=== PATIENT | female | born 1975 | race Caucasian/White ===

== ENCOUNTER 2016-05-01 10:26 | Outpatient (CLI) | payer OTHER | END 2016-05-01 10:27 | disposition home or self-care (01) | DX: Z00.00 Encounter for general adult medical examination without abnormal findings (principal) ==

== ENCOUNTER 2016-10-26 15:23 | Outpatient (CLI) | payer OTHER ==
[2016-10-26 19:05] LABS: BASOPHILS # (AUTO) 0.1 10^3/uL (0.0-0.1); BASOPHILS % (AUTO) 1.1 %; EOSINOPHILS # (AUTO) 0.2 10^3/uL (0.0-0.7); EOSINOPHILS % (AUTO) 2.9 %; HCT - HEMATOCRIT 41.7 % (37.0-47.0); HGB - HEMOGLOBIN 13.7 g/dL (12.0-16.0); LYMPHOCYTES # (AUTO) 2.7 10^3/uL (1.5-3.5); LYMPHOCYTES % (AUTO) 39.7 %; MEAN CORPUSCULAR HEMOGLOBIN 33.3 pg (27.0-31.0); MEAN CORPUSCULAR HGB CONC 32.9 g/dL (32.0-36.0); MEAN CORPUSCULAR VOLUME 101.2 fL (81.0-99.0); MEAN PLATELET VOLUME 7.6 fL (7.9-10.8); MONOCYTES # (AUTO) 0.5 10^3/uL (0.0-1.0); MONOCYTES % (AUTO) 7.1 %; NEUTROPHILS # (AUTO) 3.3 10^3/uL (1.5-6.6); NEUTROPHILS % (AUTO) 49.2 %; NUCLEATED RED BLOOD CELLS AUTO 0.1 /100WBC; RED BLOOD COUNT 4.12 10^6/uL (4.20-5.40); UNCORRECTED WHITE BLOOD COUNT 6.8 x10^3/uL; WHITE BLOOD COUNT 6.8 x10^3/uL (4.8-10.8)
[2016-10-26 19:13] LABS: ALBUMIN/GLOBULIN RATIO 1.1 (1.0-2.2); BILIRUBIN,TOTAL 0.6 mg/dL (0.2-1.0); BUN - BLOOD UREA NITROGEN 18 mg/dL (6-20); CALCIUM 9.5 mg/dL (8.5-10.3); CARBON DIOXIDE - CO2 26 mmol/L (21-32); CHLORIDE 97 mmol/L (101-111); CHOL/HDL RATIO 2.6 (<4.4); CHOLESTEROL 290 mg/dL; GFR - MDRD 61 (>89); GLUCOSE 122 mg/dL (70-100); HDL CHOLESTEROL 111 mg/dL; LDL/HDL RATIO 1.3 (<4.4); POTASSIUM 4.5 mmol/L (3.5-5.0); SODIUM 134 mmol/L (135-145); TOTAL PROTEIN 7.6 g/dL (6.7-8.2); TRIGLYCERIDES 158 mg/dL; VLDL CHOLESTEROL 32 mg/dL
[2016-10-26 19:27] LABS: HEMOGLOBIN A1C 1.23 g/dL
[2016-10-26 19:32] LABS: H. PYLORI IGG ANTIBODY Negative (Negative); HPYLORI NEG QC Negative (Negative); HPYLORI POS QC POSITIVE (Positive)
== END 2016-10-26 15:24 ==
LOC: LAB.WCP 15:23
PROVIDERS: ATTEND Family Medicine
DX: E10.65 Type 1 diabetes mellitus with hyperglycemia (principal)
CPT/HCPCS: 36415; 80053; 80061; 83036; 85025; 87339

== ENCOUNTER 2017-08-20 17:40 | Inpatient (IN) | payer OTHER ==
[2017-08-20] MEDS ORDERED: SODIUM CHLORIDE 0.9% 1,000 ML IV ONE (18:01)
[2017-08-20] MEDS ORDERED: HYDROmorphone 2 MG/ML VIAL IVP STA ×2 (18:01→20:02)
[2017-08-20] MEDS ORDERED: METOCLOPRAMIDE 10 MG/2 ML VIAL IVP STA (18:01)
[2017-08-20] MEDS ORDERED: PANTOPRAZOLE 40 MG VIAL IVP STA (18:02)
--- NOTE | 2017-08-20 18:04 | ED Physician Documentation ---
PD HPI ABD PAIN - Stated complaint Stated Complaint: VOMITING - Chief complaint Chief Complaint: Abd Pain - History obtained from History obtained from: Patient, Family - History of Present Illness Timing - onset: Last night (42-year-old woman with long-standing type 1 diabetes diagnosed at age 10, history of diabetic gastroparesis and ulcers has been vomiting with blood streaks since yesterday. She does not think she is in DKA. She has upper abdominal pain that is burning in nature and nonradiating.) Review of Systems Ten Systems: 10 systems reviewed and negative Constitutional: reports: Fatigue. denies: Fever, Chills Cardiac: denies: Chest pain / pressure, Palpitations Respiratory: denies: Dyspnea, Cough GI: reports: Abdominal Pain, Nausea, Vomiting. denies: Constipation, Diarrhea PD PAST MEDICAL HISTORY - Past Medical History Cardiovascular: Hypertension Respiratory: Pneumonia Endocrine/Autoimmune: Type 1 diabetes GI: GERD : None HEENT: None Psych: Depression, Anxiety Musculoskeletal: Osteoarthritis, Osteoporosis, Chronic back pain Derm: None - Past Surgical History Past Surgical History: No - Present Medications Home Medications: Ambulatory Orders Medication Instructions Recorded Confirmed Insulin Glargine,Hum.rec.anlog 12 unit SQ DAILY 08/24/12 08/20/17 [Lantus] Albuterol [Ventolin Hfa] 2 puffs INH Q4H PRN 03/12/14 08/20/17 Metoprolol Tartrate [Lopressor] 100 mg PO DAILY 11/18/14 08/20/17 Insulin Glulisine [Apidra] 2 units SQ DAILY PRN 10/13/15 08/20/17 Levothyroxine [Synthroid] 75 mcg ORAL DAILY 10/13/15 08/20/17 Oxycodone HCl/Acetaminophen 1 - 2 each PO Q6H PRN #14 tablet 10/13/15 08/20/17 [Percocet 5-325 mg Tablet] Citalopram [CeleXA] 20 mg PO DAILY 08/20/17 08/20/17 Lisinopril 10 mg PO DAILY 08/20/17 08/20/17 - Allergies Allergies/Adverse Reactions: Allergies Allergy/AdvReac Type Severity Reaction Status Date / Time morphine Allergy Hallucinati Verified 01/26/14 10:47 ons - Social History Does the pt smoke?: Yes Smoking Status: Current every day smoker Does the pt drink ETOH?: Yes Does the pt have substance abuse?: No PD ED PE NORMAL - Vitals Vital signs reviewed: Yes - General General: Alert and oriented X 3, No acute distress - HEENT HEENT: PERRL, EOMI - Neck Neck: Supple, no meningeal sign, No bony TTP - Cardiac Cardiac: RRR, No murmur - Respiratory Respiratory: No respiratory distress, Clear bilaterally - Abdomen Abdomen: Normal bowel sounds, Soft, Non tender - Neuro Neuro: Alert and oriented X 3, Normal speech - Psych Psych: Normal mood, Normal affect Results - Vitals Vitals: Vital Signs - 24 hr 08/20/17 08/20/17 17:50 19:24 Temperature 36.4 C L Heart Rate 91 87 Respiratory 18 16 Rate Blood Pressure 138/102 H 139/79 H O2 Saturation 100 100 Oxygen O2 Source Room air - Labs Labs: Laboratory Tests 08/20/17 08/20/17 08/20/17 17:56 18:45 18:45 WBC 9.6 RBC 4.06 L Hgb 12.6 Hct 39.1 MCV 96.4 MCH 31.2 H MCHC 32.3 RDW 15.5 H Plt Count 347 MPV 7.8 L Neut # (Auto) 8.3 H Lymph # (Auto) 1.0 L [place] # (Auto) 0.3 Eos # (Auto) 0.0 Baso # (Auto) 0.0 Absolute Nucleated RBC 0.00 Nucleated RBC % 0.0 VBG pH VBG pCO2 VBG pO2 VBG HCO3 VBG Total CO2 VBG O2 Saturation VBG Base Excess Sodium 131 L Potassium 4.3 Chloride 92 L Carbon Dioxide 13 L Anion Gap 26.0 H BUN 26 H Creatinine 1.4 H Estimated GFR (MDRD) 41 L Glucose 405 H POC Whole Bld Glucose 351 H Calcium 9.7 Total Bilirubin 1.6 H AST 27 ALT 24 Alkaline Phosphatase 102 Total Protein 7.4 Albumin 4.0 Globulin 3.4 Albumin/Globulin Ratio 1.2 Lipase 17 L Serum Ketones MODERATE H 08/20/17 18:45 WBC RBC Hgb Hct MCV MCH MCHC RDW Plt Count MPV Neut # (Auto) Lymph # (Auto) [place] # (Auto) Eos # (Auto) Baso # (Auto) Absolute Nucleated RBC Nucleated RBC % VBG pH 7.279 L VBG pCO2 28.8 L VBG pO2 75.4 H VBG HCO3 13.2 L VBG Total CO2 14.1 L VBG O2 Saturation 94.6 H VBG Base Excess -12.1 L Sodium Potassium Chloride Carbon Dioxide Anion Gap BUN Creatinine Estimated GFR (MDRD) Glucose POC Whole Bld Glucose Calcium Total Bilirubin AST ALT Alkaline Phosphatase Total Protein Albumin Globulin Albumin/Globulin Ratio Lipase Serum Ketones Procedures - General procedure General procedure: She was difficult for IV access, the nurse tried and failed. I personally placed a long 22-gauge IV in the right ankle antecubital fossa after ChloraPrep which flushed and saeid well after a couple of other attempts. PD MEDICAL DECISION MAKING - ED course ED course: 42-year-old woman with long-standing diabetes presents with vomiting and hematemesis. She had no hematemesis in the department and she is hemodynamically stable with reassuring hemoglobin. She was administered IV fluids, Protonix, and divided doses of pain medication and antiemetics. She was found to be in DKA and I spoke with Dr. Keller for admission at 7:15 PM. She was placed on an insulin drip. - Critical Care Time(min): 35 Time Includes: Direct patient care, Review records, Reassess patient, Document care, Coordinate care, Medical consult, Family consult for tx dec Data interpretation: Labs Procedures included in critical care time: Peripheral IV Departure - Departure Disposition: 66 [facility] DC/Xfer Clinical Impression: Upper GI bleed Ketosis due to diabetes Qualifiers: Diabetes mellitus type: type 1 Diabetes mellitus complication detail: without coma Qualified Code(s): E10.10 - Type 1 diabetes mellitus with ketoacidosis without coma Condition: Serious Discharge Date/Time: 08/20/17 20:24
[2017-08-20 18:58] LABS: BASOPHILS % (AUTO) 0.3 %; EOSINOPHILS % (AUTO) 0.1 %; HGB - HEMOGLOBIN 12.6 g/dL (12.0-16.0); LYMPHOCYTES % (AUTO) 10.4 %; MEAN CORPUSCULAR HEMOGLOBIN 31.2 pg (27.0-31.0); MEAN CORPUSCULAR HGB CONC 32.3 g/dL (32.0-36.0); MEAN CORPUSCULAR VOLUME 96.4 fL (81.0-99.0); MEAN PLATELET VOLUME 7.8 fL (7.9-10.8); MONOCYTES # (AUTO) 0.3 10^3/uL (0.0-1.0); MONOCYTES % (AUTO) 3.1 %; NEUTROPHILS # (AUTO) 8.3 10^3/uL (1.5-6.6); NEUTROPHILS % (AUTO) 86.1 %; PLT - PLATELET COUNT 347 10^3/uL (130-450); RED BLOOD COUNT 4.06 10^6/uL (4.20-5.40); RED CELL DISTRIBUTION WIDTH 15.5 % (12.0-15.0); WHITE BLOOD COUNT 9.6 x10^3/uL (4.8-10.8)
[2017-08-20 19:07] LABS: VBG BASE EXCESS -12.1 mmol/L (-2 - +2); VBG PCO2 28.8 mmHg (41-51); VBG PH 7.279 (7.31-7.41); VBG PO2 75.4 mmHg (25-47); VBG TOTAL CO2 14.1 mmol/L (24-29)
[2017-08-20 19:09] LABS: KETONES, SERUM (ACETEST) MODERATE (NEGATIVE)
[2017-08-20 19:15] LABS: ALBUMIN/GLOBULIN RATIO 1.2 (1.0-2.2); ALKALINE PHOSPHATASE 102 IU/L (42-121); ALT ALANINE AMINOTRANSFERASE 24 IU/L (10-60); AST ASPARTATE AMINOTRANSFERASE 27 IU/L (10-42); BILIRUBIN,TOTAL 1.6 mg/dL (0.2-1.0); BUN - BLOOD UREA NITROGEN 26 mg/dL (6-20); CALCIUM 9.7 mg/dL (8.5-10.3); CARBON DIOXIDE - CO2 13 mmol/L (21-32); CHLORIDE 92 mmol/L (101-111); CREATININE 1.4 mg/dL (0.4-1.0); GFR - MDRD 41 (>89); GLUCOSE 405 mg/dL (70-100); LIPASE 17 U/L (22-51); SODIUM 131 mmol/L (135-145); TOTAL PROTEIN 7.4 g/dL (6.7-8.2)
[2017-08-20] MEDS ORDERED: INSULIN REGULAR HUMAN 100 UNIT in SODIUM CHLORIDE 0.9% 100ML 99 ML IV STA (19:28)
[2017-08-20] MEDS ORDERED: INSULIN REGULAR HUMAN 100 UNIT in SODIUM CHLORIDE 0.9% 100ML 99 ML IV SCH ×2 (19:29→22:22)
[2017-08-20] MEDS ORDERED: oxyCODONE/ACET 5/325 Prepack 4 PO PRN (19:40)
[2017-08-20] MEDS: ONDANSETRON 4 MG/2 ML VIAL IVP STA ×2 (19:49→21:03)
[2017-08-20 19:56] LABS: BASOPHILS % (AUTO) 0.3 %; EOSINOPHILS % (AUTO) 0.1 %; HGB - HEMOGLOBIN 11.7 g/dL (12.0-16.0); LYMPHOCYTES # (AUTO) 0.8 10^3/uL (1.5-3.5); LYMPHOCYTES % (AUTO) 9.1 %; MEAN CORPUSCULAR HEMOGLOBIN 31.6 pg (27.0-31.0); MEAN CORPUSCULAR VOLUME 98.7 fL (81.0-99.0); MEAN PLATELET VOLUME 7.5 fL (7.9-10.8); MONOCYTES # (AUTO) 0.3 10^3/uL (0.0-1.0); MONOCYTES % (AUTO) 3.1 %; NEUTROPHILS % (AUTO) 87.4 %; PLT - PLATELET COUNT 310 10^3/uL (130-450); RED BLOOD COUNT 3.71 10^6/uL (4.20-5.40); RED CELL DISTRIBUTION WIDTH 15.7 % (12.0-15.0); WHITE BLOOD COUNT 9.2 x10^3/uL (4.8-10.8)
[2017-08-20 19:58] LABS: VBG PH 7.292 (7.31-7.41)
[2017-08-20 19:59] LABS: VBG BASE EXCESS -13.9 mmol/L (-2 - +2); VBG PCO2 22.6 mmHg (41-51); VBG PO2 146.1 mmHg (25-47); VBG TOTAL CO2 11.4 mmol/L (24-29)
[2017-08-20] MEDS ORDERED: NS W/20 MEQ KCL 1,000 ML IV SCH (20:00)
[2017-08-20 20:21] LABS: HEMOGLOBIN A1C 0.89 g/dL
[2017-08-20 20:28] LABS: CALCIUM 8.8 mg/dL (8.5-10.3); CREATININE 1.4 mg/dL (0.4-1.0)
[2017-08-20 20:38] LABS: HB2 TOTAL 12.6 g/dL; HEMOGLOBIN A1C % 8.6 % (4.6-6.2)
[2017-08-20] MEDS: SODIUM CHLORIDE FLUSH 0.9% 10 ML SYRINGE IVP PRN (21:02)
[2017-08-20] MEDS: PANTOPRAZOLE 40 MG VIAL IVP SCH (21:02)
[2017-08-20] MEDS ORDERED: PROCHLORPERAZINE 10 MG/2 ML VIAL IVP PRN (21:05)
[2017-08-20] MEDS ORDERED: PROMETHAZINE 25 MG/1 ML VIAL IM PRN (21:05)
[2017-08-20] MEDS ORDERED: ONDANSETRON 4 MG/2 ML VIAL IVP PRN (21:05)
[2017-08-20 21:06] LABS: BILIRUBIN,URINE NEGATIVE (NEGATIVE); GLUCOSE, URINE (UA) 500 mg/dL (NEGATIVE); KETONES,URINE (UA) >=80 mg/dL (NEGATIVE); LEUKOCYTE ESTERASE, URINE NEGATIVE (NEGATIVE); NITRITE,URINE NEGATIVE (NEGATIVE); OCCULT BLOOD,URINE LARGE (NEGATIVE); PH,URINE 5.5 PH (5.0-7.5); PROTEIN,URINE NEGATIVE (NEGATIVE); UROBILINOGEN,URINE 0.2 (NORMAL) E.U./dL (NORMAL)
[2017-08-20 21:08] LABS: CLARITY,URINE CLEAR (CLEAR)
[2017-08-20] MEDS ORDERED: ONDANSETRON 4 MG/2 ML VIAL ONE (21:13)
[2017-08-20 21:20] LABS: BACTERIA,URINE Moderate /HPF (None Seen); SQUAMOUS EPITHELIAL CELL,UR MOD Squamous (<= Few); WBC CLUMPS,URINE PRESENT
[2017-08-20 22:11] LABS: CALCIUM 8.7 mg/dL (8.5-10.3); CREATININE 1.5 mg/dL (0.4-1.0)
[2017-08-20] MEDS ORDERED: ACETAMINOPHEN 325 MG TABLET PO PRN (22:29)
--- NOTE | 2017-08-20 22:30 | HISTORY & PHYSICAL EXAMINATION ---
Chief Complaint - Chief Complaint Chief Complaint: Hematemesis History of Present Illness - Admitted From Admitted From:: Emergency Department - History Obtained From Records Reviewed: Yes History obtained from: Patient Exam Limitations: None - History of Present Illness HPI Comment/Other: Patient is a 42-year-old female with a past medical history significant for type 1 diabetes since the age of 9 on insulin, hypertension, hypothyroidism, peripheral neuropathy, Charcot joints left foot, asthma, diabetic retinopathy, diabetic gastroparesis and carpal tunnel syndrome who presented to the emergency department with a chief complaint of hematemesis. The patient states that over the last few weeks she has been under a great deal of stress. She states that she has been moving from an apartment to a house and this is created stress. Also she recently had her mother moved in with her who is elderly and drinks a lot of alcohol. She has been having to take care of her mother and deal with moving into a new home all during this time. She states that she was hospitalized at [facility] earlier this year in March/ April and at that time had had dark stools and hematemesis and was found to have a gastric ulcer and was placed on omeprazole and sucralfate which she has not been taking as was prescribed. The patient states that over the last 3-4 days she has had decreased appetite and really has not eaten much since 3 days ago. She states that yesterday she was at [facility] when she became nauseated and had to vomit during the service. She states that she came home and then had another episode of emesis. She states that shortly after this she began to develop abdominal pain she states it was relocated in the epigastric region and radiated up her chest and into her throat. She states that it was a gnawing sensation and was burning up into her chest and into her throat. She states that this abdominal pain continued to get worse through the night and so did her vomiting. After several episodes of vomiting she began to notice that her emesis became dark and then this morning was dark with blood streaks. She states that she tried to drink water but could not even keep that down. She states that once she noticed blood streaks in her vomit she decided to come to the emergency department as she was concerned she was having another ulcer and bleed. The patient also admits to polydipsia but denies any polyuria. She states that she was checking her blood sugars at home and they were not significantly more elevated than her baseline. The patient denies any fevers or chills. She also denies any diarrhea, black or bloody stools. Of note the patient also admits to a 40 pound weight loss over the last 6 months. Patient denies any headaches, blurred vision, runny nose, sore throat, nasal congestion, difficulty swallowing, chest pain, palpitations, orthopnea, PND, increased lower extremity swelling, shortness of air, cough, dysuria, hematuria , joint pain, muscle aches, back pain, neck stiffness, skin rashes, skin changes , hair loss, night sweats or any focal neurologic deficits. On presentation to the emergency department the patient was afebrile and vital signs were fairly normal with heart rate of 91 and a slightly elevated blood pressure. Patient was not in any respiratory distress. The patient underwent routine lab work which revealed a anion gap metabolic acidosis with a glucose of 405 and positive serum ketones with an anion gap of 26. Given these findings patient was in diabetic ketoacidosis and placed on an insulin drip in the emergency department. The patient's blood gas revealed a pH of 7.27 with a bicarb of 13. The patient's hemoglobin was stable at 12.6 and there was no stool guaiac performed in the emergency department. The patient was admitted to the intensive care unit for diabetic ketoacidosis. History - Past Medical History Cardiovascular: reports: Hypertension Respiratory: reports: Asthma, Pneumonia Neuro: reports: Peripheral neuropathy Endocrine/Autoimmune: reports: Type 1 diabetes, HyPOthyroidism GI: reports: GERD, Other (Diabetic gastroparesis) : reports: None HEENT: reports: Other (Diabetic retinopathy) Psych: reports: Depression, Anxiety Musculoskeletal: reports: Osteoarthritis, Osteoporosis, Chronic back pain Derm: reports: None MRSA Hx?: No - Family & Social History Family History: Mother: Hypertension Family History Comment/Other: Patient denies any family history of diabetes, heart disease or cancer. Living arrangement: At home Living Situation: With spouse/s.o., With family Social History Notes: Patient lives in [place], [place]. She just recently moved from an apartment in [place] down to a house in [place]. She is living on [address] property. She recently had her mother moved in with her and has been under a lot of stress having to take care of her mother as well as the move. She states that her works at [employer] 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 She states that she has smoked most of her life but quit recently and now is back to smoking about 5 cigarettes a day. Prior to that she states that she smoked anywhere from half a pack to a pack a day for more than 20 years. She states that she does also drink coffee daily. She was previously a drinker and would drink daily but states she cut back in about a week ago she stopped drinking completely. She states that she does smoke marijuana on a regular basis but denies any other illicit drug use. The patient has never had any children. - POLST Patient has POLST: No POLST Status: Full Code Meds/Allgy - Home Medications Home Medications: Ambulatory Orders Medication Instructions Recorded Confirmed Insulin Glargine,Hum.rec.anlog 12 unit SQ DAILY 08/24/12 08/20/17 [Lantus] Albuterol [Ventolin Hfa] 2 puffs INH Q4H PRN 03/12/14 08/20/17 Metoprolol Tartrate [Lopressor] 100 mg PO DAILY 11/18/14 08/20/17 Insulin Glulisine [Apidra] 2 units SQ DAILY PRN 10/13/15 08/20/17 Levothyroxine [Synthroid] 75 mcg ORAL DAILY 10/13/15 08/20/17 Oxycodone HCl/Acetaminophen 1 - 2 each PO Q6H PRN #14 tablet 10/13/15 08/20/17 [Percocet 5-325 mg Tablet] Citalopram [CeleXA] 20 mg PO DAILY 08/20/17 08/20/17 Lisinopril 10 mg PO DAILY 08/20/17 08/20/17 - Allergies Allergies/Adverse Reactions: Allergies Allergy/AdvReac Type Severity Reaction Status Date / Time morphine Allergy Hallucinati Verified 01/26/14 10:47 ons Review of Systems - Other Findings Other Findings: A comprehensive review of systems was performed the pertinent positives and negatives are stated above in the HPI and the remainder of the review of systems is negative. Exam - Vital Signs Reviewed Vital Signs: Yes Vital Signs: Vital Signs x48h Temp Pulse Pulse Resp BP BP Pulse Ox 08/20/17 21:00 97 14 162/94 H 100 08/20/17 20:33 37 C 83 14 125/84 H 100 08/20/17 20:15 83 16 134/66 H 99 - Physical Exam General Appearance: positive: No acute distress, Alert Eyes Bilateral: positive: Normal inspection, PERRL, EOMI, No lid inflammation, Conjunctivae nml, No scleral icterus ENT: positive: ENT inspection nml, Pharynx nml, Dry mucous membranes. negative : Purulent nasal drainage, Pharyngeal erythema, Oral lesions Neck: positive: Nml inspection, Thyroid nml, No JVD, Trachea midline. negative : Thyromegaly, Lymphadenopathy (R), Lymphadenopathy (L), Carotid bruit, Tracheal deviation Respiratory: positive: Chest non-tender, No respiratory distress. negative: Wheezes, Rales, Rhonchi Cardiovascular: positive: Regular rate & rhythm, No murmur, No gallop Peripheral Pulses: positive: 2+ Abdomen: positive: Non-tender, No organomegaly, Nml bowel sounds, No distention. negative: Guarding, Rebound, Hepatomegaly Back: positive: Nml inspection. negative: CVA tenderness (R), CVA tenderness (L ) Skin: positive: Color nml, No rash, Warm. negative: Cyanosis, Diaphoresis, Pallor, Skin rash Extremities: positive: Non-tender, Full ROM, Nml appearance, No pedal edema Neurologic/Psychiatric: positive: Oriented x3, CN's nml (2-12), Motor nml, Sensation nml, Mood/affect nml Conclusion/Plan - Problem List (1) Diabetic ketoacidosis Conclusion/Plan: Patient presented to the emergency department with chief complaint of hematemesis but had been having nausea and vomiting for the last 2 days with abdominal pain, decreased appetite and polydipsia. On presentation the patient was found to be in DKA with a pH of 7.27, anion gap of 26, positive serum ketones and bicarb of 13. Patient's blood glucose was elevated at 405 and she was started on an insulin drip in the emergency department and admitted to the intensive care unit. The patient has a history of type 1 diabetes. Plan: Admit to the intensive care unit Insulin drip 0.1 U/kg/h IV fluids Check blood glucose every hour until DKA resolves Check serum ketones and anion gap every 2 hours until DKA resolves Once DKA has resolved and anion gap is closed patient will be started on home dose of Lantus, sliding scale insulin and diabetic diet Check hemoglobin A1c Qualifiers: Diabetes mellitus type: type 1 Diabetes mellitus complication detail: without coma Qualified Code(s): E10.10 - Type 1 diabetes mellitus with ketoacidosis without coma (2) MARTITA (acute kidney injury) Conclusion/Plan: Patient does have what appears to be acute kidney injury with a creatinine of 1.4 it appears her baseline creatinine is around 0.7-1. This appears to be prerenal azotemia likely secondary to DKA and dehydration. Plan: Patient will be given IV fluids We will monitor the patient's creatinine We will avoid any nephrotoxic agents (3) Hematemesis Conclusion/Plan: The patient presented with hematemesis after hours of nausea and vomiting. The patient does have a history of upper GI bleed with a gastric ulcer in March/ April 2017 where she required blood transfusion and had an EGD performed. Currently the patient's hemoglobin appears to be stable and she is not having any further hematemesis. From what patient describes it appears to be mild hematemesis and likely secondary to esophageal tear rather than gastric ulcer or upper GI bleed. Given her history however we will monitor her closely for possible GI bleed. It is concerning that the patient has had significant weight loss over the last 6 months and even if EGD is not necessary during this hospitalization would recommend outpatient EGD to follow-up on her previous gastric ulcer. Plan: Protonix IV 40 mg twice daily Monitor H&H every 6 hours for 24 hours Monitor for any further hematemesis or black or tarry stools IV fluids Transfuse if hemoglobin less than 7 Consider surgical consultation for EGD if patient's hemoglobin begins to drop or she has further signs of bleeding. Qualifiers: Nausea presence: with nausea Qualified Code(s): K92.0 - Hematemesis (4) Chronic pain Conclusion/Plan: Patient has chronic pain in her left foot secondary to Charcot joint. She states that she takes Percocet as needed at home. Currently patient is having pain in the joint as well as abdominal pain. We will place her on IV fentanyl as needed and once she is able to tolerate oral medication she will be placed on oxycodone. Qualifiers: Chronic pain type: other chronic pain Qualified Code(s): G89.29 - Other chronic pain (5) Hypertension Conclusion/Plan: Patient has history of hypertension and blood pressure was elevated on presentation. Patient be continued on her home medications and we will monitor her blood pressure while she is hospitalized. If patient's blood pressure continues to be elevated we will consider titrating her home blood pressure medications. Qualifiers: Hypertension type: essential hypertension Qualified Code(s): I10 - Essential (primary) hypertension (6) Hypothyroidism Conclusion/Plan: Patient has a history of hypothyroidism and is on Synthroid at home. While she is hospitalized she will can be continued on her home dose of Synthroid. Currently she is not having any significant symptoms of hypothyroidism. We will check her TSH in the morning. Qualifiers: Hypothyroidism type: unspecified Qualified Code(s): E03.9 - Hypothyroidism , unspecified (7) Asthma Conclusion/Plan: Patient has history of asthma but currently is not having an asthma exacerbation. She appears to be stable from the standpoint of her asthma will be placed on albuterol nebulizer as needed while she is hospitalized. Qualifiers: Asthma severity: mild Asthma persistence: intermittent Asthma complication type: uncomplicated Qualified Code(s): J45.20 - Mild intermittent asthma, uncomplicated (8) Depression Conclusion/Plan: Patient has history of depression and uses Celexa at home. We will continue her home dose of Celexa while she is hospitalized. Qualifiers: Depression Type: unspecified Qualified Code(s): F32.9 - Major depressive disorder, single episode, unspecified (9) Tobacco abuse Conclusion/Plan: Patient recently restarted tobacco in the form of 5 cigarettes daily. The patient was advised to quit smoking especially given her history of diabetes as she puts herself at risk for multiple complications. The patient understood this and is motivated to quit. She will be offered nicotine patch while she is hospitalized. - Lab Results Lab results reviewed: Yes Fish Bones: 08/21/17 00:48 08/20/17 23:30 Other Lab Results: Laboratory Tests 08/20/17 08/20/17 08/20/17 17:56 18:45 18:45 WBC 9.6 RBC 4.06 L Hgb 12.6 Hct 39.1 MCV 96.4 MCH 31.2 H MCHC 32.3 RDW 15.5 H Plt Count 347 MPV 7.8 L Neut # (Auto) 8.3 H Lymph # (Auto) 1.0 L [place] # (Auto) 0.3 Eos # (Auto) 0.0 Baso # (Auto) 0.0 Absolute Nucleated RBC 0.00 Nucleated RBC % 0.0 VBG pH VBG pCO2 VBG pO2 VBG HCO3 VBG Total CO2 VBG O2 Saturation VBG Base Excess Sodium 131 L Potassium 4.3 Chloride 92 L Carbon Dioxide 13 L Anion Gap 26.0 H BUN 26 H Creatinine 1.4 H Estimated GFR (MDRD) 41 L Glucose 405 H POC Whole Bld Glucose 351 H Glycated Hemoglobin Estim Average Glucose Calcium 9.7 Total Bilirubin 1.6 H AST 27 ALT 24 Alkaline Phosphatase 102 Total Protein 7.4 Albumin 4.0 Globulin 3.4 Albumin/Globulin Ratio 1.2 Lipase 17 L Urine Color Urine Clarity Urine pH Ur Specific Jeff Urine Protein Urine Glucose (UA) Urine Ketones Urine Occult Blood Urine Nitrite Urine Bilirubin Urine Urobilinogen Ur Leukocyte Esterase Urine RBC Urine WBC Urine WBC Clumps Ur Squamous Epith Cells Urine Bacteria Ur Microscopic Review Urine Culture Comments Serum Ketones MODERATE H 08/20/17 08/20/17 08/20/17 18:45 19:44 19:50 WBC RBC Hgb Hct MCV MCH MCHC RDW Plt Count MPV Neut # (Auto) Lymph # (Auto) [place] # (Auto) Eos # (Auto) Baso # (Auto) Absolute Nucleated RBC Nucleated RBC % VBG pH 7.279 L VBG pCO2 28.8 L VBG pO2 75.4 H VBG HCO3 13.2 L VBG Total CO2 14.1 L VBG O2 Saturation 94.6 H VBG Base Excess -12.1 L Sodium 131 L Potassium 4.2 Chloride 97 L Carbon Dioxide 13 L Anion Gap 22.0 H BUN 25 H Creatinine 1.4 H Estimated GFR (MDRD) 41 L Glucose 382 H POC Whole Bld Glucose 336 H Glycated Hemoglobin Estim Average Glucose Calcium 8.8 Total Bilirubin AST ALT Alkaline Phosphatase Total Protein Albumin Globulin Albumin/Globulin Ratio Lipase Urine Color Urine Clarity Urine pH Ur Specific Jeff Urine Protein Urine Glucose (UA) Urine Ketones Urine Occult Blood Urine Nitrite Urine Bilirubin Urine Urobilinogen Ur Leukocyte Esterase Urine RBC Urine WBC Urine WBC Clumps Ur Squamous Epith Cells Urine Bacteria Ur Microscopic Review Urine Culture Comments Serum Ketones 08/20/17 08/20/17 08/20/17 19:50 19:50 19:50 WBC 9.2 RBC 3.71 L Hgb 11.7 L Hct 36.6 L MCV 98.7 MCH 31.6 H MCHC 32.0 RDW 15.7 H Plt Count 310 MPV 7.5 L Neut # (Auto) 8.0 H Lymph # (Auto) 0.8 L [place] # (Auto) 0.3 Eos # (Auto) 0.0 Baso # (Auto) 0.0 Absolute Nucleated RBC 0.00 Nucleated RBC % 0.0 VBG pH 7.292 L VBG pCO2 22.6 L VBG pO2 146.1 H VBG HCO3 10.7 L VBG Total CO2 11.4 L VBG O2 Saturation 98.8 H VBG Base Excess -13.9 L Sodium Potassium Chloride Carbon Dioxide Anion Gap BUN Creatinine Estimated GFR (MDRD) Glucose POC Whole Bld Glucose Glycated Hemoglobin 8.6 H Estim Average Glucose 200 H Calcium Total Bilirubin AST ALT Alkaline Phosphatase Total Protein Albumin Globulin Albumin/Globulin Ratio Lipase Urine Color Urine Clarity Urine pH Ur Specific Jeff Urine Protein Urine Glucose (UA) Urine Ketones Urine Occult Blood Urine Nitrite Urine Bilirubin Urine Urobilinogen Ur Leukocyte Esterase Urine RBC Urine WBC Urine WBC Clumps Ur Squamous Epith Cells Urine Bacteria Ur Microscopic Review Urine Culture Comments Serum Ketones 08/20/17 08/20/17 08/20/17 20:30 20:52 21:40 WBC RBC Hgb Hct MCV MCH MCHC RDW Plt Count MPV Neut # (Auto) Lymph # (Auto) [place] # (Auto) Eos # (Auto) Baso # (Auto) Absolute Nucleated RBC Nucleated RBC % VBG pH VBG pCO2 VBG pO2 VBG HCO3 VBG Total CO2 VBG O2 Saturation VBG Base Excess Sodium 134 L Potassium 4.0 Chloride 101 Carbon Dioxide 20 L Anion Gap 13.0 BUN 26 H Creatinine 1.5 H Estimated GFR (MDRD) 38 L Glucose 297 H POC Whole Bld Glucose 363 H Glycated Hemoglobin Estim Average Glucose Calcium 8.7 Total Bilirubin AST ALT Alkaline Phosphatase Total Protein Albumin Globulin Albumin/Globulin Ratio Lipase Urine Color YELLOW Urine Clarity CLEAR Urine pH 5.5 Ur Specific Jeff 1.025 Urine Protein NEGATIVE Urine Glucose (UA) 500 H Urine Ketones >=80 H Urine Occult Blood LARGE H Urine Nitrite NEGATIVE Urine Bilirubin NEGATIVE Urine Urobilinogen 0.2 (NORMAL) Ur Leukocyte Esterase NEGATIVE Urine RBC 6-10 H Urine WBC 11-25 H Urine WBC Clumps PRESENT Ur Squamous Epith Cells MOD Squamous H Urine Bacteria Moderate H Ur Microscopic Review INDICATED Urine Culture Comments NOT INDICATED Serum Ketones 08/20/17 08/20/17 08/20/17 21:46 22:54 23:30 WBC RBC Hgb Hct MCV MCH MCHC RDW Plt Count MPV Neut # (Auto) Lymph # (Auto) [place] # (Auto) Eos # (Auto) Baso # (Auto) Absolute Nucleated RBC Nucleated RBC % VBG pH VBG pCO2 VBG pO2 VBG HCO3 VBG Total CO2 VBG O2 Saturation VBG Base Excess Sodium 137 Potassium 4.1 Chloride 105 Carbon Dioxide 19 L Anion Gap 13.0 BUN 24 H Creatinine 1.2 H Estimated GFR (MDRD) 49 L Glucose 232 H POC Whole Bld Glucose 317 H 245 H Glycated Hemoglobin Estim Average Glucose Calcium 8.8 Total Bilirubin AST ALT Alkaline Phosphatase Total Protein Albumin Globulin Albumin/Globulin Ratio Lipase Urine Color Urine Clarity Urine pH Ur Specific Jeff Urine Protein Urine Glucose (UA) Urine Ketones Urine Occult Blood Urine Nitrite Urine Bilirubin Urine Urobilinogen Ur Leukocyte Esterase Urine RBC Urine WBC Urine WBC Clumps Ur Squamous Epith Cells Urine Bacteria Ur Microscopic Review Urine Culture Comments Serum Ketones MODERATE H 08/21/17 08/21/17 08/21/17 00:10 00:48 00:54 WBC RBC Hgb 11.8 L Hct 37.5 MCV MCH MCHC RDW Plt Count MPV Neut # (Auto) Lymph # (Auto) [place] # (Auto) Eos # (Auto) Baso # (Auto) Absolute Nucleated RBC Nucleated RBC % VBG pH VBG pCO2 VBG pO2 VBG HCO3 VBG Total CO2 VBG O2 Saturation VBG Base Excess Sodium Potassium Chloride Carbon Dioxide Anion Gap BUN Creatinine Estimated GFR (MDRD) Glucose POC Whole Bld Glucose 211 H 182 H Glycated Hemoglobin Estim Average Glucose Calcium Total Bilirubin AST ALT Alkaline Phosphatase Total Protein Albumin Globulin Albumin/Globulin Ratio Lipase Urine Color Urine Clarity Urine pH Ur Specific Jeff Urine Protein Urine Glucose (UA) Urine Ketones Urine Occult Blood Urine Nitrite Urine Bilirubin Urine Urobilinogen Ur Leukocyte Esterase Urine RBC Urine WBC Urine WBC Clumps Ur Squamous Epith Cells Urine Bacteria Ur Microscopic Review Urine Culture Comments Serum Ketones Core Measures - Anticipated LOS I expect patient to be DC'd or transferred within 96 hours.: Yes - DVT/VTE - Prophylaxis VTE/DVT Prophylaxis med ordered at admit?: Yes
[2017-08-20] MEDS: fentaNYL 100 MCG/2 ML VIAL IVP PRN (23:23)
[2017-08-21 00:03] LABS: BUN - BLOOD UREA NITROGEN 24 mg/dL (6-20); CALCIUM 8.8 mg/dL (8.5-10.3); CARBON DIOXIDE - CO2 19 mmol/L (21-32); CHLORIDE 105 mmol/L (101-111); CREATININE 1.2 mg/dL (0.4-1.0); GFR - MDRD 49 (>89); GLUCOSE 232 mg/dL (70-100); SODIUM 137 mmol/L (135-145)
[2017-08-21 00:08] LABS: KETONES, SERUM (ACETEST) MODERATE (NEGATIVE)
[2017-08-21] MEDS: SODIUM CHLORIDE 0.9% 1,000 ML IV SCH ×4 (00:12→06:35)
[2017-08-21 01:00] LABS: HGB - HEMOGLOBIN 11.8 g/dL (12.0-16.0)
[2017-08-21] MEDS: INSULIN GLARGINE 300 UNIT/3 ML PEN SUBQ SCH ×2 (01:18→21:07)
[2017-08-21 01:41] LABS: HB2 TOTAL 12.7 g/dL; HEMOGLOBIN A1C 0.91 g/dL; HEMOGLOBIN A1C % 8.7 % (4.6-6.2)
[2017-08-21] MEDS ORDERED: ALBUTEROL NEB 2.5 MG/3 ML INH PRN (01:51)
[2017-08-21] MEDS ORDERED: DEXTROSE 5%-0.45% NACL 1,000 ML IV SCH (02:00)
[2017-08-21] MEDS: oxyCODONE 5 MG TABLET PO PRN ×5 (02:20→17:13)
[2017-08-21] MEDS: SODIUM CHLORIDE FLUSH 0.9% 10 ML SYRINGE IVP SCH ×3 (04:22→16:28)
[2017-08-21 05:39] LABS: MAGNESIUM 1.6 mg/dL (1.7-2.8); PHOSPHORUS 2.9 mg/dL (2.5-4.6)
[2017-08-21 05:45] LABS: ALBUMIN/GLOBULIN RATIO 1.1 (1.0-2.2); ALKALINE PHOSPHATASE 79 IU/L (42-121); ALT ALANINE AMINOTRANSFERASE 18 IU/L (10-60); AST ASPARTATE AMINOTRANSFERASE 22 IU/L (10-42); BILIRUBIN,TOTAL 1.1 mg/dL (0.2-1.0); BUN - BLOOD UREA NITROGEN 22 mg/dL (6-20); CALCIUM 8.2 mg/dL (8.5-10.3); CARBON DIOXIDE - CO2 17 mmol/L (21-32); CHLORIDE 107 mmol/L (101-111); GFR - MDRD 61 (>89); GLUCOSE 142 mg/dL (70-100); SODIUM 135 mmol/L (135-145); TOTAL PROTEIN 5.8 g/dL (6.7-8.2)
[2017-08-21] MEDS: fentaNYL 100 MCG/2 ML VIAL IVP PRN ×2 (07:05→21:19)
[2017-08-21 07:14] LABS: HGB - HEMOGLOBIN 11.4 g/dL (12.0-16.0)
[2017-08-21] MEDS: INSULIN ASPART 300 UNIT/3 ML PEN SUBQ SCH ×4 (08:50→21:06)
[2017-08-21] MEDS ORDERED: INSULIN REGULAR HUMAN 100 UNIT/1 ML 10 ML MDV ONE (08:52)
[2017-08-21] MEDS ORDERED: MAGNESIUM SULFATE 2 GRAM 2 GM/50 ML BAG IV ONE (09:08)
[2017-08-21] MEDS: METOPROLOL TARTRATE 50 MG TABLET PO SCH (09:47)
[2017-08-21] MEDS: LISINOPRIL 5 MG TABLET PO SCH (09:47)
[2017-08-21] MEDS: PANTOPRAZOLE 40 MG VIAL IVP SCH ×2 (09:47→21:07)
[2017-08-21] MEDS ORDERED: MAGNESIUM OXIDE 400 MG TABLET PO SCH (10:00)
[2017-08-21] MEDS: SODIUM CHLORIDE FLUSH 0.9% 10 ML SYRINGE IVP PRN ×2 (10:01→12:28)
[2017-08-21 12:20] LABS: HGB - HEMOGLOBIN 11.4 g/dL (12.0-16.0)
[2017-08-21] MEDS: NICOTINE 21 MG PATCH TOP SCH (14:43)
[2017-08-21] MEDS: SUCRALFATE 1 GM/10 ML UDC PO SCH ×4 (14:43→22:28)
[2017-08-21] MEDS: D5.45NS W/20 MEQ KCL 1,000 ML IV SCH (16:28)
--- NOTE | 2017-08-21 16:51 | PROVIDER PROGRESS NOTE ---
Subjective - Prog Note Date Prog Note Date: 08/21/17 Prog Note Time: 13:00 - Subjective Pt reports feeling: Improved (Pt says her stomach feels better) Current Medications - Current Medications Current Medications: Acetaminophen, albuterol, fentanyl, hydroxyzine, insulin, lisinopril, metoprolol ,NicoDerm, Zofran, oxycodone, pantoprazole, potassium chloride, Compazine, Phenergan, sodium chloride,Carafate Objective - Vital Signs/Intake & Output Reviewed Vital Signs: Yes Vital Signs: Vital Signs x48h Temp Pulse Pulse Resp BP Pulse Ox 08/21/17 16:00 73 160/98 H 08/21/17 15:00 70 15 111/93 H 98 08/21/17 14:00 69 15 117/79 98 08/21/17 13:00 66 13 152/102 H 96 08/21/17 12:00 66 17 138/66 H 98 08/21/17 11:00 63 16 127/84 H 97 08/21/17 10:00 36.7 C 83 31 H 184/99 H 99 08/21/17 09:20 70 16 08/21/17 09:00 83 18 143/84 H 100 Intake & Output: Intake & Output 08/18/17 08/19/17 08/20/17 08/21/17 23:59 23:59 23:59 23:59 Intake Total 5168.245 3223.718 Output Total 450 Balance 3381.298 6362.718 - Objective General Appearance: positive: No acute distress, Alert Eyes Bilateral: positive: Normal inspection, PERRL, EOMI, No lid inflammation, Conjunctivae nml, No scleral icterus ENT: positive: ENT inspection nml, Pharynx nml, No signs of dehydration Neck: positive: Nml inspection, Thyroid nml, No JVD, Trachea midline. negative : Thyromegaly Respiratory: positive: Chest non-tender, No respiratory distress, Breath sounds nml. negative: Wheezes, Rales, Rhonchi Cardiovascular: positive: Regular rate & rhythm, No murmur, No gallop Abdomen: positive: Non-tender, No organomegaly, Nml bowel sounds, No distention. negative: Guarding, Rebound Back: positive: Nml inspection. negative: CVA tenderness (R), CVA tenderness (L ) Skin: positive: Color nml, No rash, Warm, Dry, Cyanosis Extremities: positive: Non-tender, Full ROM, Nml appearance, No pedal edema Neurologic/Psychiatric: positive: Oriented x3, CN's nml (2-12), Motor nml, Sensation nml, Mood/affect nml - Lab Results Fish Bones: 08/21/17 12:10 08/21/17 05:10 Other Labs: Lab Results x24hrs 08/21/17 08/21/17 08/21/17 Range/Units 16:38 12:10 11:30 WBC (4.8-10.8) x10^3/uL RBC (4.20-5.40) 10^6/uL Hgb 11.4 L (12.0-16.0) g/dL Hct 34.0 L (37.0-47.0) % MCV (81.0-99.0) fL MCH (27.0-31.0) pg MCHC (32.0-36.0) g/dL RDW (12.0-15.0) % Plt Count (130-450) 10^3/uL MPV (7.9-10.8) fL Neut # (Auto) (1.5-6.6) 10^3/uL Lymph # (Auto) (1.5-3.5) 10^3/uL [place] # (Auto) (0.0-1.0) 10^3/uL Eos # (Auto) (0.0-0.7) 10^3/uL Baso # (Auto) (0.0-0.1) 10^3/uL Absolute Nucleated RBC x10^3/uL Nucleated RBC % /100WBC VBG pH (7.31-7.41) VBG pCO2 (41-51) mmHg VBG pO2 (25-47) mmHg VBG HCO3 (23-28) mmol/L VBG Total CO2 (24-29) mmol/L VBG O2 Saturation (60-80) % VBG Base Excess (-2 - +2) mmol/L Sodium (135-145) mmol/L Potassium (3.5-5.0) mmol/L Chloride (101-111) mmol/L Carbon Dioxide (21-32) mmol/L Anion Gap (6-13) BUN (6-20) mg/dL Creatinine (0.4-1.0) mg/dL Estimated GFR (MDRD) (>89) Glucose (70-100) mg/dL POC Whole Bld Glucose 233 H 174 H (70 - 100) mg/dL Glycated Hemoglobin (4.6-6.2) % Estim Average Glucose (70-100) Calcium (8.5-10.3) mg/dL Ionized Calcium Phosphorus (2.5-4.6) mg/dL Magnesium (1.7-2.8) mg/dL Total Bilirubin (0.2-1.0) mg/dL AST (10-42) IU/L ALT (10-60) IU/L Alkaline Phosphatase (42-121) IU/L Total Protein (6.7-8.2) g/dL Albumin (3.2-5.5) g/dL Globulin (2.1-4.2) g/dL Albumin/Globulin Ratio (1.0-2.2) TSH (0.34-5.60) uIU/mL Urine Color Urine Clarity (CLEAR) Urine pH (5.0-7.5) PH Ur Specific [place] (1.002-1.030) Urine Protein (NEGATIVE) mg/dL Urine Glucose (UA) (NEGATIVE) mg/dL Urine Ketones (NEGATIVE) mg/dL Urine Occult Blood (NEGATIVE) Urine Nitrite (NEGATIVE) Urine Bilirubin (NEGATIVE) Urine Urobilinogen (NORMAL) E.U./dL Ur Leukocyte Esterase (NEGATIVE) Urine RBC (0-5) /HPF Urine WBC (0-5) /HPF Urine WBC Clumps Ur Squamous Epith Cells (<= Few) Urine Bacteria (None Seen) /HPF Ur Microscopic Review Urine Culture Comments Serum Ketones (NEGATIVE) 08/21/17 08/21/17 08/21/17 Range/Units 09:35 07:35 07:00 WBC (4.8-10.8) x10^3/uL RBC (4.20-5.40) 10^6/uL Hgb 11.4 L (12.0-16.0) g/dL Hct 33.7 L (37.0-47.0) % MCV (81.0-99.0) fL MCH (27.0-31.0) pg MCHC (32.0-36.0) g/dL RDW (12.0-15.0) % Plt Count (130-450) 10^3/uL MPV (7.9-10.8) fL Neut # (Auto) (1.5-6.6) 10^3/uL Lymph # (Auto) (1.5-3.5) 10^3/uL [place] # (Auto) (0.0-1.0) 10^3/uL Eos # (Auto) (0.0-0.7) 10^3/uL Baso # (Auto) (0.0-0.1) 10^3/uL Absolute Nucleated RBC x10^3/uL Nucleated RBC % /100WBC VBG pH (7.31-7.41) VBG pCO2 (41-51) mmHg VBG pO2 (25-47) mmHg VBG HCO3 (23-28) mmol/L VBG Total CO2 (24-29) mmol/L VBG O2 Saturation (60-80) % VBG Base Excess (-2 - +2) mmol/L Sodium (135-145) mmol/L Potassium (3.5-5.0) mmol/L Chloride (101-111) mmol/L Carbon Dioxide (21-32) mmol/L Anion Gap (6-13) BUN (6-20) mg/dL Creatinine (0.4-1.0) mg/dL Estimated GFR (MDRD) (>89) Glucose (70-100) mg/dL POC Whole Bld Glucose 161 H (70 - 100) mg/dL Glycated Hemoglobin (4.6-6.2) % Estim Average Glucose (70-100) Calcium (8.5-10.3) mg/dL Ionized Calcium Phosphorus (2.5-4.6) mg/dL Magnesium (1.7-2.8) mg/dL Total Bilirubin (0.2-1.0) mg/dL AST (10-42) IU/L ALT (10-60) IU/L Alkaline Phosphatase (42-121) IU/L Total Protein (6.7-8.2) g/dL Albumin (3.2-5.5) g/dL Globulin (2.1-4.2) g/dL Albumin/Globulin Ratio (1.0-2.2) TSH (0.34-5.60) uIU/mL Urine Color Urine Clarity (CLEAR) Urine pH (5.0-7.5) PH Ur Specific [place] (1.002-1.030) Urine Protein (NEGATIVE) mg/dL Urine Glucose (UA) (NEGATIVE) mg/dL Urine Ketones (NEGATIVE) mg/dL Urine Occult Blood (NEGATIVE) Urine Nitrite (NEGATIVE) Urine Bilirubin (NEGATIVE) Urine Urobilinogen (NORMAL) E.U./dL Ur Leukocyte Esterase (NEGATIVE) Urine RBC (0-5) /HPF Urine WBC (0-5) /HPF Urine WBC Clumps Ur Squamous Epith Cells (<= Few) Urine Bacteria (None Seen) /HPF Ur Microscopic Review Urine Culture Comments Serum Ketones SMALL H (NEGATIVE) 08/21/17 08/21/17 08/21/17 Range/Units 05:10 05:10 03:18 WBC (4.8-10.8) x10^3/uL RBC (4.20-5.40) 10^6/uL Hgb (12.0-16.0) g/dL Hct (37.0-47.0) % MCV (81.0-99.0) fL MCH (27.0-31.0) pg MCHC (32.0-36.0) g/dL RDW (12.0-15.0) % Plt Count (130-450) 10^3/uL MPV (7.9-10.8) fL Neut # (Auto) (1.5-6.6) 10^3/uL Lymph # (Auto) (1.5-3.5) 10^3/uL [place] # (Auto) (0.0-1.0) 10^3/uL Eos # (Auto) (0.0-0.7) 10^3/uL Baso # (Auto) (0.0-0.1) 10^3/uL Absolute Nucleated RBC x10^3/uL Nucleated RBC % /100WBC VBG pH (7.31-7.41) VBG pCO2 (41-51) mmHg VBG pO2 (25-47) mmHg VBG HCO3 (23-28) mmol/L VBG Total CO2 (24-29) mmol/L VBG O2 Saturation (60-80) % VBG Base Excess (-2 - +2) mmol/L Sodium 135 (135-145) mmol/L Potassium 4.3 (3.5-5.0) mmol/L Chloride 107 (101-111) mmol/L Carbon Dioxide 17 L (21-32) mmol/L Anion Gap 11.0 (6-13) BUN 22 H (6-20) mg/dL Creatinine 1.0 (0.4-1.0) mg/dL Estimated GFR (MDRD) 61 L (>89) Glucose 142 H (70-100) mg/dL POC Whole Bld Glucose 145 H (70 - 100) mg/dL Glycated Hemoglobin (4.6-6.2) % Estim Average Glucose (70-100) Calcium 8.2 L (8.5-10.3) mg/dL Ionized Calcium YES Phosphorus 2.9 (2.5-4.6) mg/dL Magnesium 1.6 L (1.7-2.8) mg/dL Total Bilirubin 1.1 H (0.2-1.0) mg/dL AST 22 (10-42) IU/L ALT 18 (10-60) IU/L Alkaline Phosphatase 79 (42-121) IU/L Total Protein 5.8 L (6.7-8.2) g/dL Albumin 3.0 L (3.2-5.5) g/dL Globulin 2.8 (2.1-4.2) g/dL Albumin/Globulin Ratio 1.1 (1.0-2.2) TSH (0.34-5.60) uIU/mL Urine Color Urine Clarity (CLEAR) Urine pH (5.0-7.5) PH Ur Specific [place] (1.002-1.030) Urine Protein (NEGATIVE) mg/dL Urine Glucose (UA) (NEGATIVE) mg/dL Urine Ketones (NEGATIVE) mg/dL Urine Occult Blood (NEGATIVE) Urine Nitrite (NEGATIVE) Urine Bilirubin (NEGATIVE) Urine Urobilinogen (NORMAL) E.U./dL Ur Leukocyte Esterase (NEGATIVE) Urine RBC (0-5) /HPF Urine WBC (0-5) /HPF Urine WBC Clumps Ur Squamous Epith Cells (<= Few) Urine Bacteria (None Seen) /HPF Ur Microscopic Review Urine Culture Comments Serum Ketones (NEGATIVE) 08/21/17 08/21/17 08/21/17 Range/Units 02:11 00:54 00:48 WBC (4.8-10.8) x10^3/uL RBC (4.20-5.40) 10^6/uL Hgb (12.0-16.0) g/dL Hct (37.0-47.0) % MCV (81.0-99.0) fL MCH (27.0-31.0) pg MCHC (32.0-36.0) g/dL RDW (12.0-15.0) % Plt Count (130-450) 10^3/uL MPV (7.9-10.8) fL Neut # (Auto) (1.5-6.6) 10^3/uL Lymph # (Auto) (1.5-3.5) 10^3/uL [place] # (Auto) (0.0-1.0) 10^3/uL Eos # (Auto) (0.0-0.7) 10^3/uL Baso # (Auto) (0.0-0.1) 10^3/uL Absolute Nucleated RBC x10^3/uL Nucleated RBC % /100WBC VBG pH (7.31-7.41) VBG pCO2 (41-51) mmHg VBG pO2 (25-47) mmHg VBG HCO3 (23-28) mmol/L VBG Total CO2 (24-29) mmol/L VBG O2 Saturation (60-80) % VBG Base Excess (-2 - +2) mmol/L Sodium (135-145) mmol/L Potassium (3.5-5.0) mmol/L Chloride (101-111) mmol/L Carbon Dioxide (21-32) mmol/L Anion Gap (6-13) BUN (6-20) mg/dL Creatinine (0.4-1.0) mg/dL Estimated GFR (MDRD) (>89) Glucose (70-100) mg/dL POC Whole Bld Glucose 131 H 182 H (70 - 100) mg/dL Glycated Hemoglobin 8.7 H (4.6-6.2) % Estim Average Glucose 203 H (70-100) Calcium (8.5-10.3) mg/dL Ionized Calcium Phosphorus (2.5-4.6) mg/dL Magnesium (1.7-2.8) mg/dL Total Bilirubin (0.2-1.0) mg/dL AST (10-42) IU/L ALT (10-60) IU/L Alkaline Phosphatase (42-121) IU/L Total Protein (6.7-8.2) g/dL Albumin (3.2-5.5) g/dL Globulin (2.1-4.2) g/dL Albumin/Globulin Ratio (1.0-2.2) TSH (0.34-5.60) uIU/mL Urine Color Urine Clarity (CLEAR) Urine pH (5.0-7.5) PH Ur Specific [place] (1.002-1.030) Urine Protein (NEGATIVE) mg/dL Urine Glucose (UA) (NEGATIVE) mg/dL Urine Ketones (NEGATIVE) mg/dL Urine Occult Blood (NEGATIVE) Urine Nitrite (NEGATIVE) Urine Bilirubin (NEGATIVE) Urine Urobilinogen (NORMAL) E.U./dL Ur Leukocyte Esterase (NEGATIVE) Urine RBC (0-5) /HPF Urine WBC (0-5) /HPF Urine WBC Clumps Ur Squamous Epith Cells (<= Few) Urine Bacteria (None Seen) /HPF Ur Microscopic Review Urine Culture Comments Serum Ketones (NEGATIVE) 08/21/17 08/21/17 08/20/17 Range/Units 00:48 00:10 23:30 WBC (4.8-10.8) x10^3/uL RBC (4.20-5.40) 10^6/uL Hgb 11.8 L (12.0-16.0) g/dL Hct 37.5 (37.0-47.0) % MCV (81.0-99.0) fL MCH (27.0-31.0) pg MCHC (32.0-36.0) g/dL RDW (12.0-15.0) % Plt Count (130-450) 10^3/uL MPV (7.9-10.8) fL Neut # (Auto) (1.5-6.6) 10^3/uL Lymph # (Auto) (1.5-3.5) 10^3/uL [place] # (Auto) (0.0-1.0) 10^3/uL Eos # (Auto) (0.0-0.7) 10^3/uL Baso # (Auto) (0.0-0.1) 10^3/uL Absolute Nucleated RBC x10^3/uL Nucleated RBC % /100WBC VBG pH (7.31-7.41) VBG pCO2 (41-51) mmHg VBG pO2 (25-47) mmHg VBG HCO3 (23-28) mmol/L VBG Total CO2 (24-29) mmol/L VBG O2 Saturation (60-80) % VBG Base Excess (-2 - +2) mmol/L Sodium (135-145) mmol/L Potassium (3.5-5.0) mmol/L Chloride (101-111) mmol/L Carbon Dioxide (21-32) mmol/L Anion Gap (6-13) BUN (6-20) mg/dL Creatinine (0.4-1.0) mg/dL Estimated GFR (MDRD) (>89) Glucose (70-100) mg/dL POC Whole Bld Glucose 211 H (70 - 100) mg/dL Glycated Hemoglobin (4.6-6.2) % Estim Average Glucose (70-100) Calcium (8.5-10.3) mg/dL Ionized Calcium Phosphorus (2.5-4.6) mg/dL Magnesium (1.7-2.8) mg/dL Total Bilirubin (0.2-1.0) mg/dL AST (10-42) IU/L ALT (10-60) IU/L Alkaline Phosphatase (42-121) IU/L Total Protein (6.7-8.2) g/dL Albumin (3.2-5.5) g/dL Globulin (2.1-4.2) g/dL Albumin/Globulin Ratio (1.0-2.2) TSH 4.53 (0.34-5.60) uIU/mL Urine Color Urine Clarity (CLEAR) Urine pH (5.0-7.5) PH Ur Specific [place] (1.002-1.030) Urine Protein (NEGATIVE) mg/dL Urine Glucose (UA) (NEGATIVE) mg/dL Urine Ketones (NEGATIVE) mg/dL Urine Occult Blood (NEGATIVE) Urine Nitrite (NEGATIVE) Urine Bilirubin (NEGATIVE) Urine Urobilinogen (NORMAL) E.U./dL Ur Leukocyte Esterase (NEGATIVE) Urine RBC (0-5) /HPF Urine WBC (0-5) /HPF Urine WBC Clumps Ur Squamous Epith Cells (<= Few) Urine Bacteria (None Seen) /HPF Ur Microscopic Review Urine Culture Comments Serum Ketones (NEGATIVE) 08/20/17 08/20/17 08/20/17 Range/Units 23:30 22:54 21:46 WBC (4.8-10.8) x10^3/uL RBC (4.20-5.40) 10^6/uL Hgb (12.0-16.0) g/dL Hct (37.0-47.0) % MCV (81.0-99.0) fL MCH (27.0-31.0) pg MCHC (32.0-36.0) g/dL RDW (12.0-15.0) % Plt Count (130-450) 10^3/uL MPV (7.9-10.8) fL Neut # (Auto) (1.5-6.6) 10^3/uL Lymph # (Auto) (1.5-3.5) 10^3/uL [place] # (Auto) (0.0-1.0) 10^3/uL Eos # (Auto) (0.0-0.7) 10^3/uL Baso # (Auto) (0.0-0.1) 10^3/uL Absolute Nucleated RBC x10^3/uL Nucleated RBC % /100WBC VBG pH (7.31-7.41) VBG pCO2 (41-51) mmHg VBG pO2 (25-47) mmHg VBG HCO3 (23-28) mmol/L VBG Total CO2 (24-29) mmol/L VBG O2 Saturation (60-80) % VBG Base Excess (-2 - +2) mmol/L Sodium 137 (135-145) mmol/L Potassium 4.1 (3.5-5.0) mmol/L Chloride 105 (101-111) mmol/L Carbon Dioxide 19 L (21-32) mmol/L Anion Gap 13.0 (6-13) BUN 24 H (6-20) mg/dL Creatinine 1.2 H (0.4-1.0) mg/dL Estimated GFR (MDRD) 49 L (>89) Glucose 232 H (70-100) mg/dL POC Whole Bld Glucose 245 H 317 H (70 - 100) mg/dL Glycated Hemoglobin (4.6-6.2) % Estim Average Glucose (70-100) Calcium 8.8 (8.5-10.3) mg/dL Ionized Calcium Phosphorus (2.5-4.6) mg/dL Magnesium (1.7-2.8) mg/dL Total Bilirubin (0.2-1.0) mg/dL AST (10-42) IU/L ALT (10-60) IU/L Alkaline Phosphatase (42-121) IU/L Total Protein (6.7-8.2) g/dL Albumin (3.2-5.5) g/dL Globulin (2.1-4.2) g/dL Albumin/Globulin Ratio (1.0-2.2) TSH (0.34-5.60) uIU/mL Urine Color Urine Clarity (CLEAR) Urine pH (5.0-7.5) PH Ur Specific [place] (1.002-1.030) Urine Protein (NEGATIVE) mg/dL Urine Glucose (UA) (NEGATIVE) mg/dL Urine Ketones (NEGATIVE) mg/dL Urine Occult Blood (NEGATIVE) Urine Nitrite (NEGATIVE) Urine Bilirubin (NEGATIVE) Urine Urobilinogen (NORMAL) E.U./dL Ur Leukocyte Esterase (NEGATIVE) Urine RBC (0-5) /HPF Urine WBC (0-5) /HPF Urine WBC Clumps Ur Squamous Epith Cells (<= Few) Urine Bacteria (None Seen) /HPF Ur Microscopic Review Urine Culture Comments Serum Ketones MODERATE H (NEGATIVE) 08/20/17 08/20/17 08/20/17 Range/Units 21:40 20:52 20:30 WBC (4.8-10.8) x10^3/uL RBC (4.20-5.40) 10^6/uL Hgb (12.0-16.0) g/dL Hct (37.0-47.0) % MCV (81.0-99.0) fL MCH (27.0-31.0) pg MCHC (32.0-36.0) g/dL RDW (12.0-15.0) % Plt Count (130-450) 10^3/uL MPV (7.9-10.8) fL Neut # (Auto) (1.5-6.6) 10^3/uL Lymph # (Auto) (1.5-3.5) 10^3/uL [place] # (Auto) (0.0-1.0) 10^3/uL Eos # (Auto) (0.0-0.7) 10^3/uL Baso # (Auto) (0.0-0.1) 10^3/uL Absolute Nucleated RBC x10^3/uL Nucleated RBC % /100WBC VBG pH (7.31-7.41) VBG pCO2 (41-51) mmHg VBG pO2 (25-47) mmHg VBG HCO3 (23-28) mmol/L VBG Total CO2 (24-29) mmol/L VBG O2 Saturation (60-80) % VBG Base Excess (-2 - +2) mmol/L Sodium 134 L (135-145) mmol/L Potassium 4.0 (3.5-5.0) mmol/L Chloride 101 (101-111) mmol/L Carbon Dioxide 20 L (21-32) mmol/L Anion Gap 13.0 (6-13) BUN 26 H (6-20) mg/dL Creatinine 1.5 H (0.4-1.0) mg/dL Estimated GFR (MDRD) 38 L (>89) Glucose 297 H (70-100) mg/dL POC Whole Bld Glucose 363 H (70 - 100) mg/dL Glycated Hemoglobin (4.6-6.2) % Estim Average Glucose (70-100) Calcium 8.7 (8.5-10.3) mg/dL Ionized Calcium Phosphorus (2.5-4.6) mg/dL Magnesium (1.7-2.8) mg/dL Total Bilirubin (0.2-1.0) mg/dL AST (10-42) IU/L ALT (10-60) IU/L Alkaline Phosphatase (42-121) IU/L Total Protein (6.7-8.2) g/dL Albumin (3.2-5.5) g/dL Globulin (2.1-4.2) g/dL Albumin/Globulin Ratio (1.0-2.2) TSH (0.34-5.60) uIU/mL Urine Color YELLOW Urine Clarity CLEAR (CLEAR) Urine pH 5.5 (5.0-7.5) PH Ur Specific [place] 1.025 (1.002-1.030) Urine Protein NEGATIVE (NEGATIVE) mg/dL Urine Glucose (UA) 500 H (NEGATIVE) mg/dL Urine Ketones >=80 H (NEGATIVE) mg/dL Urine Occult Blood LARGE H (NEGATIVE) Urine Nitrite NEGATIVE (NEGATIVE) Urine Bilirubin NEGATIVE (NEGATIVE) Urine Urobilinogen 0.2 (NORMAL) (NORMAL) E.U./dL Ur Leukocyte Esterase NEGATIVE (NEGATIVE) Urine RBC 6-10 H (0-5) /HPF Urine WBC 11-25 H (0-5) /HPF Urine WBC Clumps PRESENT Ur Squamous Epith Cells MOD Squamous H (<= Few) Urine Bacteria Moderate H (None Seen) /HPF Ur Microscopic Review INDICATED Urine Culture Comments NOT INDICATED Serum Ketones (NEGATIVE) 08/20/17 08/20/17 08/20/17 Range/Units 19:50 19:50 19:50 WBC 9.2 (4.8-10.8) x10^3/uL RBC 3.71 L (4.20-5.40) 10^6/uL Hgb 11.7 L (12.0-16.0) g/dL Hct 36.6 L (37.0-47.0) % MCV 98.7 (81.0-99.0) fL MCH 31.6 H (27.0-31.0) pg MCHC 32.0 (32.0-36.0) g/dL RDW 15.7 H (12.0-15.0) % Plt Count 310 (130-450) 10^3/uL MPV 7.5 L (7.9-10.8) fL Neut # (Auto) 8.0 H (1.5-6.6) 10^3/uL Lymph # (Auto) 0.8 L (1.5-3.5) 10^3/uL [place] # (Auto) 0.3 (0.0-1.0) 10^3/uL Eos # (Auto) 0.0 (0.0-0.7) 10^3/uL Baso # (Auto) 0.0 (0.0-0.1) 10^3/uL Absolute Nucleated RBC 0.00 x10^3/uL Nucleated RBC % 0.0 /100WBC VBG pH 7.292 L (7.31-7.41) VBG pCO2 22.6 L (41-51) mmHg VBG pO2 146.1 H (25-47) mmHg VBG HCO3 10.7 L (23-28) mmol/L VBG Total CO2 11.4 L (24-29) mmol/L VBG O2 Saturation 98.8 H (60-80) % VBG Base Excess -13.9 L (-2 - +2) mmol/L Sodium (135-145) mmol/L Potassium (3.5-5.0) mmol/L Chloride (101-111) mmol/L Carbon Dioxide (21-32) mmol/L Anion Gap (6-13) BUN (6-20) mg/dL Creatinine (0.4-1.0) mg/dL Estimated GFR (MDRD) (>89) Glucose (70-100) mg/dL POC Whole Bld Glucose (70 - 100) mg/dL Glycated Hemoglobin 8.6 H (4.6-6.2) % Estim Average Glucose 200 H (70-100) Calcium (8.5-10.3) mg/dL Ionized Calcium Phosphorus (2.5-4.6) mg/dL Magnesium (1.7-2.8) mg/dL Total Bilirubin (0.2-1.0) mg/dL AST (10-42) IU/L ALT (10-60) IU/L Alkaline Phosphatase (42-121) IU/L Total Protein (6.7-8.2) g/dL Albumin (3.2-5.5) g/dL Globulin (2.1-4.2) g/dL Albumin/Globulin Ratio (1.0-2.2) TSH (0.34-5.60) uIU/mL Urine Color Urine Clarity (CLEAR) Urine pH (5.0-7.5) PH Ur Specific [place] (1.002-1.030) Urine Protein (NEGATIVE) mg/dL Urine Glucose (UA) (NEGATIVE) mg/dL Urine Ketones (NEGATIVE) mg/dL Urine Occult Blood (NEGATIVE) Urine Nitrite (NEGATIVE) Urine Bilirubin (NEGATIVE) Urine Urobilinogen (NORMAL) E.U./dL Ur Leukocyte Esterase (NEGATIVE) Urine RBC (0-5) /HPF Urine WBC (0-5) /HPF Urine WBC Clumps Ur Squamous Epith Cells (<= Few) Urine Bacteria (None Seen) /HPF Ur Microscopic Review Urine Culture Comments Serum Ketones (NEGATIVE) 08/20/17 08/20/17 Range/Units 19:50 19:44 WBC (4.8-10.8) x10^3/uL RBC (4.20-5.40) 10^6/uL Hgb (12.0-16.0) g/dL Hct (37.0-47.0) % MCV (81.0-99.0) fL MCH (27.0-31.0) pg MCHC (32.0-36.0) g/dL RDW (12.0-15.0) % Plt Count (130-450) 10^3/uL MPV (7.9-10.8) fL Neut # (Auto) (1.5-6.6) 10^3/uL Lymph # (Auto) (1.5-3.5) 10^3/uL [place] # (Auto) (0.0-1.0) 10^3/uL Eos # (Auto) (0.0-0.7) 10^3/uL Baso # (Auto) (0.0-0.1) 10^3/uL Absolute Nucleated RBC x10^3/uL Nucleated RBC % /100WBC VBG pH (7.31-7.41) VBG pCO2 (41-51) mmHg VBG pO2 (25-47) mmHg VBG HCO3 (23-28) mmol/L VBG Total CO2 (24-29) mmol/L VBG O2 Saturation (60-80) % VBG Base Excess (-2 - +2) mmol/L Sodium 131 L (135-145) mmol/L Potassium 4.2 (3.5-5.0) mmol/L Chloride 97 L (101-111) mmol/L Carbon Dioxide 13 L (21-32) mmol/L Anion Gap 22.0 H (6-13) BUN 25 H (6-20) mg/dL Creatinine 1.4 H (0.4-1.0) mg/dL Estimated GFR (MDRD) 41 L (>89) Glucose 382 H (70-100) mg/dL POC Whole Bld Glucose 336 H (70 - 100) mg/dL Glycated Hemoglobin (4.6-6.2) % Estim Average Glucose (70-100) Calcium 8.8 (8.5-10.3) mg/dL Ionized Calcium Phosphorus (2.5-4.6) mg/dL Magnesium (1.7-2.8) mg/dL Total Bilirubin (0.2-1.0) mg/dL AST (10-42) IU/L ALT (10-60) IU/L Alkaline Phosphatase (42-121) IU/L Total Protein (6.7-8.2) g/dL Albumin (3.2-5.5) g/dL Globulin (2.1-4.2) g/dL Albumin/Globulin Ratio (1.0-2.2) TSH (0.34-5.60) uIU/mL Urine Color Urine Clarity (CLEAR) Urine pH (5.0-7.5) PH Ur Specific [place] (1.002-1.030) Urine Protein (NEGATIVE) mg/dL Urine Glucose (UA) (NEGATIVE) mg/dL Urine Ketones (NEGATIVE) mg/dL Urine Occult Blood (NEGATIVE) Urine Nitrite (NEGATIVE) Urine Bilirubin (NEGATIVE) Urine Urobilinogen (NORMAL) E.U./dL Ur Leukocyte Esterase (NEGATIVE) Urine RBC (0-5) /HPF Urine WBC (0-5) /HPF Urine WBC Clumps Ur Squamous Epith Cells (<= Few) Urine Bacteria (None Seen) /HPF Ur Microscopic Review Urine Culture Comments Serum Ketones (NEGATIVE) ABX Reporting Has patient been on IV antibiotics over the past 48 hours?: No Assessment/Plan - Problem List (1) Diabetic ketoacidosis Impression: Resolving, resolved. The patient has been off of the insulin drip all day. She had small ketones in her blood this morning, will repeat tomorrow and expect there are not to be any ketones there at that time. Her anion gap has gone from 26-8 and her blood glucose is down in the 200s. Qualifiers: Diabetes mellitus type: type 1 Diabetes mellitus complication detail: without coma Qualified Code(s): E10.10 - Type 1 diabetes mellitus with ketoacidosis without coma (2) MARTITA (acute kidney injury) Impression: Resolving, creatinine was 1.4 on admission, down to 1.0 today. (3) Hematemesis Impression: Resolved, apparently. The patient denies any hematemesis for the last 14-16 hours. Qualifiers: Nausea presence: with nausea Qualified Code(s): K92.0 - Hematemesis (4) Chronic pain Impression: The patient has chronic left foot pain secondary to Charcot joint. She also has abdominal pain. This is been well managed with the use of IV fentanyl. Qualifiers: Chronic pain type: other chronic pain Qualified Code(s): G89.29 - Other chronic pain (5) Hypertension Impression: The patient is on lisinopril, will add hydrochlorothiazide as she is still hypertensive. Qualifiers: Hypertension type: essential hypertension Qualified Code(s): I10 - Essential (primary) hypertension (6) Hypothyroidism Impression: TSH is 4.53, continue current Synthroid dosing. Qualifiers: Hypothyroidism type: unspecified Qualified Code(s): E03.9 - Hypothyroidism , unspecified (7) Depression Impression: No new complaints of depression or anxiety. Continue Celexa. Qualifiers: Depression Type: unspecified Qualified Code(s): F32.9 - Major depressive disorder, single episode, unspecified (8) Tobacco abuse Impression: I started the patient on a nicotine patch today. She has been encouraged to quit smoking. (9) Asthma Impression: No evidence of acute exacerbation at this time, will continue to monitor we will treat if necessary. Qualifiers: Asthma severity: mild Asthma persistence: intermittent Asthma complication type: uncomplicated Qualified Code(s): J45.20 - Mild intermittent asthma, uncomplicated
[2017-08-21 18:03] LABS: HGB - HEMOGLOBIN 11.5 g/dL (12.0-16.0)
[2017-08-21] MEDS ORDERED: hydroCHLOROthiazide 12.5 MG CAPSULE PO ONE (18:21)
[2017-08-21] MEDS: hydroCHLOROthiazide 25 MG TABLET PO SCH (18:21)
[2017-08-21] MEDS: hydrOXYzine PAMOATE 25 MG CAPSULE PO PRN (18:42)
[2017-08-21] MEDS: METOCLOPRAMIDE 10 MG TABLET PO SCH (21:07)
[2017-08-22] MEDS: D5.45NS W/20 MEQ KCL 1,000 ML IV SCH (01:04)
[2017-08-22] MEDS ORDERED: NS W/20 MEQ KCL 1,000 ML IV SCH (02:00)
[2017-08-22] MEDS: oxyCODONE 5 MG TABLET PO PRN ×2 (02:01→06:48)
[2017-08-22] MEDS: hydrOXYzine PAMOATE 25 MG CAPSULE PO PRN (02:01)
[2017-08-22 04:51] LABS: BASOPHILS % (AUTO) 0.5 %; EOSINOPHILS # (AUTO) 0.3 10^3/uL (0.0-0.7); EOSINOPHILS % (AUTO) 3.3 %; HGB - HEMOGLOBIN 10.7 g/dL (12.0-16.0); LYMPHOCYTES # (AUTO) 3.1 10^3/uL (1.5-3.5); LYMPHOCYTES % (AUTO) 37.8 %; MEAN CORPUSCULAR HEMOGLOBIN 31.5 pg (27.0-31.0); MEAN CORPUSCULAR HGB CONC 32.9 g/dL (32.0-36.0); MEAN CORPUSCULAR VOLUME 95.8 fL (81.0-99.0); MEAN PLATELET VOLUME 7.3 fL (7.9-10.8); MONOCYTES # (AUTO) 0.6 10^3/uL (0.0-1.0); MONOCYTES % (AUTO) 7.1 %; NEUTROPHILS # (AUTO) 4.2 10^3/uL (1.5-6.6); NEUTROPHILS % (AUTO) 51.3 %; PLT - PLATELET COUNT 264 10^3/uL (130-450); RED BLOOD COUNT 3.39 10^6/uL (4.20-5.40); RED CELL DISTRIBUTION WIDTH 15.4 % (12.0-15.0); WHITE BLOOD COUNT 8.2 x10^3/uL (4.8-10.8)
[2017-08-22 04:55] LABS: KETONES, SERUM (ACETEST) SMALL (NEGATIVE)
[2017-08-22 05:02] LABS: ALBUMIN 2.7 g/dL (3.2-5.5); ALKALINE PHOSPHATASE 72 IU/L (42-121); ALT ALANINE AMINOTRANSFERASE 18 IU/L (10-60); AST ASPARTATE AMINOTRANSFERASE 26 IU/L (10-42); BILIRUBIN,TOTAL 0.7 mg/dL (0.2-1.0); BUN - BLOOD UREA NITROGEN 16 mg/dL (6-20); CALCIUM 8.5 mg/dL (8.5-10.3); CARBON DIOXIDE - CO2 23 mmol/L (21-32); CHLORIDE 106 mmol/L (101-111); CREATININE 0.9 mg/dL (0.4-1.0); GFR - MDRD 68 (>89); GLUCOSE 218 mg/dL (70-100); MAGNESIUM 1.6 mg/dL (1.7-2.8); PHOSPHORUS 2.3 mg/dL (2.5-4.6); SODIUM 135 mmol/L (135-145); TOTAL PROTEIN 5.3 g/dL (6.7-8.2)
[2017-08-22] MEDS ORDERED: POTASSIUM CHLORIDE 20 MEQ TABLET PO ONE ×2 (05:40→06:42)
[2017-08-22] MEDS ORDERED: MAGNESIUM OXIDE 400 MG TABLET PO ONE (06:42)
[2017-08-22] MEDS: MAGNESIUM OXIDE 400 MG TABLET PO SCH ×2 (07:22→14:28)
[2017-08-22] MEDS: NEUTRA-PHOS 250 MG TABLET PO SCH ×2 (08:24→11:02)
[2017-08-22] MEDS: SODIUM CHLORIDE FLUSH 0.9% 10 ML SYRINGE IVP SCH ×2 (08:24→08:28)
[2017-08-22] MEDS: INSULIN ASPART 300 UNIT/3 ML PEN SUBQ SCH ×2 (08:25→12:00)
[2017-08-22] MEDS: METOCLOPRAMIDE 10 MG TABLET PO SCH ×2 (08:25→11:01)
[2017-08-22] MEDS: hydroCHLOROthiazide 25 MG TABLET PO SCH (08:26)
[2017-08-22] MEDS: SUCRALFATE 1 GM/10 ML UDC PO SCH ×2 (08:26→11:04)
[2017-08-22] MEDS: LISINOPRIL 5 MG TABLET PO SCH (08:26)
[2017-08-22] MEDS: METOPROLOL TARTRATE 50 MG TABLET PO SCH (08:27)
[2017-08-22] MEDS: NICOTINE 21 MG PATCH TOP SCH (08:27)
[2017-08-22] MEDS: PANTOPRAZOLE 40 MG VIAL IVP SCH (08:27)
[2017-08-22] MEDS: fentaNYL 100 MCG/2 ML VIAL IVP PRN (10:22)
[2017-08-22 11:37] VITALS: BP 171/87
--- NOTE | 2017-08-22 11:44 | Discharge Plan ---
Discharge Plan Disposition: 01 Home, Self Care Condition: Serious Prescriptions: oxyCODONE [Roxicodone] 5 mg PO Q4HR PRN #30 tablet PRN Reason: Pain hydroCHLOROthiazide [Hydrodiuril] 25 mg PO DAILY #20 tablet Metoclopramide [Reglan] 10 mg PO ACHS #28 tablet Pantoprazole [Protonix inj] 40 mg IVP BID #20 vial Diet: Diabetic Activity Restrictions: Activity as Tolerated No Smoking: If you smoke, Please STOP! Call for help. Follow-up with: Nilo Street DO [Primary Care Provider] -
--- NOTE | 2017-08-22 12:17 | DISCHARGE SUMMARY ---
Discharge Summary Admit Date: 08/20/17 Discharge Date: 08/22/17 Discharging Provider: Lary Leal Primary Care Provider: Nilo Street Code Status: Attempt Resuscitation Condition at Discharge: Serious Discharge Disposition: Home, Self Care - DIAGNOSES Admission Diagnoses: 1. Diabetic ketoacidosis 2. Acute kidney injury 3. Hematemesis 4. Chronic pain 5. Hypertension 6. Hypothyroidism 7. Asthma 8. Depression 9. Tobacco abuse Discharge Diagnoses with Status of Each Condition: 1. Diabetic ketoacidosis -resolved almost immediately on admission. 2. Acute kidney injury- resolved, creatinine today is 0.9 3. Hematemesis- no episodes since admission. Most likely related to diabetic gastroparesis, the patient will be discharged on Reglan. 4. Chronic pain -Well-managed, patient given prescription for oxycodone on discharge. She will follow-up with her pain management doctor on Sunday. 5. Hypertension- Improved, continue lisinopril and HCTZ 6. Hypothyroidism -Continue home dosing, TSH level was 4.53 7. Asthma - Well-managed, no evidence of acute exacerbations during this hospitalization. Continue home care. 8. Depression - Well-managed, no new complaints during this hospitalization. Resume Celexa. 9. Tobacco abuse- The patient has been given a nicotine patch which has been helpful. I have encouraged her to continue smoking cessation efforts. - HPI History of Present Illness: From Dr Infante's H&P: Patient is a 42-year-old female with a past medical history significant for type 1 diabetes since the age of 9 on insulin, hypertension, hypothyroidism, peripheral neuropathy, Charcot joints left foot, asthma, diabetic retinopathy, diabetic gastroparesis and carpal tunnel syndrome who presented to the emergency department with a chief complaint of hematemesis. The patient states that over the last few weeks she has been under a great deal of stress. She states that she has been moving from an apartment to a house and this is created stress. Also she recently had her mother moved in with her who is elderly and drinks a lot of alcohol. She has been having to take care of her mother and deal with moving into a new home all during this time. She states that she was hospitalized at [facility] earlier this year in March/ April and at that time had had dark stools and hematemesis and was found to have a gastric ulcer and was placed on omeprazole and sucralfate which she has not been taking as was prescribed. The patient states that over the last 3-4 days she has had decreased appetite and really has not eaten much since 3 days ago. She states that yesterday she was at [employer] when she became nauseated and had to vomit during the service. She states that she came home and then had another episode of emesis. She states that shortly after this she began to develop abdominal pain she states it was relocated in the epigastric region and radiated up her chest and into her throat. She states that it was a gnawing sensation and was burning up into her chest and into her throat. She states that this abdominal pain continued to get worse through the night and so did her vomiting. After several episodes of vomiting she began to notice that her emesis became dark and then this morning was dark with blood streaks. She states that she tried to drink water but could not even keep that down. She states that once she noticed blood streaks in her vomit she decided to come to the emergency department as she was concerned she was having another ulcer and bleed. The patient also admits to polydipsia but denies any polyuria. She states that she was checking her blood sugars at home and they were not significantly more elevated than her baseline. The patient denies any fevers or chills. She also denies any diarrhea, black or bloody stools. Of note the patient also admits to a 40 pound weight loss over the last 6 months. Patient denies any headaches, blurred vision, runny nose, sore throat, nasal congestion, difficulty swallowing, chest pain, palpitations, orthopnea, PND, increased lower extremity swelling, shortness of air, cough, dysuria, hematuria , joint pain, muscle aches, back pain, neck stiffness, skin rashes, skin changes , hair loss, night sweats or any focal neurologic deficits. On presentation to the emergency department the patient was afebrile and vital signs were fairly normal with heart rate of 91 and a slightly elevated blood pressure. Patient was not in any respiratory distress. The patient underwent routine lab work which revealed a anion gap metabolic acidosis with a glucose of 405 and positive serum ketones with an anion gap of 26. Given these findings patient was in diabetic ketoacidosis and placed on an insulin drip in the emergency department. The patient's blood gas revealed a pH of 7.27 with a bicarb of 13. The patient's hemoglobin was stable at 12.6 and there was no stool guaiac performed in the emergency department. The patient was admitted to the intensive care unit for diabetic ketoacidosis. - HOSPITAL COURSE Hospital Course: The patient was admitted to the intensive care unit because of her diabetic ketoacidosis but was able to come off of the insulin drip within about an hour. She has remained comfortable and has not had any episodes of emesis since she was admitted. She has done well on Reglan and will continue this at home. - ALLERGIES Allergies/Adverse Reactions: Allergies Allergy/AdvReac Type Severity Reaction Status Date / Time morphine Allergy Hallucinati Verified 01/26/14 10:47 ons - MEDICATIONS Home Medications: Ambulatory Orders Medication Instructions Recorded Confirmed Insulin Glargine,Hum.rec.anlog 18 unit SQ DAILY 08/24/12 08/21/17 [Lantus] Albuterol [Ventolin Hfa] 2 puffs INH Q4H PRN 03/12/14 08/21/17 Metoprolol Tartrate [Lopressor] 100 mg PO DAILY 11/18/14 08/21/17 Insulin Glulisine [Apidra] 10 units SQ TIDWM 10/13/15 08/21/17 Levothyroxine [Synthroid] 75 mcg ORAL DAILY 10/13/15 08/21/17 Citalopram [CeleXA] 20 mg PO DAILY 08/20/17 08/21/17 Lisinopril 10 mg PO DAILY 08/20/17 08/21/17 Cyclobenzaprine HCl 10 mg PO TID PRN 08/21/17 08/21/17 Gabapentin 300 mg PO TID 08/21/17 08/21/17 Ipratropium/Albuterol Sulfate 3 ml IH QID 08/21/17 08/21/17 [Iprat-Albut 0.5-3(2.5) mg/3 ml] Metoclopramide [Reglan] 10 mg PO TID 08/21/17 08/21/17 Omeprazole 40 mg PO BID 08/21/17 08/21/17 Ondansetron [Ondansetron Odt] 4 mg PO Q6H PRN 08/21/17 08/21/17 Sucralfate 1 gm PO .QIDAC AND BEDTIME 08/21/17 08/21/17 Tramadol HCl 50 mg PO QID PRN 08/21/17 08/21/17 hydrOXYzine HCl [Hydroxyzine HCl] 50 mg PO Q6H PRN 08/21/17 08/21/17 Metoclopramide [Reglan] 10 mg PO ACHS #28 tablet 08/22/17 Nicotine 21 mg Patch [Nicoderm] 1 patch TOP DAILY patch 08/22/17 Pantoprazole [Protonix inj] 40 mg IVP BID #20 vial 08/22/17 hydroCHLOROthiazide [Hydrodiuril] 25 mg PO DAILY #20 tablet 08/22/17 oxyCODONE [Roxicodone] 5 mg PO Q4HR PRN #30 tablet 08/22/17 - PHYSICAL EXAM AT DISCHARGE General Appearance: positive: No acute distress, Alert Eyes Bilateral: positive: Normal inspection, PERRL, EOMI, No lid inflammation, Conjunctivae nml, No scleral icterus ENT: positive: ENT inspection nml, Pharynx nml, No signs of dehydration Neck: positive: Nml inspection, Thyroid nml, No JVD, Trachea midline. negative : Thyromegaly Respiratory: positive: Chest non-tender, No respiratory distress, Breath sounds nml. negative: Wheezes, Rales, Rhonchi Cardiovascular: positive: Regular rate & rhythm, No murmur, No gallop Peripheral Pulses: positive: 1+ Abdomen: positive: Non-tender, No organomegaly, Nml bowel sounds, No distention. negative: Guarding, Rebound Back: positive: Nml inspection. negative: CVA tenderness (R), CVA tenderness (L ) Skin: positive: Color nml, No rash, Warm, Dry. negative: Cyanosis Extremities: positive: Non-tender, Full ROM, Nml appearance, No pedal edema Neurologic/Psychiatric: positive: Oriented x3, CN's nml (2-12), Motor nml, Sensation nml, Mood/affect nml - LABS Result Diagrams: 08/22/17 04:20 08/22/17 04:20 - FOLLOW UP Follow Up: With Dr. Street and your pain management provider within a week. - TIME SPENT Time Spent in Discharge (Minutes): 40
== END 2017-08-22 13:40 | disposition home or self-care (01) | DRG 638 ==
LOC: ED 17:40 → ICU 19:36
PROVIDERS: ADMIT Internal Medicine; ATTEND Hospitalist
DX: E10.10 Type 1 diabetes mellitus with ketoacidosis without coma (principal); N17.9 Acute kidney failure, unspecified; K92.0 Hematemesis; E86.0 Dehydration; G89.29 Other chronic pain; I10 Essential (primary) hypertension; E03.9 Hypothyroidism, unspecified; F32.9 Major depressive disorder, single episode, unspecified; F41.9 Anxiety disorder, unspecified; E10.43 Type 1 diabetes mellitus with diabetic autonomic (poly)neuropathy; K31.84 Gastroparesis; E10.42 Type 1 diabetes mellitus with diabetic polyneuropathy; E10.610 Type 1 diabetes mellitus with diabetic neuropathic arthropathy; E10.319 Type 1 diabetes mellitus with unspecified diabetic retinopathy without macular edema; J45.20 Mild intermittent asthma, uncomplicated; K21.9 Gastro-esophageal reflux disease without esophagitis; F17.210 Nicotine dependence, cigarettes, uncomplicated; Z63.79 Other stressful life events affecting family and household; Z63.6 Dependent relative needing care at home; Z63.72 Alcoholism and drug addiction in family; Z79.891 Long term (current) use of opiate analgesic; Z79.899 Other long term (current) drug therapy; Z79.4 Long term (current) use of insulin; Z87.11 Personal history of peptic ulcer disease; Z91.14 Patient's other noncompliance with medication regimen
CPT/HCPCS: 36415; 80048; 80053; 81001; 81003; 82009; 82040; 82330; 82803; 83036; 83690; 83735; 84100; 84443; 85014; 85018; 85025; 85027; 87086; 87150; 96361; 96374; 96375; 99284; 99291; 99406

== ENCOUNTER 2017-10-07 06:32 | Inpatient (IN) | payer OTHER ==
[2017-10-07] MEDS ORDERED: ONDANSETRON 4 MG/2 ML VIAL IVP STA (06:41)
[2017-10-07] MEDS ORDERED: SODIUM CHLORIDE 0.9% 1,000 ML IV ONE ×2 (06:41→10:19)
[2017-10-07] MEDS ORDERED: ONDANSETRON ODT 4 MG TABLET TL STA (07:17)
--- NOTE | 2017-10-07 07:19 | ED Physician Documentation ---
PD HPI NVD - Stated complaint Stated Complaint: VOMITTING BLOOD/ABD PX - Chief complaint Chief Complaint: Abd Pain - History obtained from History obtained from: Patient - History of Present Illness Timing - onset: How many days ago (2) Timing - duration: Days (2) Timing - details: Gradual onset, Still present Associated symptoms: Abdominal pain, Hematemesis, Dizzy, Near syncope / syncope , Loss of appetite Contributing factors: Diabetes Improved by: Vomiting Similar symptoms before: Diagnosis (ketoacidosis) Recently seen: Clinic - Additonal information Additional information: 42 year old female with a history of type 1 diabetes since age 9 has had a urinary tract infection earlier in the week and was on some antibiotics per about 2 days ago she developed nausea and vomiting with abdominal and esophageal pain and bleeding. She feels that she is in DKA and her sugars are running high. She is under a lot of stress right now her mother is recently been hospitalized with COPD and her brother is in a bit of trouble as well. She had a cough and congestion last week and this has improved. She noticed her sugars running high yesterday. Review of Systems Constitutional: denies: Fever Eyes: denies: Decreased vision Ears: denies: Ear pain Nose: denies: Rhinorrhea / runny nose, Congestion Throat: reports: Sore throat Cardiac: reports: Chest pain / pressure. denies: Palpitations, Pedal edema, Calf pain Respiratory: denies: Dyspnea, Cough GI: reports: Abdominal Pain, Nausea, Vomiting, Hematemesis : reports: Frequency. denies: Dysuria Skin: denies: Rash Musculoskeletal: denies: Neck pain, Back pain, Extremity pain Neurologic: reports: Generalized weakness. denies: Focal weakness, Numbness PD PAST MEDICAL HISTORY - Past Medical History Past Medical History: Yes Cardiovascular: Hypertension Respiratory: Asthma, Pneumonia Neuro: Peripheral neuropathy Endocrine/Autoimmune: Type 1 diabetes, HyPOthyroidism GI: GERD, Other : None HEENT: Other Psych: Depression, Anxiety Musculoskeletal: Osteoarthritis, Osteoporosis, Chronic back pain Derm: None Other Past Medical History: Alcoholism - Past Surgical History Past Surgical History: No - Present Medications Home Medications: Ambulatory Orders Medication Instructions Recorded Confirmed Insulin Glargine,Hum.rec.anlog 15 unit SUBQ DAILY 08/24/12 10/07/17 [Lantus] Albuterol [Ventolin Hfa] 2 puffs INH Q4H PRN 03/12/14 10/07/17 Metoprolol Tartrate [Lopressor] 100 mg PO DAILY 11/18/14 10/07/17 Insulin Glulisine [Apidra] 0 - 10 units SQ TIDWM PRN 10/13/15 10/07/17 Levothyroxine [Synthroid] 75 mcg PO QDAC 10/13/15 10/07/17 Citalopram [CeleXA] 20 mg PO DAILY 08/20/17 10/07/17 Gabapentin 300 mg PO TID 08/21/17 10/07/17 Omeprazole 40 mg PO BID 08/21/17 10/07/17 Ondansetron [Ondansetron Odt] 4 mg PO Q6H PRN 08/21/17 10/07/17 Sucralfate 1 gm PO ACHS 08/21/17 10/07/17 hydrOXYzine HCl [Hydroxyzine HCl] 25 mg PO QID PRN 08/21/17 10/07/17 Metoclopramide [Reglan] 10 mg PO TID 10/07/17 10/07/17 Oxycodone HCl/Acetaminophen 1 tab PO TID PRN MDD MAX OF 3 10/07/17 10/07/17 [Oxycodone-Acetaminophen 5-325] TABS/DAY Pravastatin Sodium 20 mg PO QPM 10/07/17 10/07/17 - Allergies Allergies/Adverse Reactions: Allergies Allergy/AdvReac Type Severity Reaction Status Date / Time morphine Allergy Hallucinati Verified 01/26/14 10:47 ons - Social History Does the pt smoke?: Yes Smoking Status: Current every day smoker Does the pt drink ETOH?: Yes Does the pt have substance abuse?: No - Immunizations Immunizations are current?: Yes - POLST Patient has POLST: No POLST Status: Full Code PD ED PE NORMAL - Vitals Vital signs reviewed: Yes (tachy and diastolic hypotension) - General General: Alert and oriented X 3, Well developed/nourished, Other (dry heaves actively without blood. ) - HEENT HEENT: Atraumatic, PERRL, EOMI - Neck Neck: Supple, no meningeal sign - Cardiac Cardiac: No murmur, Other (tachy) - Respiratory Respiratory: No respiratory distress, Clear bilaterally - Abdomen Abdomen: Soft, Non tender - Back Back: No CVA TTP, No spinal TTP - Derm Derm: Normal color, Warm and dry, No rash - Neuro Neuro: Alert and oriented X 3, No motor deficit, No sensory deficit, Normal speech Eye Opening: Spontaneous Motor: Obeys Commands Verbal: Oriented GCS Score: 15 - Psych Psych: Normal mood, Normal affect Results - Vitals Vitals: Vital Signs - 24 hr 10/07/17 10/07/17 06:36 08:17 Temperature 36.0 C L Heart Rate 106 H 100 Respiratory 18 16 Rate Blood Pressure 109/59 L 111/61 O2 Saturation 94 100 Oxygen O2 Source Room air - Labs Labs: Laboratory Tests 10/07/17 10/07/17 10/07/17 07:30 07:30 07:30 WBC 14.9 H RBC 3.38 L Hgb 10.9 L Hct 33.2 L MCV 98.3 MCH 32.3 H MCHC 32.8 RDW 13.6 Plt Count 380 MPV 7.2 L Neut # (Auto) 12.7 H Lymph # (Auto) 1.2 L Hopkins # (Auto) 0.9 Eos # (Auto) 0.0 Baso # (Auto) 0.1 Absolute Nucleated RBC 0.00 Nucleated RBC % 0.0 PT 9.7 L INR 0.9 APTT 23.8 L VBG pH VBG pCO2 VBG pO2 VBG HCO3 VBG Total CO2 VBG O2 Saturation VBG Base Excess Sodium 121 L Potassium 4.4 Chloride 78 L* Carbon Dioxide 9 L* Anion Gap 34.0 H BUN 51 H Creatinine 2.0 H Estimated GFR (MDRD) 27 L Glucose 716 H* Calcium 8.4 L Total Bilirubin 2.8 H AST 18 ALT 18 Alkaline Phosphatase 105 Total Protein 7.3 Albumin 3.7 Globulin 3.6 Albumin/Globulin Ratio 1.0 Lipase 15 L Serum Ketones Blood Type Antibody Screen 10/07/17 10/07/17 10/07/17 07:30 07:30 08:12 WBC RBC Hgb Hct MCV MCH MCHC RDW Plt Count MPV Neut # (Auto) Lymph # (Auto) Hopkins # (Auto) Eos # (Auto) Baso # (Auto) Absolute Nucleated RBC Nucleated RBC % PT INR APTT VBG pH 7.233 L VBG pCO2 18.4 L VBG pO2 142.0 H VBG HCO3 7.6 L VBG Total CO2 8.1 L VBG O2 Saturation 98.2 H VBG Base Excess -17.7 L Sodium Potassium Chloride Carbon Dioxide Anion Gap BUN Creatinine Estimated GFR (MDRD) Glucose Calcium Total Bilirubin AST ALT Alkaline Phosphatase Total Protein Albumin Globulin Albumin/Globulin Ratio Lipase Serum Ketones MODERATE H Blood Type A POSITIVE Antibody Screen NEGATIVE Procedures - IVC sono (time) 0780 Bedside IVC sono: IVC measures (cm) (1.01), IVC collapsed c insp (cm) (complete) , Dehydration (est 1-1.5 liter deficit) PD MEDICAL DECISION MAKING - ED course Complexity details: reviewed old records, reviewed results, re-evaluated patient , considered differential, d/w patient ED course: 42 y/o female type one diabetic with a history of gastroparesis appears to have vomiting and ketoacidosis again. She is a difficult IV access and a line is started in her right ankle. She is started on an insulin drip at 6 units per hour and given a one liter bolus of saline. She is given protonix, carafate and mylanta as well as diluadid. Blood sugar is over 700. She is admitted to the CCU. - Sepsis Event Vital Signs: Vital Signs - 24 hr 10/07/17 10/07/17 06:36 08:17 Temperature 36.0 C L Heart Rate 106 H 100 Respiratory 18 16 Rate Blood Pressure 109/59 L 111/61 O2 Saturation 94 100 Oxygen O2 Source Room air Departure - Departure Disposition: [facility] DC/Xfer Clinical Impression: MARTITA (acute kidney injury) Diabetic ketoacidosis Qualifiers: Diabetes mellitus type: type 1 Diabetes mellitus complication detail: without coma Qualified Code(s): E10.10 - Type 1 diabetes mellitus with ketoacidosis without coma Discharge Date/Time: 10/07/17 08:55
[2017-10-07] MEDS ORDERED: INSULIN REGULAR HUMAN 100 UNIT in SODIUM CHLORIDE 0.9% 100ML 99 ML IV STA (07:41)
[2017-10-07 07:51] LABS: BASOPHILS # (AUTO) 0.1 10^3/uL (0.0-0.1); BASOPHILS % (AUTO) 0.4 %; EOSINOPHILS % (AUTO) 0.1 %; HGB - HEMOGLOBIN 10.9 g/dL (12.0-16.0); LYMPHOCYTES # (AUTO) 1.2 10^3/uL (1.5-3.5); LYMPHOCYTES % (AUTO) 8.3 %; MEAN CORPUSCULAR HEMOGLOBIN 32.3 pg (27.0-31.0); MEAN CORPUSCULAR HGB CONC 32.8 g/dL (32.0-36.0); MEAN CORPUSCULAR VOLUME 98.3 fL (81.0-99.0); MEAN PLATELET VOLUME 7.2 fL (7.9-10.8); MONOCYTES # (AUTO) 0.9 10^3/uL (0.0-1.0); MONOCYTES % (AUTO) 6.1 %; NEUTROPHILS # (AUTO) 12.7 10^3/uL (1.5-6.6); NEUTROPHILS % (AUTO) 85.1 %; PLT - PLATELET COUNT 380 10^3/uL (130-450); RED BLOOD COUNT 3.38 10^6/uL (4.20-5.40); RED CELL DISTRIBUTION WIDTH 13.6 % (12.0-15.0); WHITE BLOOD COUNT 14.9 x10^3/uL (4.8-10.8)
[2017-10-07] MEDS ORDERED: SUCRALFATE 1 GM/10 ML UDC PO STA (07:52)
[2017-10-07] MEDS ORDERED: HYDROmorphone 1 MG/ML CARPUJECT IVP STA (07:52)
[2017-10-07] MEDS ORDERED: MAG HYDROX/AL HYDROX/SIMETH 30 ML UDC PO STA (07:53)
[2017-10-07] MEDS ORDERED: PANTOPRAZOLE 40 MG VIAL IVP STA (07:54)
[2017-10-07 08:07] LABS: ALBUMIN 3.7 g/dL (3.2-5.5); BILIRUBIN,TOTAL 2.8 mg/dL (0.2-1.0); CALCIUM 8.4 mg/dL (8.5-10.3); TOTAL PROTEIN 7.3 g/dL (6.7-8.2)
[2017-10-07 08:11] LABS: INR 0.9 (0.8-1.2); PT - PROTHROMBIN TIME 9.7 secs (9.9-12.6)
[2017-10-07] MEDS ORDERED: SODIUM CHLORIDE 0.9% 100ML 100 ML IV ONE (08:11)
[2017-10-07 08:19] LABS: VBG PCO2 18.4 mmHg (41-51); VBG PH 7.233 (7.31-7.41); VBG TOTAL CO2 8.1 mmol/L (24-29)
[2017-10-07 08:20] LABS: VBG BASE EXCESS -17.7 mmol/L ([, -2 - +2])
[2017-10-07] MEDS ORDERED: ONDANSETRON 4 MG/2 ML VIAL ONE (10:10)
[2017-10-07] MEDS ORDERED: SODIUM CHLORIDE FLUSH 0.9% 10 ML SYRINGE ONE (10:11)
[2017-10-07] MEDS ORDERED: HYDROmorphone 1 MG/ML CARPUJECT ONE (10:32)
[2017-10-07] MEDS ORDERED: ACETAMINOPHEN 325 MG TABLET PO PRN (10:50)
[2017-10-07] MEDS ORDERED: PROCHLORPERAZINE 10 MG/2 ML VIAL IVP PRN (10:50)
[2017-10-07] MEDS ORDERED: HYDROmorphone 0.5 MG/0.5 ML SYRINGE IVP SCH (11:01)
[2017-10-07] MEDS ORDERED: MAG HYDROX/AL HYDROX/SIMETH 30 ML UDC PO PRN (11:14)
[2017-10-07] MEDS ORDERED: traMADol 50 MG TABLET PO PRN (11:17)
[2017-10-07] MEDS ORDERED: oxyCODONE 5 MG TABLET PO PRN (11:17)
[2017-10-07] MEDS ORDERED: CYCLOBENZAPRINE 10 MG TABLET PO PRN (11:17)
[2017-10-07] MEDS: NS W/20 MEQ KCL 1,000 ML IV SCH ×2 (11:35→21:36)
[2017-10-07 11:40] LABS: BASOPHILS # (AUTO) 0.1 10^3/uL (0.0-0.1); BASOPHILS % (AUTO) 0.5 %; HGB - HEMOGLOBIN 9.6 g/dL (12.0-16.0); LYMPHOCYTES # (AUTO) 2.3 10^3/uL (1.5-3.5); LYMPHOCYTES % (AUTO) 15.7 %; MEAN CORPUSCULAR HEMOGLOBIN 31.9 pg (27.0-31.0); MEAN CORPUSCULAR VOLUME 96.5 fL (81.0-99.0); MEAN PLATELET VOLUME 6.7 fL (7.9-10.8); MONOCYTES # (AUTO) 1.1 10^3/uL (0.0-1.0); MONOCYTES % (AUTO) 7.6 %; NEUTROPHILS # (AUTO) 11.3 10^3/uL (1.5-6.6); NEUTROPHILS % (AUTO) 76.2 %; PLT - PLATELET COUNT 345 10^3/uL (130-450); RED BLOOD COUNT 3.01 10^6/uL (4.20-5.40); RED CELL DISTRIBUTION WIDTH 13.6 % (12.0-15.0); WHITE BLOOD COUNT 14.9 x10^3/uL (4.8-10.8)
[2017-10-07 11:42] LABS: VBG PCO2 31.4 mmHg (41-51); VBG PH 7.349 (7.31-7.41)
--- NOTE | 2017-10-07 11:42 | XRAY Report ---
Procedure Date: 10/07/2017 Accession Number: [id number] / [id number] Procedure: XR - Chest for Line Placement CPT Code: FULL RESULT: EXAM: CHEST RADIOGRAPHY EXAM DATE: 10/07/2017 10:45 AM. CLINICAL HISTORY: Right IJ. COMPARISON: 05/10/2015. TECHNIQUE: 1 view. FINDINGS: Lungs/Pleura: Lower lung volumes and hypoventilatory changes. Stable atelectasis or scarring at the right lung base in the setting of lower lung volumes. No pneumothorax. No effusion. Mediastinum: Within exam limitations, the cardiomediastinal contour is normal. Other: Right IJ catheter with tip in the SVC. IMPRESSION: 1. Right IJ catheter with tip in the SVC. 2. Low lung volumes and hypoventilatory changes RADIA
[2017-10-07 11:43] LABS: VBG BASE EXCESS -7.7 mmol/L ([, -2 - +2]); VBG PO2 109.1 mmHg (25-47); VBG TOTAL CO2 17.9 mmol/L (24-29)
[2017-10-07] MEDS: CITALOPRAM 10 MG TABLET PO SCH (11:47)
[2017-10-07] MEDS: SUCRALFATE 1 GM/10 ML UDC PO SCH ×3 (11:48→21:35)
[2017-10-07] MEDS: NICOTINE 21 MG PATCH TOP SCH (11:48)
[2017-10-07] MEDS: METOCLOPRAMIDE 10 MG/2 ML VIAL IVP SCH ×3 (11:48→21:35)
[2017-10-07 11:49] LABS: CALCIUM 7.5 mg/dL (8.5-10.3); CREATININE 1.6 mg/dL (0.4-1.0); MAGNESIUM 1.6 mg/dL (1.7-2.8)
[2017-10-07] MEDS: HYDROmorphone 1 MG/ML CARPUJECT IVP PRN ×3 (11:56→21:42)
[2017-10-07] MEDS: SODIUM CHLORIDE FLUSH 0.9% 10 ML SYRINGE IVP PRN ×3 (13:38→23:22)
[2017-10-07 13:47] LABS: KETONES, SERUM (ACETEST) MODERATE (NEGATIVE)
[2017-10-07 13:51] LABS: MUDS CUTOFF CONCENTRATIONS CUTOFF CONC BELOW:
[2017-10-07 13:53] LABS: BUN - BLOOD UREA NITROGEN 44 mg/dL (6-20); CALCIUM 7.6 mg/dL (8.5-10.3); CARBON DIOXIDE - CO2 21 mmol/L (21-32); CHLORIDE 95 mmol/L (101-111); CREATININE 1.6 mg/dL (0.4-1.0); GFR - MDRD 35 (>89); GLUCOSE 275 mg/dL (70-100); MAGNESIUM 1.7 mg/dL (1.7-2.8); SODIUM 129 mmol/L (135-145)
[2017-10-07 13:54] LABS: GLUCOSE, URINE (UA) >=1000 mg/dL (NEGATIVE); KETONES,URINE (UA) >=80 mg/dL (NEGATIVE); LEUKOCYTE ESTERASE, URINE NEGATIVE (NEGATIVE); NITRITE,URINE NEGATIVE (NEGATIVE); OCCULT BLOOD,URINE NEGATIVE (NEGATIVE); PROTEIN,URINE NEGATIVE (NEGATIVE); UROBILINOGEN,URINE 0.2 (NORMAL) E.U./dL (NORMAL)
[2017-10-07 14:02] LABS: BILIRUBIN,URINE NEGATIVE (NEGATIVE); CLARITY,URINE CLEAR (CLEAR); ICTOTEST,URINE NEGATIVE
[2017-10-07 14:03] LABS: HCG UR QUAL NEGATIVE
[2017-10-07 14:09] LABS: AMPHETAMINE SCREEN,URINE NEGATIVE (NEGATIVE); BENZODIAZEPINES SCREEN, URINE NEGATIVE (NEGATIVE); COCAINE SCREEN URINE NEGATIVE (NEGATIVE); METHADONE SCREEN, URINE NEGATIVE (NEGATIVE); METHAMPHETAMINES SCREEN, URINE NEGATIVE (NEGATIVE); OPIATE SCREEN, URINE NEGATIVE (NEGATIVE); OXYCODONE SCREEN, URINE NEGATIVE (NEGATIVE); PROPOXYPHENE SCREEN, URINE NEGATIVE (NEGATIVE); TRICYCLIC ANTIDEPRESSANT,URINE NEGATIVE (NEGATIVE)
[2017-10-07] MEDS: GABAPENTIN 300 MG CAPSULE PO SCH ×2 (14:22→21:35)
[2017-10-07 15:34] LABS: KETONES, SERUM (ACETEST) SMALL (NEGATIVE)
[2017-10-07 15:35] LABS: BUN - BLOOD UREA NITROGEN 46 mg/dL (6-20); CALCIUM 7.7 mg/dL (8.5-10.3); CARBON DIOXIDE - CO2 17 mmol/L (21-32); CHLORIDE 96 mmol/L (101-111); CREATININE 1.7 mg/dL (0.4-1.0); GFR - MDRD 33 (>89); GLUCOSE 324 mg/dL (70-100); MAGNESIUM 1.8 mg/dL (1.7-2.8); SODIUM 130 mmol/L (135-145)
[2017-10-07] MEDS: cefTRIAXone 1 GM in SODIUM CHLORIDE 0.9% MINIBAG 100 ML IV SCH (16:25)
[2017-10-07] MEDS: SODIUM CHLORIDE FLUSH 0.9% 10 ML SYRINGE IVP SCH (17:16)
[2017-10-07 17:31] LABS: KETONES, SERUM (ACETEST) SMALL (NEGATIVE)
[2017-10-07 17:36] LABS: GLUCOSE 260 mg/dL (70-100)
[2017-10-07 19:23] LABS: KETONES, SERUM (ACETEST) SMALL (NEGATIVE)
[2017-10-07 19:25] LABS: GLUCOSE 223 mg/dL (70-100)
[2017-10-07] MEDS ORDERED: FAMOTIDINE 20 MG TABLET PO SCH (21:00)
[2017-10-07 21:27] LABS: KETONES, SERUM (ACETEST) SMALL (NEGATIVE)
[2017-10-07 21:29] LABS: GLUCOSE 146 mg/dL (70-100)
[2017-10-07] MEDS: PANTOPRAZOLE 40 MG VIAL IVP SCH (21:42)
[2017-10-07] MEDS: INSULIN GLARGINE 300 UNIT/3 ML PEN SUBQ SCH (22:20)
[2017-10-07] MEDS ORDERED: HYDROXYZINE HCL 25 MG PO PRN (22:37)
[2017-10-07] MEDS ORDERED: hydrOXYzine PAMOATE 25 MG CAPSULE PO PRN (22:43)
[2017-10-07] MEDS ORDERED: hydrOXYzine PAMOATE 25 MG CAPSULE PO SCH (22:44)
[2017-10-07] MEDS: hydrOXYzine PAMOATE 25 MG CAPSULE PO PRN (22:50)
[2017-10-07] MEDS: TEMAZEPAM 15 MG CAPSULE PO PRN (22:50)
--- NOTE | 2017-10-08 00:02 | HISTORY & PHYSICAL EXAMINATION ---
DATE OF SERVICE: 10/07/2017 Physician: Cassandra Gaitan MD HISTORY OF PRESENT ILLNESS: This is a 42-year-old white female with history of type 1 diabetes that she has had since the age of 9. She states that as an adult, she has been very "sloppy" in following her glucoses and having good glucose control. Over the past 6 years, however, she has become more serious, does fingersticks, follows a diet and has medical followup. The patient has had prior episodes of DKA. The patient also has a history of diabetic gastroparesis, probable upper gastrointestinal bleed about 7 months ago, asthma , chronic back pain. The patient presents with a urinary tract infection that she was on antibiotics for 1 week previously, she went to see her doctor with persistent symptoms and was ordered to have another 1 week course of the same antibiotic. She started to develop asthmatic symptoms including a productive cough yesterday. She also developed nausea and vomiting and was unable to keep any liquids or foods down. She reports that she had "coffee ground emesis." She presented to the emergency room early this morning and was found to be in DKA with hyponatremia, a pH of 7.2, complaining of heartburn and she is being placed in the ICU for DKA protocol. PAST MEDICAL HISTORY: Type 1 diabetes, prior DKA, diabetic gastroparesis for which she takes Reglan, Charcot foot of the left since November 2016, chronic back pain, asthma on inhalers p.r.n. ALLERGIES: MORPHINE MEDICATIONS 1. Insulin, both long-acting and short-acting 2. Reglan t.i.d. 3. Tylenol with codeine p.r.n. pain. 4. Hydroxyzine p.r.n. 5. Ondansetron p.r.n. nausea. 6. Celexa 20 mg daily. 7. Synthroid 75 mcg daily. 8. Omeprazole 40 mg b.i.d. 9. Gabapentin 300 mg t.i.d. 10. Pravastatin 20 mg every night. 11. Sucralfate 1 gram before meals and at bedtime. 12. Albuterol inhaler p.r.n. 13. Metoprolol tartrate 100 mg p.o. daily. REVIEW OF SYSTEMS: A comprehensive review of systems was performed and the pertinent positives are above, the rest are negative. FAMILY HISTORY: There is no history of diabetes on either side of the family. SOCIAL HISTORY: She is . She has no children. She works in the medical area. SOCIAL HISTORY: She is a smoker of less than half pack a day and is currently trying to quit, she drinks rare alcohol and uses marijuana for pain control. PHYSICAL EXAMINATION GENERAL: White female who is in no distress. She was initially obtunded in the emergency room, but is awakening with hydration. VITAL SIGNS: Blood pressure 107/55, pulse of 97 and in sinus rhythm, respiratory rate 25, now decreased down to 17. Room air saturation 98%, afebrile. HEENT: Unremarkable, except dry oral mucosa. NECK: Without JVD. No carotid bruits. LUNGS: Clear. HEART: Heart sounds normal. No audible murmur. ABDOMEN: Soft, decreased bowel sounds, nontender. No guarding or rebound. No organomegaly. EXTREMITIES: Left foot is swollen from the forefoot down. There is no redness or tenderness. She has no edema. She has good dorsalis pedis pulses bilaterally. NEUROLOGIC: Intact. LABORATORY DATA: Blood pH 7.23. CBC 14.9 with left shift, hemoglobin 10.9, MCV of 98, platelet count normal at 380. INR normal at 0.9. Urinalysis showed high glucose and high ketones, HCG was negative. Chemistry showed sodium 121, potassium 4.4, carbon dioxide 9, anion gap 34, BUN 51, creatinine 2.0, glucose 716, bilirubin 2.8, normal AST and ALT and alkaline phosphatase. Troponin not detectable. Lipase normal. Serum ketones were moderate. Her "MUDS" toxicology screen is entirely negative. EKG: Normal sinus rhythm with short WI interval and LVH voltage. CHEST X-RAY: No active pulmonary disease, and she has a CVP placed in the [facility] side. IMPRESSION/DIAGNOSES 1. Diabetic ketoacidosis with pseudo hyponatremia from very high serum glucose. 2. MARTITA, presumed volume depletion causing ATN. 3. Gastroparesis. 4. Asthmatic bronchitis. 5. Urinary tract infection, continued symptoms of dysuria. 6. Upper gastrointestinal bleed suggested by coffee-ground emesis 7. Chronic back pain. 8. Charcot's joint in a diabetic. PLAN: Place the patient in the ICU on telemetry. Begin a DKA protocol including insulin drip, saline for rehydration, institute frequent glucose checks, serum ketones checks. Start clear liquids and continue this without advancing. Obtain a surgical consult for an EGD and n.p.o. after midnight status. Continue with the medications for the gastroparesis including Reglan scheduled. Use Mylanta prn and Carafate scheduled for treating the heartburn. Continue with her beta azael, pain medication, and Gabapentin for her Charcot joint and any neuropathy pain. Continue with treatment for the UTI and the bronchitis after obtaining blood cultures, sputum culture, urine culture. Ceftriaxone IV will be started. Continue to follow her daily labs including CMP, magnesium, CBC daily. CODE STATUS: FULL CODE. DEEP VENOUS THROMBOSIS PROPHYLAXIS: SCDs, no Lovenox in her case because of the potential upper GI bleed. ATTESTATION: The patient is expected to be discharged or transferred to another facility within 96 hours: Yes. TD: 10/07/2017 18:23 [email or web address]
[2017-10-08] MEDS: SODIUM CHLORIDE FLUSH 0.9% 10 ML SYRINGE IVP SCH ×3 (01:07→18:05)
[2017-10-08] MEDS: SODIUM CHLORIDE FLUSH 0.9% 10 ML SYRINGE IVP PRN ×2 (01:07→20:23)
[2017-10-08] MEDS ORDERED: INSULIN REGULAR HUMAN 100 UNIT in SODIUM CHLORIDE 0.9% 100ML 99 ML IV SCH (02:00)
[2017-10-08 03:33] LABS: KETONES, SERUM (ACETEST) SMALL (NEGATIVE)
[2017-10-08 03:41] LABS: AMYLASE 27 U/L (28-100); LIPASE 14 U/L (22-51); PHOSPHORUS 1.8 mg/dL (2.5-4.6)
[2017-10-08] MEDS: NS W/20 MEQ KCL 1,000 ML IV SCH ×4 (04:19→20:51)
[2017-10-08] MEDS: HYDROmorphone 1 MG/ML CARPUJECT IVP PRN ×6 (05:21→22:30)
[2017-10-08 05:51] LABS: BASOPHILS # (AUTO) 0.1 10^3/uL (0.0-0.1); BASOPHILS % (AUTO) 0.5 %; EOSINOPHILS # (AUTO) 0.1 10^3/uL (0.0-0.7); EOSINOPHILS % (AUTO) 0.9 %; HGB - HEMOGLOBIN 8.9 g/dL (12.0-16.0); LYMPHOCYTES % (AUTO) 26.7 %; MEAN CORPUSCULAR HEMOGLOBIN 31.9 pg (27.0-31.0); MEAN CORPUSCULAR HGB CONC 32.7 g/dL (32.0-36.0); MEAN CORPUSCULAR VOLUME 97.5 fL (81.0-99.0); MEAN PLATELET VOLUME 6.6 fL (7.9-10.8); MONOCYTES # (AUTO) 0.7 10^3/uL (0.0-1.0); MONOCYTES % (AUTO) 6.1 %; NEUTROPHILS # (AUTO) 7.4 10^3/uL (1.5-6.6); NEUTROPHILS % (AUTO) 65.8 %; PLT - PLATELET COUNT 297 10^3/uL (130-450); RED BLOOD COUNT 2.78 10^6/uL (4.20-5.40); RED CELL DISTRIBUTION WIDTH 13.7 % (12.0-15.0); WHITE BLOOD COUNT 11.3 x10^3/uL (4.8-10.8)
[2017-10-08 06:01] LABS: ALBUMIN 2.5 g/dL (3.2-5.5); ALKALINE PHOSPHATASE 67 IU/L (42-121); ALT ALANINE AMINOTRANSFERASE 11 IU/L (10-60); AST ASPARTATE AMINOTRANSFERASE 10 IU/L (10-42); BILIRUBIN,TOTAL 0.7 mg/dL (0.2-1.0); BUN - BLOOD UREA NITROGEN 34 mg/dL (6-20); CALCIUM 7.6 mg/dL (8.5-10.3); CARBON DIOXIDE - CO2 21 mmol/L (21-32); CHLORIDE 106 mmol/L (101-111); CREATININE 1.1 mg/dL (0.4-1.0); GFR - MDRD 54 (>89); GLUCOSE 249 mg/dL (70-100); SODIUM 134 mmol/L (135-145); TOTAL PROTEIN 5.1 g/dL (6.7-8.2)
[2017-10-08 06:04] LABS: MAGNESIUM 1.7 mg/dL (1.7-2.8)
[2017-10-08] MEDS: METOCLOPRAMIDE 10 MG/2 ML VIAL IVP SCH ×3 (06:12→21:55)
[2017-10-08] MEDS: GABAPENTIN 300 MG CAPSULE PO SCH ×3 (06:12→21:55)
[2017-10-08 06:21] LABS: KETONES, SERUM (ACETEST) SMALL (NEGATIVE)
[2017-10-08] MEDS ORDERED: MAGNESIUM SULFATE 2 GRAM 2 GM/50 ML BAG IV ONE (06:21)
[2017-10-08] MEDS ORDERED: POTASSIUM PHOSPHATE 15 MMOL in SODIUM CHLORIDE 0.9% 250 ML IV ONE ×2 (06:21→09:00)
[2017-10-08 06:22] LABS: VBG PH 7.295 (7.31-7.41)
[2017-10-08 07:42] LABS: HB2 TOTAL 9.2 g/dL; HEMOGLOBIN A1C 0.85 g/dL; HEMOGLOBIN A1C % 10.6 % (4.6-6.2)
[2017-10-08] MEDS: METOPROLOL TARTRATE 50 MG TABLET PO SCH (08:18)
[2017-10-08] MEDS: CITALOPRAM 10 MG TABLET PO SCH (08:19)
[2017-10-08] MEDS: NICOTINE 21 MG PATCH TOP SCH (08:19)
[2017-10-08] MEDS: SUCRALFATE 1 GM/10 ML UDC PO SCH ×4 (08:20→21:55)
[2017-10-08] MEDS: INSULIN ASPART 300 UNIT/3 ML PEN SUBQ SCH ×4 (08:21→20:50)
[2017-10-08] MEDS: PANTOPRAZOLE 40 MG VIAL IVP SCH ×2 (08:25→20:23)
[2017-10-08] MEDS: LEVOTHYROXINE 25 MCG TABLET PO SCH (08:32)
[2017-10-08] MEDS: NEUTRA-PHOS 250 MG TABLET PO SCH ×2 (09:11→11:07)
[2017-10-08] MEDS: ALBUTEROL NEB 2.5 MG/3 ML INH PRN (11:15)
--- NOTE | 2017-10-08 11:27 | PROVIDER PROGRESS NOTE ---
Assessment/Plan - Problem List (1) Diabetic ketoacidosis Qualifiers: Diabetes mellitus type: type 1 Diabetes mellitus complication detail: without coma Qualified Code(s): E10.10 - Type 1 diabetes mellitus with ketoacidosis without coma Assessment/Plan: Her A1c was 10. She has had DM for >30 years and states she has had many visits for DM management. Today, she still has serum ketones small, but anion gap and bicarb have normalized. Her Insulin drip was stopped and she was started on Lantus and sliding scale Insulin, eating (clear liquid diet) Continue monitoring daily BMP, serum ketones every 2 hours until cleared. Continue iv hydration. (2) Dehydration Assessment/Plan: Improved clinically with no dry oral mucosa and improved BUN/creat. Continue iv saline hydration until tomorrow. (3) Upper respiratory infection Assessment/Plan: Sputum sample has many WBCs and GP cocci. Emoiric Ceftriaxone was started. Will add better GPC coverage. Await ID and MICs of GP bacteria. (4) UTI (urinary tract infection) Assessment/Plan: The patient had been on 1 week of Nitrofuantoin for outpt treatment of her UTI and still felt that she had a UTI on admission yesterday. Will continue Ceftriaxone iv Await urine culture bacteria identification results. (5) Hematemesis Qualifiers: Assessment/Plan: Pt still has heartburn but no further N/V or coffee ground emesis. Continue iv Protonix. Will stop Carafate after today for EGD visualization of gastric mucosa. Awaiting EGD. Dr alvarez wanted to wait until tomorrow since the patient still has positive serum ketones and mild hyponatremia. (6) Diabetic gastroparesis Assessment/Plan: Pt still has heartburn., but no further N/V. Continue Reglan scheduled dosing and prn Compazine. (7) Anemia Assessment/Plan: Will check Iron stores, B12 and Folate. Will start Ferrous Gluconate since there was coffee ground emesis suggesting Fe- deficiency anemia. Monitor daily CBC. (8) Charcot's joint arthropathy in type 1 diabetes mellitus Assessment/Plan: Pt has no redness and will need outpt management of the L foot Charcot's joint. - Current Meds Current Meds: Current Medications Generic Name Dose Route Start Last Admin Trade Name Freq PRN Reason Stop Dose Admin Albuterol 2.5 mg 10/07/17 11:32 10/08/17 11:15 INH 2.5 mg RTQ4H PRN Administration Wheezing Citalopram Hydrobromide 20 mg 10/07/17 12:00 10/08/17 08:19 Celexa PO 20 mg DAILY FIDENCIO Administration Gabapentin 300 mg 10/07/17 14:00 10/08/17 06:12 Neurontin PO 300 mg TID FIDENCIO Administration Hydromorphone HCl 1 mg 10/07/17 10:50 10/08/17 11:07 Dilaudid Inj Carp IVP 1 mg Q2HR PRN Administration Pain 8 to 10 Hydroxyzine Pamoate 25 mg 10/07/17 22:44 10/07/17 22:50 Vistaril PO 25 mg QID PRN Administration Itching Potassium Chloride/Sodium Chloride 1,000 mls @ 150 mls/hr 10/07/17 11:00 11:10 Normal Saline 0.9% W/20 Meq Kcl IV 150 mls/hr .Q6H40M FIDENCIO Administration Ceftriaxone Sodium 1 gm/ 100 mls @ 200 mls/hr 10/07/17 16:00 10/07/17 16:55 Sodium Chloride IV Infused Q24H FIDENCIO Infusion Insulin Aspart 1 - 9 unit 10/08/17 08:00 10/08/17 08:21 Novolog SUBQ 5 unit 0800,1200,1700,2100 FIDENCIO Administration Protocol Insulin Glargine 15 unit 10/07/17 21:51 10/07/17 22:20 Lantus Solostar SUBQ 15 unit QPM FIDENCIO Administration Levothyroxine Sodium 75 mcg 10/08/17 09:00 10/08/17 08:32 Synthroid PO 75 mcg DAILY FIDENCIO Administration Metoclopramide HCl 5 mg 10/07/17 12:00 10/08/17 06:12 Reglan Inj IVP 5 mg Q8HR FIDENCIO Administration Metoprolol Tartrate 100 mg 10/08/17 09:00 10/08/17 08:18 Lopressor PO 100 mg DAILY FIDENCIO Administration Nicotine 1 patch 10/07/17 12:00 10/08/17 08:19 Nicoderm TOP 1 patch DAILY FIDENCIO Administration Oxycodone HCl 5 mg 10/07/17 11:17 10/07/17 20:22 Roxicodone PO 5 mg Q4HR PRN Administration PAIN Pantoprazole Sodium 40 mg 10/07/17 21:00 10/08/17 08:25 Protonix IVP 40 mg BID FIDENCIO Administration Sodium Chloride 10 ml 10/07/17 17:00 10/08/17 08:25 Normal Saline Flush 0.9% IVP 10 ml 0100,0900,1700 FIDENCIO Administration Sodium Chloride 10 ml 10/07/17 10:50 10/08/17 01:07 Normal Saline Flush 0.9% IVP 10 ml PRN PRN Administration NEEDED PER PROVIDER ORDERS Sucralfate 1 gm 10/07/17 12:00 10/08/17 11:11 Carafate PO 10/08/17 23:00 1 gm 0700,1100,1600,2200 FIDENCIO Administration Temazepam 15 mg 10/07/17 10:50 10/07/17 22:50 Restoril PO 15 mg QPM PRN Administration Insomnia - Lab Result Fish Bone Diagrams: 10/08/17 05:08 10/08/17 05:08 - Additional Planning My Orders: My Active Orders 10/07/17 10:50 Activity Orders [RC] Routine Daily Weight [RC] 0600 IO [RC] Q1HR Initiate Bowel Care Protocol [RC] QSHIFT Initiate ICU Electrolyte Prot. [RC] .protocol Initiate Line Care Protocol [RC] .protocol Initiate Personal Care Protoco [RC] .protocol Vital Signs [RC] Q1HR Acetaminophen [Tylenol] 650 mg PO Q4HR PRN HYDROmorphone INJ CARP [Dilaudid Inj Carp] 1 mg IVP Q2HR PRN Prochlorperazine Inj [Compazine Inj] 10 mg IVP Q6HR PRN Sodium Chloride Flush 0.9% [Normal Saline Flush 0.9%] 10 ml IVP PRN PRN Temazepam [Restoril] 15 mg PO QPM PRN Code Status [OTHERS] Routine Condition of Patient [OTHERS] Routine DVT Prophylaxis [OTHERS] Routine 10/07/17 10:52 Oral Care - Nursing [RC] Routine Telemetry- [RC] Routine 10/07/17 10:57 Oxygen Therapy [RC] .PRN SCDs [RC] QSHIFT 10/07/17 11:00 Ns W/20 Meq KCl [Normal Saline 0.9% W/20 Meq KCl] 1,000 ml IV 150 mls/hr 10/07/17 11:08 Blood Glucose POC [RC] 0800,1200,1700,2100 Initiate Hypoglycemia Protocol [RC] .protocol Notify Provider - Specific Ins [RC] PRN 10/07/17 11:14 Mag Hydrox/Al Hydrox/Simeth [Mylanta Plus] 30 ml PO Q4HR PRN 10/07/17 11:17 Cyclobenzaprine [Flexeril] 10 mg PO TID PRN oxyCODONE [Roxicodone] 5 mg PO Q4HR PRN traMADol [Ultram] 50 mg PO QID PRN 10/07/17 11:30 CULTURE, BLOOD #1 [RM] Urgent 10/07/17 11:32 Albuterol 2.5 mg INH RTQ4H PRN 10/07/17 12:00 Citalopram [CeleXA] 20 mg PO DAILY Metoclopramide Inj [Reglan Inj] 5 mg IVP Q8HR Nicotine 21 mg Patch [Nicoderm] 1 patch TOP DAILY Sucralfate [Carafate] 1 gm PO 0700,1100,1600,2200 10/07/17 12:17 CULTURE, BLOOD #1 [RM] Urgent 10/07/17 14:00 Gabapentin [Neurontin] 300 mg PO TID 10/07/17 16:00 cefTRIAXone [Rocephin] 1 gm Sodium Chloride 0.9% Minibag [Normal Saline 0.9% Minibag] 100 ml IV Q24H 10/07/17 17:00 Sodium Chloride Flush 0.9% [Normal Saline Flush 0.9%] 10 ml IVP 0100,0900, 1700 10/07/17 17:30 CUL, RESPIRATORY [RM] Routine 10/07/17 21:00 Pantoprazole [Protonix] 40 mg IVP BID 10/07/17 22:44 hydrOXYzine PAMOATE [Vistaril] 25 mg PO QID PRN 10/08/17 09:00 Levothyroxine [Synthroid] 75 mcg PO DAILY Metoprolol Tartrate [Lopressor] 100 mg PO DAILY 10/08/17 11:08 KETONES, SERUM (ACETEST) [CHEM] Timed 10/08/17 11:20 Nebulizer [Nebulizer/MDI Tx.] [RC] .PRN 07/23/18 Breakfast Clear Liquid Diet [DIET] 10/09/17 05:00 CBC - COMP BLD CT W/AUTO DIFF [HEME] DAILYLAB MAGNESIUM [CHEM] DAILYLAB 10/10/17 05:00 CBC - COMP BLD CT W/AUTO DIFF [HEME] DAILYLAB MAGNESIUM [CHEM] DAILYLAB Subjective - Subjective Patient Reports: Feeling Better, Resting Comfortably, Fatigue Objective Vital Signs: Vital Signs - 24 hr 10/07/17 10/07/17 10/07/17 11:36 12:00 14:00 Temperature Heart Rate [ 95 96 97 Brachial] Respiratory 16 15 25 H Rate Blood Pressure Blood Pressure 111/63 94/52 L 107/55 L [Left Brachial artery] O2 Saturation 97 96 98 10/07/17 10/07/17 10/07/17 15:00 16:00 17:00 Temperature 36.8 C Heart Rate [ 94 93 92 Brachial] Respiratory 20 17 17 Rate Blood Pressure Blood Pressure 101/53 L 95/52 L 99/60 [Left Brachial artery] O2 Saturation 98 98 98 10/07/17 10/07/17 10/07/17 18:00 19:00 20:12 Temperature 36.7 C Heart Rate [ 97 97 96 Brachial] Respiratory 17 22 20 Rate Blood Pressure Blood Pressure 114/56 L 120/71 102/71 [Left Brachial artery] O2 Saturation 98 98 100 10/07/17 10/07/17 10/07/17 21:00 22:00 23:00 Temperature Heart Rate [ 98 92 99 Brachial] Respiratory 17 17 20 Rate Blood Pressure Blood Pressure 123/76 105/59 L 121/71 [Left Brachial artery] O2 Saturation 10/08/17 10/08/17 10/08/17 00:06 01:00 02:00 Temperature 37.1 C Heart Rate [ 82 78 77 Brachial] Respiratory 13 14 14 Rate Blood Pressure Blood Pressure 104/55 L 106/60 114/69 [Left Brachial artery] O2 Saturation 100 10/08/17 10/08/17 10/08/17 03:00 04:00 04:22 Temperature 36.5 C Heart Rate [ 82 74 73 Brachial] Respiratory 14 14 14 Rate Blood Pressure Blood Pressure 115/63 109/72 [Left Brachial artery] O2 Saturation 95 10/08/17 10/08/17 10/08/17 05:00 06:00 07:00 Temperature Heart Rate [ 81 84 82 Brachial] Respiratory 14 13 13 Rate Blood Pressure Blood Pressure 103/69 119/72 97/63 [Left Brachial artery] O2 Saturation 10/08/17 10/08/17 10/08/17 08:13 08:18 09:00 Temperature Heart Rate [ 90 87 Brachial] Respiratory 14 12 Rate Blood Pressure 167/98 H Blood Pressure 97/63 125/78 [Left Brachial artery] O2 Saturation 98 10/08/17 10:00 Temperature Heart Rate [ 68 Brachial] Respiratory 12 Rate Blood Pressure Blood Pressure 114/83 H [Left Brachial artery] O2 Saturation Oxygen O2 Source Room air I&O (Last 24 Hrs): Intake and Output Totals x24h 10/06/17 10/07/17 10/08/17 23:59 23:59 23:59 Intake Total 3051.2 3740.0 Output Total 850 750 Balance 2201.2 2990.0 General: Alert, Oriented x3 HEENT: Mucous membr. moist/pink Neck: Supple Neuro: Non Focal Cardiovascular: Regular rate, No murmurs Respiratory: No respiratory distress, Breath sounds nml, Other (R CVP line in place.) Abdomen: Soft Extremities: Other (L foot swollen, no change from yesterday) - Results Results: Laboratory Results WBC 11.3 x10^3/uL (4.8-10.8) H 10/08/17 05:08 RBC 2.78 10^6/uL (4.20-5.40) L 10/08/17 05:08 Hgb 8.9 g/dL (12.0-16.0) L 10/08/17 05:08 Hct 27.1 % (37.0-47.0) L 10/08/17 05:08 MCV 97.5 fL (81.0-99.0) 10/08/17 05:08 MCH 31.9 pg (27.0-31.0) H 10/08/17 05:08 MCHC 32.7 g/dL (32.0-36.0) 10/08/17 05:08 RDW 13.7 % (12.0-15.0) 10/08/17 05:08 Plt Count 297 10^3/uL (130-450) 10/08/17 05:08 MPV 6.6 fL (7.9-10.8) L 10/08/17 05:08 Neut # (Auto) 7.4 10^3/uL (1.5-6.6) H 10/08/17 05:08 Lymph # (Auto) 3.0 10^3/uL (1.5-3.5) 10/08/17 05:08 [place] # (Auto) 0.7 10^3/uL (0.0-1.0) 10/08/17 05:08 Eos # (Auto) 0.1 10^3/uL (0.0-0.7) 10/08/17 05:08 Baso # (Auto) 0.1 10^3/uL (0.0-0.1) 10/08/17 05:08 Absolute Nucleated RBC 0.00 x10^3/uL 10/08/17 05:08 Nucleated RBC % 0.0 /100WBC 10/08/17 05:08 PT 9.7 secs (9.9-12.6) L 10/07/17 07:30 INR 0.9 (0.8-1.2) 10/07/17 07:30 APTT 23.8 secs (24.9-33.3) L 10/07/17 07:30 VBG pH 7.295 (7.31-7.41) L 10/08/17 05:08 VBG pCO2 31.4 mmHg (41-51) L 10/07/17 11:30 VBG pO2 109.1 mmHg (25-47) H 10/07/17 11:30 VBG HCO3 16.9 mmol/L (23-28) L 10/07/17 11:30 VBG Total CO2 17.9 mmol/L (24-29) L 10/07/17 11:30 VBG O2 Saturation 97.6 % (60-80) H 10/07/17 11:30 VBG Base Excess -7.7 mmol/L (-2 - +2) L 10/07/17 11:30 Ionized Calcium 1.11 mmol/L (1.15-1.33) L 10/08/17 05:08 Sodium 134 mmol/L (135-145) L 10/08/17 05:08 Potassium 4.0 mmol/L (3.5-5.0) 10/08/17 05:08 Chloride 106 mmol/L (101-111) 10/08/17 05:08 Carbon Dioxide 21 mmol/L (21-32) 10/08/17 05:08 Anion Gap 7.0 (6-13) 10/08/17 05:08 BUN 34 mg/dL (6-20) H 10/08/17 05:08 Creatinine 1.1 mg/dL (0.4-1.0) H 10/08/17 05:08 Estimated GFR (MDRD) 54 (>89) L 10/08/17 05:08 Glucose 249 mg/dL (70-100) H 10/08/17 05:08 POC Whole Bld Glucose 337 mg/dL (70 - 100) H 10/08/17 10:36 Glycated Hemoglobin 10.6 % (4.6-6.2) H 10/08/17 05:08 Estim Average Glucose 258 (70-100) H 10/08/17 05:08 Calcium 7.6 mg/dL (8.5-10.3) L 10/08/17 05:08 Ionized Calcium YES 10/08/17 05:08 Phosphorus 1.8 mg/dL (2.5-4.6) L 10/08/17 03:10 Magnesium 1.7 mg/dL (1.7-2.8) 10/08/17 05:08 Total Bilirubin 0.7 mg/dL (0.2-1.0) 10/08/17 05:08 AST 10 IU/L (10-42) 10/08/17 05:08 ALT 11 IU/L (10-60) 10/08/17 05:08 Alkaline Phosphatase 67 IU/L (42-121) 10/08/17 05:08 Troponin I < 0.04 ng/mL (<0.49) 10/08/17 05:08 Total Protein 5.1 g/dL (6.7-8.2) L 10/08/17 05:08 Albumin 2.5 g/dL (3.2-5.5) L 10/08/17 05:08 Globulin 2.6 g/dL (2.1-4.2) 10/08/17 05:08 Albumin/Globulin Ratio 1.0 (1.0-2.2) 10/08/17 05:08 Triglycerides 124 mg/dL (-149) 10/08/17 03:10 Amylase 27 U/L (28-100) L 10/08/17 03:10 Lipase 14 U/L (22-51) L 10/08/17 03:10 Urine Color YELLOW 10/07/17 12:45 Urine Clarity CLEAR (CLEAR) 10/07/17 12:45 Urine pH 6.0 PH (5.0-7.5) 10/07/17 12:45 Ur Specific [place] 1.020 (1.002-1.030) 10/07/17 12:45 Urine Protein NEGATIVE mg/dL (NEGATIVE) 10/07/17 12:45 Urine Glucose (UA) >=1000 mg/dL (NEGATIVE) H 10/07/17 12:45 Urine Ketones >=80 mg/dL (NEGATIVE) H 10/07/17 12:45 Urine Occult Blood NEGATIVE (NEGATIVE) 10/07/17 12:45 Urine Nitrite NEGATIVE (NEGATIVE) 10/07/17 12:45 Urine Bilirubin NEGATIVE (NEGATIVE) 10/07/17 12:45 Urine Urobilinogen 0.2 (NORMAL) E.U./dL (NORMAL) 10/07/17 12:45 Ur Leukocyte Esterase NEGATIVE (NEGATIVE) 10/07/17 12:45 Ur Microscopic Review NOT INDICATED 10/07/17 12:45 Urine Culture Comments NOT INDICATED 10/07/17 12:45 Urine HCG, Qual NEGATIVE 10/07/17 12:45 Urine Opiates Screen NEGATIVE (NEGATIVE) 10/07/17 12:45 Ur Oxycodone Screen NEGATIVE (NEGATIVE) 10/07/17 12:45 Urine Methadone Screen NEGATIVE (NEGATIVE) 10/07/17 12:45 Ur Propoxyphene Screen NEGATIVE (NEGATIVE) 10/07/17 12:45 Ur Barbiturates Screen NEGATIVE (NEGATIVE) 10/07/17 12:45 Ur Tricyclics Screen NEGATIVE (NEGATIVE) 10/07/17 12:45 Ur Phencyclidine Scrn NEGATIVE (NEGATIVE) 10/07/17 12:45 Ur Amphetamine Screen NEGATIVE (NEGATIVE) 10/07/17 12:45 U Methamphetamines Scrn NEGATIVE (NEGATIVE) 10/07/17 12:45 U Benzodiazepines Scrn NEGATIVE (NEGATIVE) 10/07/17 12:45 Urine Cocaine Screen NEGATIVE (NEGATIVE) 10/07/17 12:45 U Cannabinoids Screen NEGATIVE (NEGATIVE) 10/07/17 12:45 Serum Ketones SMALL (NEGATIVE) H 10/08/17 09:15 Blood Type A POSITIVE 10/07/17 07:30 Blood Type Recheck A POSITIVE 10/07/17 11:30 Antibody Screen NEGATIVE 10/07/17 07:30 ABX Reporting Has patient been on IV antibiotics over the past 48 hours?: Yes
[2017-10-08] MEDS: AZITHROMYCIN INJ 500 MG in SODIUM CHLORIDE 0.9% 250 ML IV SCH (14:33)
[2017-10-08] MEDS: cefTRIAXone 1 GM in SODIUM CHLORIDE 0.9% MINIBAG 100 ML IV SCH (16:00)
[2017-10-08] MEDS: FERROUS SULFATE 300 MG/5 ML UDC PO SCH (18:04)
[2017-10-08] MEDS: INSULIN GLARGINE 300 UNIT/3 ML PEN SUBQ SCH (20:50)
[2017-10-08] MEDS ORDERED: INSULIN GLARGINE 300 UNIT/3 ML PEN SUBQ SCH (21:00)
[2017-10-08] MEDS: hydrOXYzine PAMOATE 25 MG CAPSULE PO PRN (23:04)
[2017-10-08] MEDS: TEMAZEPAM 15 MG CAPSULE PO PRN (23:04)
[2017-10-09] MEDS: SODIUM CHLORIDE FLUSH 0.9% 10 ML SYRINGE IVP SCH ×2 (00:23→07:52)
[2017-10-09] MEDS: NS W/20 MEQ KCL 1,000 ML IV SCH ×2 (03:32→10:34)
[2017-10-09] MEDS: HYDROmorphone 1 MG/ML CARPUJECT IVP PRN ×3 (05:25→10:34)
[2017-10-09] MEDS: SODIUM CHLORIDE FLUSH 0.9% 10 ML SYRINGE IVP PRN ×2 (05:29→06:41)
[2017-10-09 06:37] LABS: BASOPHILS % (AUTO) 0.4 %; EOSINOPHILS # (AUTO) 0.2 10^3/uL (0.0-0.7); HGB - HEMOGLOBIN 8.7 g/dL (12.0-16.0); LYMPHOCYTES # (AUTO) 3.9 10^3/uL (1.5-3.5); LYMPHOCYTES % (AUTO) 40.4 %; MEAN CORPUSCULAR HEMOGLOBIN 33.1 pg (27.0-31.0); MEAN CORPUSCULAR HGB CONC 34.4 g/dL (32.0-36.0); MEAN CORPUSCULAR VOLUME 96.2 fL (81.0-99.0); MEAN PLATELET VOLUME 6.9 fL (7.9-10.8); MONOCYTES # (AUTO) 0.8 10^3/uL (0.0-1.0); MONOCYTES % (AUTO) 8.5 %; NEUTROPHILS # (AUTO) 4.6 10^3/uL (1.5-6.6); NEUTROPHILS % (AUTO) 48.7 %; PLT - PLATELET COUNT 264 10^3/uL (130-450); RED BLOOD COUNT 2.63 10^6/uL (4.20-5.40); RED CELL DISTRIBUTION WIDTH 13.7 % (12.0-15.0); WHITE BLOOD COUNT 9.5 x10^3/uL (4.8-10.8)
[2017-10-09] MEDS: GABAPENTIN 300 MG CAPSULE PO SCH ×2 (06:37→14:29)
[2017-10-09] MEDS: METOCLOPRAMIDE 10 MG/2 ML VIAL IVP SCH ×2 (06:37→14:29)
[2017-10-09 06:50] LABS: ALBUMIN 2.8 g/dL (3.2-5.5); ALKALINE PHOSPHATASE 70 IU/L (42-121); ALT ALANINE AMINOTRANSFERASE 11 IU/L (10-60); AST ASPARTATE AMINOTRANSFERASE 19 IU/L (10-42); BILIRUBIN,TOTAL 0.3 mg/dL (0.2-1.0); BUN - BLOOD UREA NITROGEN 19 mg/dL (6-20); CARBON DIOXIDE - CO2 22 mmol/L (21-32); CHLORIDE 109 mmol/L (101-111); CREATININE 0.8 mg/dL (0.4-1.0); GFR - MDRD 78 (>89); GLUCOSE 66 mg/dL (70-100); SODIUM 136 mmol/L (135-145); TOTAL PROTEIN 5.6 g/dL (6.7-8.2)
[2017-10-09 07:15] LABS: VBG PH 7.306 (7.31-7.41)
[2017-10-09] MEDS: INSULIN ASPART 300 UNIT/3 ML PEN SUBQ SCH ×2 (07:51→11:01)
[2017-10-09] MEDS ORDERED: POLYETHYLENE GLYCOL 3350 17 GM PACKET PO SCH (09:00)
--- NOTE | 2017-10-09 10:13 | CONSULTATION NOTE ---
Referring Provider Consult Date: 10/08/17 Chief Complaint - Chief Complaint Chief Complaint: hematemesis History of Present Illness - History of Present Illness HPI Comment/Other: This is a 42-year-old female who presented to the emergency department 2 days ago in [facility]. She is a type I diabetic who is poorly controlled. She additionally was complaining of nausea and vomiting for a week prior to admission to the emergency department and noted that she experienced hematemesis associated with GERD and epigastric pain. Upon my evaluation of the patient she states that she has had similar episodes 2-3 times in the past recently she was seen at [facility] approximately 1 year ago but she is unsure of the endoscopy results. She is prescribed omeprazole 20 mg twice daily and Carafate 1 mg 3-5 times daily, however, she admits to being non-compliant with taking these. She had an episode of hematemesis in the ER on admission but since her hospitalization has not had any nausea or vomiting. History - Past Medical History Cardiovascular: reports: Hypertension Respiratory: reports: Asthma, Pneumonia Neuro: reports: Peripheral neuropathy Endocrine/Autoimmune: reports: Type 1 diabetes, HyPOthyroidism GI: reports: GERD, Other : reports: None HEENT: reports: Other Psych: reports: Depression, Anxiety Musculoskeletal: reports: Osteoarthritis, Osteoporosis, Chronic back pain Derm: reports: None MRSA Hx?: No Other Past Medical History: Alcoholism - Family & Social History Family History: Mother: Hypertension Family History Comment/Other: Patient denies any family history of diabetes, heart disease or cancer. Social History Notes: Patient lives in [place], [place]. She just recently moved from an apartment in [place] down to a house in [place]. She is living on [address] property. She recently had her mother moved in with her and has been under a lot of stress having to take care of her mother as well as the move. 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 She states that she has smoked most of her life but quit recently and now is back to smoking about 5 cigarettes a day. Prior to that she states that she smoked anywhere from half a pack to a pack a day for more than 20 years. She states that she does also drink coffee daily. She was previously a drinker and would drink daily but states she cut back in about a week ago she stopped drinking completely. She states that she does smoke marijuana on a regular basis but denies any other illicit drug use. The patient has never had any children. - POLST Patient has POLST: No POLST Status: Full Code Meds/Allgy - Home Medications Home Medications: Ambulatory Orders Medication Instructions Recorded Confirmed Insulin Glargine,Hum.rec.anlog 15 unit SUBQ DAILY 08/24/12 10/07/17 [Lantus] Albuterol [Ventolin Hfa] 2 puffs INH Q4H PRN 03/12/14 10/07/17 Metoprolol Tartrate [Lopressor] 100 mg PO DAILY 11/18/14 10/07/17 Insulin Glulisine [Apidra] 0 - 10 units SQ TIDWM PRN 10/13/15 10/07/17 Levothyroxine [Synthroid] 75 mcg PO QDAC 10/13/15 10/07/17 Citalopram [CeleXA] 20 mg PO DAILY 08/20/17 10/07/17 Gabapentin 300 mg PO TID 08/21/17 10/07/17 Omeprazole 40 mg PO BID 08/21/17 10/07/17 Ondansetron [Ondansetron Odt] 4 mg PO Q6H PRN 08/21/17 10/07/17 Sucralfate 1 gm PO ACHS 08/21/17 10/07/17 hydrOXYzine HCl [Hydroxyzine HCl] 25 mg PO QID PRN 08/21/17 10/07/17 Metoclopramide [Reglan] 10 mg PO TID 10/07/17 10/07/17 Oxycodone HCl/Acetaminophen 1 tab PO TID PRN MDD MAX OF 3 10/07/17 10/07/17 [Oxycodone-Acetaminophen 5-325] TABS/DAY Pravastatin Sodium 20 mg PO QPM 10/07/17 10/07/17 - Allergies Allergies/Adverse Reactions: Allergies Allergy/AdvReac Type Severity Reaction Status Date / Time morphine Allergy Hallucinati Verified 01/26/14 10:47 ons Exam - Vital Signs Reviewed Vital Signs: Yes Vital Signs: Vital Signs x48h Temp Pulse Resp BP Pulse Ox 10/09/17 08:23 36.4 C L 77 16 121/72 97 10/09/17 05:00 36.9 C 82 18 149/87 H 97 - Physical Exam General Appearance: positive: No acute distress Eyes Bilateral: positive: Normal inspection Respiratory: positive: No respiratory distress Cardiovascular: positive: Regular rate & rhythm Abdomen: positive: Non-tender, No distention Extremities: positive: No pedal edema Neurologic/Psychiatric: positive: Oriented x3 Conclusion/Plan - Diagnosis Diagnosis: hematemasis - Plan Plan: The differential diagnosis includes peptic ulcer disease, gastritis, duodenitis. We will proceed with EGD to confirm diagnosis. The patient should continue a PPI twice daily as well as Carafate 4 times daily. Any additional recommendations will be made the EGD. Continue n.p.o. until after the procedure. - Lab Results Fish Bones: 10/09/17 05:40 10/09/17 05:40
[2017-10-09] MEDS ORDERED: DEXTROSE 5%-LACTATED RINGERS 500 ML IV ONE (10:59)
[2017-10-09] MEDS ORDERED: LIDO GARGLE 30 ML BOTTLE ONE (10:59)
[2017-10-09] MEDS ORDERED: PROPOFOL 200 MG/20 ML VIAL IVP ONE (11:29)
[2017-10-09] MEDS ORDERED: LIDOCAINE-MPF 2% 5 ML VIAL IM ONE (11:29)
[2017-10-09] MEDS ORDERED: LACTATED RINGERS 1,000 ML IV ONE (11:34)
[2017-10-09] MEDS: CITALOPRAM 10 MG TABLET PO SCH (11:40)
[2017-10-09] MEDS: LEVOTHYROXINE 25 MCG TABLET PO SCH (11:40)
[2017-10-09] MEDS: FERROUS SULFATE 300 MG/5 ML UDC PO SCH (11:40)
[2017-10-09] MEDS: NICOTINE 21 MG PATCH TOP SCH (11:40)
[2017-10-09] MEDS: METOPROLOL TARTRATE 50 MG TABLET PO SCH (11:40)
[2017-10-09] MEDS: PANTOPRAZOLE 40 MG VIAL IVP SCH (11:41)
[2017-10-09] MEDS: AZITHROMYCIN INJ 500 MG in SODIUM CHLORIDE 0.9% 250 ML IV SCH (11:55)
--- NOTE | 2017-10-09 12:20 | Discharge Plan ---
Discharge Plan Disposition: Home, Self Care Condition: Good Prescriptions: Azithromycin 250 mg PO DAILY #3 tablet Nystatin 100,000 unit PO QID #1000 ml Ondansetron [Zofran Odt] 8 mg PO Q6H PRN #24 tab.rapdis PRN Reason: Nausea / Vomiting oxyCODONE/ACET 5/325 [Percocet 5 mg/325 mg] 1 each PO Q4H PRN #10 tablet PRN Reason: Pain Diet: Regular Activity Restrictions: Activity as Tolerated Shower Restrictions: No Driving Restrictions: No Additional Instructions or Follow Up instructions: You were admitted to the hospital because of nausea and vomiting. Some of your emesis had coffee-ground material that we think was blood. Because of your nausea and vomiting that also induced diabetic ketoacidosis. We had to put you in the ICU, hydrate you aggressively, and give you an insulin drip to bring your sugars down. You did not need a blood transfusion. When you had the endoscopy on the day of discharge, we found you to have severe erosive esophagitis. We also think you have a fungal infection superimposed on the severe erosive esophagitis. You need to see your primary care provider in follow-up. Your primary care provider will then refer you to gastroenterology specialist. That gastroenterology specialist has to see you in the next 6-8 weeks to repeat the endoscopy. It is very important that you complete all the medicine for the erosive esophagitis and the fungus. You may need up to 3-4 weeks of fungus therapy with the swish and swallow fungus solution. Please do not take any nonsteroidals such as aspirin, ibuprofen, Aleve. You also cannot drink any alcohol. I can only stressed you the importance of following up with your primary care provider, and the mortarman. No Smoking: If you smoke, Please STOP! Call for help. Follow-up with: Armand Pleitez MD [Primary Care Provider] -
[2017-10-09 13:07] VITALS: BP 154/88
[2017-10-09] MEDS: ALBUTEROL NEB 2.5 MG/3 ML INH PRN (13:27)
--- NOTE | 2017-10-09 14:22 | DISCHARGE SUMMARY ---
Discharge Summary Admit Date: 10/07/17 Discharge Date: 10/09/17 Discharging Provider: Bianca Keller MD Primary Care Provider: Christopher Pleitez MD Code Status: Attempt Resuscitation Condition at Discharge: Good Discharge Disposition: 01 Home, Self Care - DIAGNOSES Discharge Diagnoses with Status of Each Condition: 1. Hematemesis, resolved 2. Intractable Nausea and vomitting, resolved 3. Erosive Esophagitis 4. DKA, Type 1 5. Type 1 DM, uncontrolled, with hyperglycemia, with complications, on salvage determiner use of insulin 6. Chronic pain syndrome 7. Recurrent UTI, resolved 8. Upper respiratory infection, resolved 9. Acute kidney injury from dehydration - HPI History of Present Illness: She is a 42-year-old white female with a history of type 1 diabetes mellitus since the age of 9. She has been noncompliant with treatment in the past and has had numerous episodes of DKA. Complications of her diabetes include gastroparesis and peripheral neuropathy. She also has a history of asthma, chronic back pain for which she takes chronic opioids. She is with a pain clinic on a pain contract. She has a history of a GI bleed 7 months ago. Yesterday, she began having a productive cough, increased wheezing with her asthma. She then developed nausea and vomiting and was unable to keep any liquids or foods down. She had "coffee ground emesis". Important to note she did have a urinary tract infection 1 week prior to all of this for which she took nitro for endpoint. In the emergency room blood pressure was 107/55, pulse 97, respiration rate was 25, and room air sat was 98%. She had dry oral mucosa, normal heart and lung sounds. Soft, decreased bowel sounds, but nontender abdomen. Left foot was swollen from the forefoot down without redness or heat. White cell count had a 14.9 level with a left shift, hemoglobin 10.9, MCV 98. Urinalysis had glucosuria, ketonuria. She was hyponatremic to 121 with an anion gap of 34, BUN 51, creatinine 2, glucose 716, bilirubin 2.8. Serum ketones were moderate. Toxicology screen was entirely negative. - CONSULTS | PROCEDURES Consultations: General surgery, Luz Goldman MD Procedures: 1. Esophagogastroduodenoscopy: Class C esophagitis extended from the GE junction (35 cm) to 15 cm from the teeth. Circumferential long segmental severe esophagitis without active bleeding. Multiple cold forcep biopsies were obtained. Stomach mucosa and duodenal bulb mucosa were normal. General surgeon reported a wolfe type of discoloration to mucosa. Highly suspicious for fungus. 2. Blood cultures, 2 sets, negative at 48 hours 3. Urine culture contaminated with 10,000 colonies of urogenital matt 4. Respiratory culture, preliminary, with gram-negative rods, fungus. Good specimen on Gram stain 5. Chest x-ray with right IJ catheter with tip in the SVC, low lung volumes and hypoventilatory changes. 6. Central line placement for IV insulin drip - HOSPITAL COURSE Hospital Course: The patient was continued on her antibiotics for a urinary tract infection since she was still having symptoms. However, cultures were contaminated and symptoms resolved. She was continued on antibiotics in the form of Rocephin. The Rocephin was also used to treat the "URI" that she presented with. She will complete therapy for a few more days in the outpatient setting for the URI in the form of azithromycin. With regards to hematemesis of coffee-ground material, hemoglobin remained stable. She did not need blood transfusions. Hemoglobin on admission was 10.9 and hemoglobin at discharge was 8.7. She did undergo an EGD which showed the above changes of erosive esophagitis and probable colonization with fungus. She has been instructed to follow-up with her primary care provider, Dr. Pleitez , and he will need to refer her to gastroenterology. She has been discharged on nystatin swish and swallow for the next few weeks. Dr. Pleitez will need to refer her to gastroenterology for a repeat EGD in 6-8 weeks to make sure she has resolution of erosive esophagitis and resolution of the infection. I have asked the patient to not use any nonsteroidal therapy in the outpatient setting nor to drink any alcohol. She was also very dehydrated. BUN/creatinine reflected acute kidney injury and were normal on the day of discharge. She was felt to have an high anion gap acidosis from her diabetic ketoacidosis. She was placed in the ICU with a central line. She received an insulin drip, had quick resolution of her metabolic derangement and was transitioned to clear liquids. Continued on her long-acting and short-acting insulin. On the day of discharge, after the endoscopy, she had a full meal without nausea or vomiting. She is to resume her usual dose of insulin. At discharge the patient asked for 10 Percocet tablets. She says that she ran out of her pills before admission. She has a long-standing relationship with the chronic pain clinic at [facility]. She has an appointment with them next week. She has been given 10 Percocet. She said she will notify the pain clinic that I have given her the 10. - ALLERGIES Allergies/Adverse Reactions: Allergies Allergy/AdvReac Type Severity Reaction Status Date / Time morphine Allergy Hallucinati Verified 01/26/14 10:47 ons - MEDICATIONS Home Medications: Ambulatory Orders Medication Instructions Recorded Confirmed Insulin Glargine,Hum.rec.anlog 15 unit SUBQ DAILY 08/24/12 10/07/17 [Lantus] Albuterol [Ventolin Hfa] 2 puffs INH Q4H PRN 03/12/14 10/07/17 Metoprolol Tartrate [Lopressor] 100 mg PO DAILY 11/18/14 10/07/17 Insulin Glulisine [Apidra] 0 - 10 units SQ TIDWM PRN 10/13/15 10/07/17 Levothyroxine [Synthroid] 75 mcg PO QDAC 10/13/15 10/07/17 Citalopram [CeleXA] 20 mg PO DAILY 08/20/17 10/07/17 Gabapentin 300 mg PO TID 08/21/17 10/07/17 Omeprazole 40 mg PO BID 08/21/17 10/07/17 Ondansetron [Ondansetron Odt] 4 mg PO Q6H PRN 08/21/17 10/07/17 Sucralfate 1 gm PO ACHS 08/21/17 10/07/17 hydrOXYzine HCl [Hydroxyzine HCl] 25 mg PO QID PRN 08/21/17 10/07/17 Metoclopramide [Reglan] 10 mg PO TID 10/07/17 10/07/17 Oxycodone HCl/Acetaminophen 1 tab PO TID PRN MDD MAX OF 3 10/07/17 10/07/17 [Oxycodone-Acetaminophen 5-325] TABS/DAY Pravastatin Sodium 20 mg PO QPM 10/07/17 10/07/17 Azithromycin 250 mg PO DAILY #3 tablet 10/09/17 Nystatin 100,000 unit PO QID #1000 ml 10/09/17 Ondansetron [Zofran Odt] 8 mg PO Q6H PRN #24 tab.rapdis 10/09/17 oxyCODONE/ACET 5/325 [Percocet 5 1 each PO Q4H PRN #10 tablet 10/09/17 mg/325 mg] - PHYSICAL EXAM AT DISCHARGE General Appearance: positive: No acute distress, Alert (but she has hazy memory from the conscious sedation) Eyes Bilateral: positive: PERRL, EOMI ENT: positive: Pharynx nml Neck: positive: No JVD Respiratory: positive: Chest non-tender. negative: Wheezes, Rales, Rhonchi Cardiovascular: positive: Regular rate & rhythm. negative: Systolic murmur, Gallop/S4, Friction rub Peripheral Pulses: positive: 1+ Abdomen: positive: Non-tender, No organomegaly, Nml bowel sounds, No distention Skin: positive: Warm, Dry Extremities: positive: Full ROM, No pedal edema Neurologic/Psychiatric: positive: Oriented x3, CN's nml (2-12), Motor nml - LABS Result Diagrams: 10/09/17 05:40 10/09/17 05:40 - TIME SPENT Time Spent in Discharge (Minutes): 40
== END 2017-10-09 15:45 | disposition home or self-care (01) | DRG 380 ==
LOC: ED 06:32 → ICU 08:52 → MS2 10-09 00:18
PROVIDERS: ADMIT Internal Medicine; ATTEND Internal Medicine
PROC: 02HV33Z Insertion of Infusion Device into Superior Vena Cava, Percutaneous Approach (ICD-10-PCS; principal; 2017-10-07)
PROC: 0DB48ZX Excision of Esophagogastric Junction, Via Natural or Artificial Opening Endoscopic, Diagnostic (ICD-10-PCS; 2017-10-09)
PROC: 0DB68ZX Excision of Stomach, Via Natural or Artificial Opening Endoscopic, Diagnostic (ICD-10-PCS; 2017-10-09)
PROC: 0DB18ZX Excision of Upper Esophagus, Via Natural or Artificial Opening Endoscopic, Diagnostic (ICD-10-PCS; 2017-10-09)
PROC: 0DB28ZX Excision of Middle Esophagus, Via Natural or Artificial Opening Endoscopic, Diagnostic (ICD-10-PCS; 2017-10-09)
PROC: 0DB38ZX Excision of Lower Esophagus, Via Natural or Artificial Opening Endoscopic, Diagnostic (ICD-10-PCS; 2017-10-09)
DX: K22.11 Ulcer of esophagus with bleeding (principal); E10.10 Type 1 diabetes mellitus with ketoacidosis without coma; N17.0 Acute kidney failure with tubular necrosis; E87.1 Hypo-osmolality and hyponatremia; N17.9 Acute kidney failure, unspecified; N39.0 Urinary tract infection, site not specified; E86.9 Volume depletion, unspecified; E10.43 Type 1 diabetes mellitus with diabetic autonomic (poly)neuropathy; K31.84 Gastroparesis; J06.9 Acute upper respiratory infection, unspecified; J45.909 Unspecified asthma, uncomplicated; G89.29 Other chronic pain; M54.9 Dorsalgia, unspecified; E10.610 Type 1 diabetes mellitus with diabetic neuropathic arthropathy; E10.42 Type 1 diabetes mellitus with diabetic polyneuropathy; F17.210 Nicotine dependence, cigarettes, uncomplicated; I10 Essential (primary) hypertension; E03.9 Hypothyroidism, unspecified; K21.9 Gastro-esophageal reflux disease without esophagitis; F32.9 Major depressive disorder, single episode, unspecified; F41.9 Anxiety disorder, unspecified; T47.1X6A Underdosing of other antacids and anti-gastric-secretion drugs, initial encounter; Z91.138 Patient's unintentional underdosing of medication regimen for other reason; Z72.89 Other problems related to lifestyle; Z79.4 Long term (current) use of insulin; Z79.51 Long term (current) use of inhaled steroids; Z79.891 Long term (current) use of opiate analgesic
CPT/HCPCS: 36415; 71045; 80048; 80053; 80306; 81001; 81003; 81025; 82009; 82040; 82150; 82330; 82803; 82947; 83036; 83690; 83735; 84100; 84478; 84484; 85025; 85027; 85610; 85730; 86850; 86900; 86901; 87040; 87070; 87077; 87086; 87150; 87177; 87181; 87205; 87209; 93005; 94640; 96361; 96374; 96375; 99283; 99285

== ENCOUNTER 2017-11-06 12:47 | Emergency (ER) | payer OTHER ==
[2017-11-06 13:21] VITALS: BP 97/72
== END 2017-11-06 14:55 | disposition left against medical advice (07) ==
LOC: MERGE 12:47 → ED 12:47
DX: Z53.21 Procedure and treatment not carried out due to patient leaving prior to being seen by health care provider (principal)
CPT/HCPCS: 80053; 82009; 82803; 83690; 85025

== ENCOUNTER 2018-01-17 14:28 | Outpatient (CLI) | payer OTHER ==
[2018-01-17 17:47] LABS: HGB - HEMOGLOBIN 13.4 g/dL (12.0-16.0); MEAN CORPUSCULAR HEMOGLOBIN 28.4 pg (27.0-31.0); MEAN CORPUSCULAR VOLUME 88.7 fL (81.0-99.0); MEAN PLATELET VOLUME 7.8 fL (7.9-10.8); RED BLOOD COUNT 4.73 10^6/uL (4.20-5.40); RED CELL DISTRIBUTION WIDTH 18.9 % (12.0-15.0); WHITE BLOOD COUNT 3.5 x10^3/uL (4.8-10.8)
[2018-01-17 18:26] LABS: ALBUMIN 3.8 g/dL (3.2-5.5); ALBUMIN/GLOBULIN RATIO 1.2 (1.0-2.2); ALKALINE PHOSPHATASE 114 IU/L (42-121); ALT ALANINE AMINOTRANSFERASE 27 IU/L (10-60); AST ASPARTATE AMINOTRANSFERASE 63 IU/L (10-42); BILIRUBIN,TOTAL 0.4 mg/dL (0.2-1.0); BUN - BLOOD UREA NITROGEN 9 mg/dL (6-20); CALCIUM 8.9 mg/dL (8.5-10.3); CARBON DIOXIDE - CO2 23 mmol/L (21-32); CHLORIDE 96 mmol/L (101-111); CHOL/HDL RATIO 1.8 (<4.4); CHOLESTEROL 190 mg/dL; CREATININE 0.6 mg/dL (0.4-1.0); GFR - MDRD 109 (>89); GLUCOSE 259 mg/dL (70-100); HDL CHOLESTEROL 104 mg/dL; LDL CHOLESTEROL,CALCULATED 61 mg/dL; LDL/HDL RATIO 0.6 (<4.4); SODIUM 132 mmol/L (135-145); VLDL CHOLESTEROL 25 mg/dL
[2018-01-17 19:27] LABS: HEMOGLOBIN A1C 1.32 g/dL; HEMOGLOBIN A1C % 10.8 % (4.6-6.2)
== END 2018-01-17 14:29 | disposition home or self-care (01) ==
LOC: LAB.F 14:28
PROVIDERS: ATTEND Internal Medicine
DX: E10.9 Type 1 diabetes mellitus without complications (principal)
CPT/HCPCS: 36415; 80053; 80061; 82043; 83036; 83721; 85027

== ENCOUNTER 2018-07-26 13:43 | Outpatient (CLI) | payer OTHER | END 2018-07-26 13:44 | disposition home or self-care (01) | LOC: LAB.F 13:43 | PROVIDERS: ATTEND Registered Nurse | DX: N91.1 Secondary amenorrhea (principal) ==

== ENCOUNTER 2018-07-31 13:29 | Outpatient (CLI) | payer OTHER ==
--- NOTE | 2018-08-01 08:37 | Ultrasound Report ---
Reason: PELVIC PAIN, ACUTE Procedure Date: 07/31/2018 Accession Number: [id number] / [id number] Procedure: US - Pelvic w/Transvaginal CPT Code: FULL RESULT: EXAM: PELVIC ULTRASOUND EXAM DATE: 07/31/2018 02:41 PM. CLINICAL HISTORY: Pelvic pain, acute. COMPARISON: None. TECHNIQUE: Realtime transabdominal pelvic scan performed to identify the uterus and adnexa and as an overview of other pelvic structures, followed by transvaginal scan to provide greater detail of the uterus and adnexa, with static image documentation. FINDINGS: Uterus: 6.5 x 3.5 x 5.1 cm, volume 61.8 cc. Anteverted position. Normal overall size and echotexture. Masses: None. Endometrium: 1 mm. Normal. Cervix: Unremarkable. Right Ovary: 1.5 x 0.9 x 1.1 cm, volume 0.8 cc. Normal echotexture and blood flow. Left Ovary: Not visualized. Free Fluid: None. Other: None. IMPRESSION: 1. Nonvisualization of the left ovary. Otherwise no specific abnormalities demonstrated. RADIA
== END 2018-07-31 13:30 | disposition home or self-care (01) ==
LOC: DI 13:29
PROVIDERS: ATTEND Registered Nurse
DX: R10.2 Pelvic and perineal pain (principal)
CPT/HCPCS: 76830; 76856

== ENCOUNTER 2018-08-14 12:53 | Outpatient (CLI) | payer OTHER ==
--- NOTE | 2018-08-14 19:00 | Ultrasound Report ---
Reason: PELVIC PAIN, ACUTE Procedure Date: 08/14/2018 Accession Number: [id number] / [id number] Procedure: US - Pelvic w/Transvaginal CPT Code: FULL RESULT: EXAM: PELVIC ULTRASOUND EXAM DATE: 08/14/2018 02:07 PM. CLINICAL HISTORY: PELVIC PAIN, ACUTE. COMPARISON: 07/31/2018. TECHNIQUE: Realtime transabdominal pelvic scan performed to identify the uterus and adnexa and as an overview of other pelvic structures, followed by transvaginal scan to provide greater detail of the uterus and adnexa, with static image documentation. FINDINGS: Uterus: 6.3 x 2.7 x 3.2 cm, volume 28 cc. Anteverted position. Normal overall size and echotexture. Masses: None Endometrium: 1.2 mm. Normal. Cervix: Unremarkable. Right Ovary: 1.6 x 0.9 x 1.1 cm, volume 0.8 cc. Normal echotexture and blood flow. Left Ovary: 1.3 x 0.9 x 0.9 cm, volume 1 cc. Normal echotexture and blood flow. Free Fluid: None. Other: No significant change compared with 07/31/2018. No definite source for pain identified. IMPRESSION: Unremarkable pelvic ultrasound stable compared with 07/31/2018.. RADIA
== END 2018-08-14 12:54 | disposition home or self-care (01) ==
LOC: DI 12:53
PROVIDERS: ATTEND Registered Nurse
DX: R10.2 Pelvic and perineal pain (principal)
CPT/HCPCS: 76830; 76856

== ENCOUNTER 2018-09-03 05:46 | Outpatient (CLI) | payer OTHER | END 2018-09-03 05:47 | disposition short-term general hospital (02) | LOC: EMS 05:46 | PROVIDERS: ATTEND Surgery | DX: R41.0 Disorientation, unspecified (principal); R11.0 Nausea; R52 Pain, unspecified; R53.1 Weakness; R73.09 Other abnormal glucose | CPT/HCPCS: A0425; A0427 ==

== ENCOUNTER 2019-03-28 12:57 | Outpatient (CLI) | payer OTHER ==
--- NOTE | 2019-03-28 14:23 | XRAY Report ---
Reason: R09.89 J20.9 BASILAR RALES, BRONCHITIS Procedure Date: 03/28/2019 Accession Number: [id number] / [id number] Procedure: XRS - Chest 2 View X-Ray CPT Code: 96595 Final Report FULL RESULT: EXAM: CHEST RADIOGRAPHY EXAM DATE: 03/28/2019 01:11 PM. CLINICAL HISTORY: R09. 89 J20. 9 BASILAR RALES, BRONCHITIS. COMPARISON: CHEST FOR LINE PLACEMENT 10/07/2017 10:34 AM. TECHNIQUE: 2 views. FINDINGS: Lungs/Pleura: No focal opacities evident. No pleural effusion. No pneumothorax. Normal volumes. Mediastinum: Heart and mediastinal contours are unremarkable. Other: None. IMPRESSION: Normal 2-view chest radiography. RADIA
== END 2019-03-28 12:58 | disposition home or self-care (01) ==
LOC: DI.S 12:57
PROVIDERS: ATTEND Physician Assistant Medical
DX: J20.9 Acute bronchitis, unspecified (principal); R09.89 Other specified symptoms and signs involving the circulatory and respiratory systems
CPT/HCPCS: 71046

== ENCOUNTER 2019-07-17 16:35 | Inpatient (IN) | payer OTHER ==
[2019-07-17] MEDS ORDERED: PIPERACILLIN/TAZOBACTAM 3.375 GM in SODIUM CHLORIDE 0.9% MINIBAG 100 ML IV STA (16:55)
[2019-07-17] MEDS ORDERED: HYDROmorphone 2 MG/ML VIAL IVP STA (16:56)
--- NOTE | 2019-07-17 16:58 | ED Physician Documentation ---
PD HPI LOWER EXT INJURY - Stated complaint Stated Complaint: BLISTERS ON BOTTOMS OF FEET - Chief complaint Chief Complaint: Ext Problem - History obtained from History obtained from: Patient - History of Present Illness PD HPI LOW EXT INJURY LOCATION: Left (This is a 44-year-old longstanding type I diabetic who presents with a progressive infection starting last night or this morning on the left foot. She does have a history of neuropathy as well as diabetic gastroparesis. She has a Charcot foot on the left. It was looking just a little shiny before work today, but after work it was quite swollen and painful for her. She denies fevers or chills.) Review of Systems Ten Systems: 10 systems reviewed and negative Constitutional: denies: Fever, Chills Nose: reports: Reviewed and negative Cardiac: reports: Reviewed and negative Respiratory: reports: Reviewed and negative GI: reports: Reviewed and negative : reports: Reviewed and negative Musculoskeletal: reports: Reviewed and negative Neurologic: reports: Reviewed and negative Psychiatric: reports: Reviewed and negative PD PAST MEDICAL HISTORY - Past Medical History Cardiovascular: Hypertension Respiratory: Asthma, Pneumonia Neuro: Peripheral neuropathy Endocrine/Autoimmune: Type 1 diabetes, HyPOthyroidism GI: GERD, Other : None HEENT: Other Psych: Depression, Anxiety Musculoskeletal: Osteoarthritis, Chronic back pain, Osteoporosis Derm: None - Past Surgical History Past Surgical History: No - Present Medications Home Medications: Ambulatory Orders Medication Instructions Recorded Confirmed Insulin Glargine,Hum.rec.anlog 15 unit SUBQ DAILY 08/24/12 10/07/17 [Lantus] Albuterol [Ventolin Hfa] 2 puffs INH Q4H PRN 03/12/14 10/07/17 Metoprolol Tartrate [Lopressor] 100 mg PO DAILY 11/18/14 10/07/17 Insulin Glulisine [Apidra] 0 - 10 units SQ TIDWM PRN 10/13/15 10/07/17 Levothyroxine [Synthroid] 75 mcg PO QDAC 10/13/15 10/07/17 Citalopram [CeleXA] 20 mg PO DAILY 08/20/17 10/07/17 Gabapentin 300 mg PO TID 08/21/17 10/07/17 Omeprazole 40 mg PO BID 08/21/17 10/07/17 Ondansetron [Ondansetron Odt] 4 mg PO Q6H PRN 08/21/17 10/07/17 Sucralfate 1 gm PO ACHS 08/21/17 10/07/17 hydrOXYzine HCL [Hydroxyzine HCl] 25 mg PO QID PRN 08/21/17 10/07/17 Metoclopramide [Reglan] 10 mg PO TID 10/07/17 10/07/17 Oxycodone HCl/Acetaminophen 1 tab PO TID PRN MDD MAX OF 3 10/07/17 10/07/17 [Oxycodone-Acetaminophen 5-325] TABS/DAY Pravastatin Sodium 20 mg PO QPM 10/07/17 10/07/17 Azithromycin 250 mg PO DAILY #3 tablet 10/09/17 Nystatin 100,000 unit PO QID #1000 ml 10/09/17 Ondansetron [Zofran Odt] 8 mg PO Q6H PRN #24 tab.rapdis 10/09/17 oxyCODONE/ACET 5/325 [Percocet 5 1 each PO Q4H PRN #10 tablet 10/09/17 mg/325 mg] Albuterol Sulf [Ventolin Hfa 2 puffs INH PRN PRN 11/06/17 11/06/17 Inhaler] Citalopram [CeleXA] 2 tab PO DAILY 11/06/17 11/06/17 Cyclobenzaprine [Flexeril] 1 tab PO TID PRN 11/06/17 11/06/17 Gabapentin 1 tab PO TID 11/06/17 11/06/17 Insulin Glargine [Lantus Solostar] 18 units SQ DAILY 11/06/17 11/06/17 Insulin Glulisine [Apidra Solostar] 10 unit SQ TIDWM 11/06/17 11/06/17 Ipratropium/Albuterol [Duoneb] 1 amp INH QID 11/06/17 11/06/17 Levothyroxine Sodium [Synthroid] 1 tab PO DAILY 11/06/17 11/06/17 Metoclopramide [Reglan] 4 tab PO DAILY 11/06/17 11/06/17 Metoprolol Tartrate 1 tab PO DAILY 11/06/17 11/06/17 Omeprazole [PriLOSEC] 1 tab PO DAILY 11/06/17 11/06/17 Ondansetron HCl [Zofran] 1 tab PO Q6H PRN 11/06/17 11/06/17 Oxycodone HCl 1 tab PO Q4H PRN 11/06/17 11/06/17 Pantoprazole Sodium 1 tab PO DAILY 11/06/17 11/06/17 Pravastatin Sodium 1 tab PO DAILY 11/06/17 11/06/17 Sucralfate [Carafate] 1 tab PO QID 11/06/17 11/06/17 Varenicline Tartrate [Chantix] 1 tab PO BID 11/06/17 11/06/17 hydrOXYzine HCL [Hydroxyzine HCl] 25 mg PO DAILY 11/06/17 11/06/17 - Allergies Allergies/Adverse Reactions: Allergies Allergy/AdvReac Type Severity Reaction Status Date / Time morphine Allergy Hallucinati Verified 07/17/19 16:45 ons - Social History Does the pt smoke?: Yes Smoking Status: Current every day smoker Does the pt drink ETOH?: Yes Does the pt have substance abuse?: No - Immunizations Immunizations are current?: Yes - POLST Patient has POLST: No POLST Status: Full Code PD ED PE NORMAL - Vitals Vital signs reviewed: Yes - General General: Alert and oriented X 3, No acute distress - HEENT HEENT: PERRL, EOMI - Neck Neck: Supple, no meningeal sign, No bony TTP - Cardiac Cardiac: RRR, No murmur - Respiratory Respiratory: No respiratory distress, Clear bilaterally - Abdomen Abdomen: Non tender - Back Back: No CVA TTP, No spinal TTP - Derm Derm: Normal color, Warm and dry - Extremities Extremities: Other (She has cellulitis of the left foot, it looks like the portal of entry was a callus on the medial midfoot, distal to that she has swelling and skin that is necrotic and debrided during exam out to the great toe. It is difficult to palpate pedal pulses but they are easily dopplerable on the left. A culture was taken during exam.) - Neuro Neuro: Alert and oriented X 3, Normal speech - Psych Psych: Normal mood, Normal affect Results - Vitals Vitals: Vital Signs - 24 hr 07/17/19 07/17/19 16:39 17:37 Temperature 36.9 C Heart Rate 98 92 Respiratory 16 16 Rate Blood Pressure 99/61 138/83 H O2 Saturation 98 99 Oxygen O2 Source Room air - Labs Labs: Laboratory Tests 07/17/19 07/17/19 07/17/19 17:20 17:20 17:20 WBC 25.6 H RBC 3.55 L Hgb 10.4 L Hct 31.5 L MCV 88.7 MCH 29.3 MCHC 33.0 RDW 13.1 Plt Count 398 MPV 9.1 Neut # (Auto) 21.6 H Lymph # (Auto) 1.5 Rankin # (Auto) 1.9 H Eos # (Auto) 0.0 Baso # (Auto) 0.0 Absolute Nucleated RBC 0.00 Nucleated RBC % 0.0 Manual Slide Review Indicated WBC Morphology 1+ TOXIC GRANULATION Platelet Estimate NORMAL (130-450,000) Platelet Morphology NORMAL APPEARANCE RBC Morph Micro Appear 1+ STOMATOCYTES ESR Sodium 122 L Potassium 3.9 Chloride 77 L* Carbon Dioxide 26 Anion Gap 19.0 H BUN 48 H Creatinine 2.2 H Estimated GFR (MDRD) 24 L Glucose 509 H* Lactic Acid 1.4 Calcium 8.5 Total Bilirubin 1.1 H AST 16 ALT 14 Alkaline Phosphatase 133 H C-Reactive Protein 28.3 H Total Protein 7.1 Albumin 3.3 Globulin 3.8 Albumin/Globulin Ratio 0.9 L Lipase 15 L Serum Ketones SMALL H 07/17/19 17:20 WBC RBC Hgb Hct MCV MCH MCHC RDW Plt Count MPV Neut # (Auto) Lymph # (Auto) Rankin # (Auto) Eos # (Auto) Baso # (Auto) Absolute Nucleated RBC Nucleated RBC % Manual Slide Review WBC Morphology Platelet Estimate Platelet Morphology RBC Morph Micro Appear ESR 36 H Sodium Potassium Chloride Carbon Dioxide Anion Gap BUN Creatinine Estimated GFR (MDRD) Glucose Lactic Acid Calcium Total Bilirubin AST ALT Alkaline Phosphatase C-Reactive Protein Total Protein Albumin Globulin Albumin/Globulin Ratio Lipase Serum Ketones PD MEDICAL DECISION MAKING - ED course ED course: This is a 44-year-old woman with longstanding type 1 diabetes, at times poorly controlled. She has a diabetic foot infection on the left that is rapidly progressive, but I do not see any cardinal evidence of a necrotizing infection: No pain out of proportion to exam, no crepitance, no gas on the x-ray. Given the significantly elevated white count and rapid progression of the infection she was cultured up and placed on antibiotics. I spoke with Dr. Verduzco for admission at 5:50 PM. We spoke again after all of her labs were resulted and given the height of her blood sugar and the acute renal failure he will put her in the ICU. He request that I do not start an insulin drip in the ER, as it tends to confuse everybody and they will just started in the ICU on his order. I did order IV fluid hydration. Departure - Departure Disposition: 66 [facility] DC/Xfer Clinical Impression: Cellulitis of left foot, Charcot's joint arthropathy in type 1 diabetes mellitus, MARTITA (acute kidney injury), Hyperglycemia Condition: Serious
--- NOTE | 2019-07-17 17:32 | XRAY Report ---
Reason: diabetic foot inffection Procedure Date: 07/17/2019 Accession Number: [id number] / [id number] Procedure: XR - Foot 3 View LT CPT Code: Final Report FULL RESULT: EXAM: LEFT FOOT RADIOGRAPHY EXAM DATE: 07/17/2019 05:21 PM. CLINICAL HISTORY: Diabetic foot infection. COMPARISON: FOOT 3 VIEW LT 11/30/2015 3:18 PM. TECHNIQUE: 3 views. FINDINGS: Bones: No fractures or evidence of osteomyelitis. Joints: Significant progression of degenerative changes at the first through fifth tarsometatarsal joints. There is hypertrophic bone formation surrounding the joints with overall deformity of the midfoot. Soft Tissues: Midfoot soft tissue swelling. IMPRESSION: Progressive neuropathic arthropathy. No evidence of fracture or obvious osteomyelitis. RADIA
[2019-07-17 17:40] LABS: BASOPHILS % (AUTO) 0.2 %; EOSINOPHILS % (AUTO) 0.1 %; HGB - HEMOGLOBIN 10.4 g/dL (12.0-16.0); LYMPHOCYTES # (AUTO) 1.5 10^3/uL (1.5-3.5); LYMPHOCYTES % (AUTO) 5.9 %; MEAN CORPUSCULAR HEMOGLOBIN 29.3 pg (27.0-31.0); MEAN CORPUSCULAR VOLUME 88.7 fL (81.0-99.0); MEAN PLATELET VOLUME 9.1 fL (7.9-10.8); MONOCYTES # (AUTO) 1.9 10^3/uL (0.0-1.0); MONOCYTES % (AUTO) 7.3 %; NEUTROPHILS # (AUTO) 21.6 10^3/uL (1.5-6.6); NEUTROPHILS % (AUTO) 84.4 %; PLT - PLATELET COUNT 398 10^3/uL (130-450); RED BLOOD COUNT 3.55 10^6/uL (4.20-5.40); RED CELL DISTRIBUTION WIDTH 13.1 % (12.0-15.0); WHITE BLOOD COUNT 25.6 x10^3/uL (4.8-10.8)
[2019-07-17] MEDS ORDERED: VANCOMYCIN INJ 1 GM in SODIUM CHLORIDE 0.9% 500 ML IV STA (17:44)
[2019-07-17 17:55] LABS: KETONES, SERUM (ACETEST) SMALL (NEGATIVE)
[2019-07-17 18:17] LABS: ALBUMIN 3.3 g/dL (3.2-5.5); ALBUMIN/GLOBULIN RATIO 0.9 (1.0-2.2); ALKALINE PHOSPHATASE 133 IU/L (42-121); ALT ALANINE AMINOTRANSFERASE 14 IU/L (10-60); AST ASPARTATE AMINOTRANSFERASE 16 IU/L (10-42); BILIRUBIN,TOTAL 1.1 mg/dL (0.2-1.0); BUN - BLOOD UREA NITROGEN 48 mg/dL (6-20); CALCIUM 8.5 mg/dL (8.5-10.3); CARBON DIOXIDE - CO2 26 mmol/L (21-32); CREATININE 2.2 mg/dL (0.4-1.0); CRP - C-REACTIVE PROTEIN 28.3 mg/dL (0-1.0); LIPASE 15 U/L (22-51); SODIUM 122 mmol/L (135-145); TOTAL PROTEIN 7.1 g/dL (6.7-8.2)
[2019-07-17 18:19] LABS: CHLORIDE 77 mmol/L (101-111); GLUCOSE 509 mg/dL (70-100)
[2019-07-17] MEDS ORDERED: SODIUM CHLORIDE 0.9% 1,000 ML IV ONE ×3 (18:19→19:30)
[2019-07-17 18:20] LABS: PLATELET ESTIMATE, MANUAL NORMAL (130-450,000) (NORMAL); PLATELET MORPHOLOGY NORMAL APPEARANCE (NORMAL)
[2019-07-17] MEDS ORDERED: ACETAMINOPHEN 325 MG TABLET PO PRN (18:20)
[2019-07-17] MEDS ORDERED: ONDANSETRON 4 MG/2 ML VIAL IVP PRN (18:20)
[2019-07-17] MEDS ORDERED: SODIUM CHLORIDE FLUSH 0.9% 10 ML SYRINGE IVP PRN (18:20)
[2019-07-17] MEDS ORDERED: INSULIN REGULAR HUMAN 100 UNIT/1 ML 10 ML MDV SUBQ ONE (18:30)
[2019-07-17 18:38] LABS: VBG BASE EXCESS 1.4 mmol/L (-2 - +2); VBG PCO2 35.5 mmHg (41-51); VBG PH 7.465 (7.31-7.41); VBG PO2 177.7 mmHg (25-47); VBG TOTAL CO2 26.1 mmol/L (24-29)
[2019-07-17] MEDS ORDERED: INSULIN REGULAR HUMAN 100 UNIT in SODIUM CHLORIDE 0.9% 100ML 99 ML IV SCH (19:00)
--- NOTE | 2019-07-17 19:16 | HISTORY & PHYSICAL EXAMINATION ---
Chief Complaint - Chief Complaint Chief Complaint: Blister on foot History of Present Illness - Admitted From Admitted From:: Home - History Obtained From Records Reviewed: Yes History obtained from: Patient Exam Limitations: None - History of Present Illness HPI Comment/Other: Patient is a 44-year-old female with a past medical history significant for type 1 diabetes mellitus since the age of 9 on insulin, hypertension, hypothyroidism, peripheral neuropathy, Charcot's joint of the left foot, asthma, diabetic retinopathy, diabetic gastroparesis and carpal tunnel syndrome who presented to the emergency department with a chief complaint of left foot pain and swelling. According to the patient she began having some pain in her left foot a few days ago when she looked down she noticed that she had a small area of on the bottom of her left foot beneath her big toe which appeared to be blistered. The patient states that the blister became worse yesterday and first today. She states after the blister burst she noted that she has had increased swelling in the foot and today her pain became so severe that she had to come into the emergency department. The patient denies having had any fevers or chills. She states that at home she has been checking her blood sugars and they have been running in the 200-300s. She does admit that for the last 2 days that she has had increased nausea and vomiting. She states overall she has not been feeling well. She states that she is not been able to keep much down over the last 2 days. She denies any headaches, blurred vision, runny nose, sore throat, nasal congestion, chest pain, shortness of air, cough, orthopnea, PND, increased lower extremity swelling, urinary urgency, urinary frequency, dysuria, back pain, neck stiffness, recent unintentional weight loss, night sweats or any focal neurologic deficits. The patient does state that today she is noted that she has polydipsia and polyphagia. She states although she has not eaten much the last 2 days she does feel as though she has increased appetite today. On presentation to the emergency department the patient was afebrile, tachycardic with heart rate of 98 and had a borderline blood pressure of 99/61. The patient was not tachypneic and not in any respiratory distress or hypoxic. She underwent routine lab work which did reveal leukocytosis of 25.6 with a left shift, elevated ESR of 36 and CRP of 28.3. The patient also had severe dehydration on lab work with a sodium of 122, chloride of 77, creatinine of 2.2 which was significantly elevated from her baseline. The patient's blood glucose on presentation was 519 and she had an elevated anion gap with positive ketones in her serum. The patient's left foot was extremely swollen with a ulcerated area on the plantar aspect of the medial left foot. The area was large with overlying swelling and erythema. The patient appeared to have sepsis secondary to a diabetic foot infection with secondary diabetic ketoacidosis. She was admitted to the intensive care unit on an insulin drip. The patient was given IV vancomycin and Zosyn in the emergency department. Blood cultures and wound cultures were obtained in the emergency department. 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 Living arrangement: At home Living Situation: With spouse/s.o. Social History Notes: Patient lives in [place], [place]. 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 She states that she has smoked most of her life but quit recently and now is back to smoking about half pack a day. Prior to that she states that she smoked anywhere from half a pack to a pack a day for more than 20 years. She states that she does also drink coffee daily. She was previously a drinker and would drink daily but states she cut back in about a week ago she stopped drinking completely. She states that she does smoke marijuana on a regular basis but denies any other illicit drug use. The patient has never had any children. - Substance History Use: Uses substance without health or social issues: Tobacco, Cannabis - POLST Patient has POLST: No POLST Status: Full Code Meds/Allgy - Home Medications Home Medications: Ambulatory Orders Medication Instructions Recorded Confirmed Albuterol [Ventolin Hfa] 2 puffs INH Q4H PRN 03/12/14 10/07/17 Metoprolol Tartrate [Lopressor] 100 mg PO DAILY 11/18/14 10/07/17 Gabapentin 300 mg PO TID 08/21/17 07/17/19 Ondansetron [Ondansetron Odt] 4 mg TL Q6H PRN 08/21/17 07/17/19 Metoclopramide [Reglan] 10 mg PO TID 10/07/17 10/07/17 Pravastatin Sodium 20 mg PO QPM 10/07/17 10/07/17 Ipratropium/Albuterol [Duoneb] 3 ml INH QID PRN 11/06/17 07/17/19 Pantoprazole Sodium 40 mg PO BID 11/06/17 11/06/17 Varenicline Tartrate [Chantix] 1 tab PO BID 11/06/17 11/06/17 ARIPiprazole [Aripiprazole] 10 mg PO QPM 07/17/19 07/17/19 Albuterol Sulfate [Albuterol 2 puffs INH Q4H PRN 07/17/19 07/17/19 Sulfate Hfa] Citalopram Hydrobromide [Celexa] 40 mg PO DAILY 07/17/19 07/17/19 Insulin Glargine [Lantus Solostar] 0 unit 07/17/19 Insulin Glulisine [Apidra] 30 unit SUBQ .INSULINPUMP 07/17/19 07/17/19 Levothyroxine Sodium 75 mcg PO QDAC 07/17/19 07/17/19 - Allergies Allergies/Adverse Reactions: Allergies Allergy/AdvReac Type Severity Reaction Status Date / Time morphine Allergy Hallucinati Verified 07/17/19 16:45 ons Review of Systems - Other Findings Other Findings: A comprehensive review of systems was performed the pertinent positives and negatives are stated above in the HPI and the remainder of the review of systems is negative. Prior Level of Functionality: Independent Exam - Vital Signs Reviewed Vital Signs: Yes Vital Signs: Vital Signs x48h Temp Pulse Resp BP BP Pulse Ox 07/17/19 19:00 36.8 C 14 118/79 98 07/17/19 18:30 87 16 108/74 96 07/17/19 17:37 92 16 138/83 H 99 04/30/20 16:39 36.9 C 98 16 99/61 98 - Physical Exam General Appearance: positive: Alert, Mild distress (Mild distress secondary to pain in her left foot) Eyes Bilateral: positive: Normal inspection, PERRL, EOMI, No lid inflammation, Conjunctivae nml, No scleral icterus ENT: positive: ENT inspection nml, Pharynx nml, Dry mucous membranes. negative: Purulent nasal drainage, Pharyngeal erythema, Oral lesions Neck: positive: Nml inspection, Thyroid nml, No JVD, Trachea midline. negative: Thyromegaly, Lymphadenopathy (R), Lymphadenopathy (L), Stiff neck, Carotid bruit Respiratory: positive: Chest non-tender, No respiratory distress, Breath sounds nml. negative: Wheezes, Rales, Rhonchi Cardiovascular: positive: Regular rate & rhythm, No murmur, No gallop Peripheral Pulses: positive: 2+ Abdomen: positive: Non-tender, No organomegaly, Nml bowel sounds, No distention. negative: Guarding, Rebound, Hepatomegaly Back: positive: Nml inspection. negative: CVA tenderness (R), CVA tenderness (L) Skin: positive: Warm, Other (Medial plantar aspect of the left foot with large area of ulceration and skin breakdown. Patient appears to have swelling and bruising of the medial portion of the left foot involving the left big toe with large underlying ulcer. Area is very tender, warm to touch and has erythema surrounding it.) Extremities: positive: Full ROM, Nml appearance, Pedal edema, Joint swelling Neurologic/Psychiatric: positive: Oriented x3, CN's nml (2-12), Motor nml, Sensation nml, Mood/affect nml Sepsis Event Note (H) - Evaluation Current Stage of Sepsis: Sepsis Possible source of Sepsis: positive: Skin/soft tissue - Sepsis Criteria Sepsis Criteria: Recorded Heart Rate greater than 90 bpm, WBC count greater than 12,000 or less than 4000, Renal: urine output less than 0.5ml/kg/hr for 2 hours or creatinine gr Conclusion/Plan - Problem List (1) Sepsis Conclusion/Plan: Patient presented to the emergency department with left foot pain and swelling. On presentation the patient was tachycardic, with a borderline blood pressure, leukocytosis of 25.6 and acute kidney injury with creatinine of 2.2 and in diabetic ketoacidosis. Patient's lactic acid was normal. Likely source of the patient's sepsis is a left diabetic foot infection. Patient given IV vancomycin and Zosyn in the emergency department. X-ray of the left foot does not show any evidence of osteomyelitis but does show soft tissue swelling. Given the rapid progression of the patient's foot infection we have ordered a CT of her foot as well as repeat lactic acid and CK levels. Orthopedic surgery will be consulted Blood cultures and wound cultures have been collected. Patient will be monitored closely in the ICU Qualifiers: Sepsis type: sepsis due to unspecified organism Sepsis acute organ dysfunction status: with acute organ dysfunction Severe sepsis acute organ dysfunction type: acute renal failure Acute renal failure type: unspecified Severe sepsis shock status: without septic shock Qualified Code(s): A41.9 - Sepsis, unspecified organism; R65.20 - Severe sepsis without septic shock; N17.9 - Acute kidney failure, unspecified (2) Diabetic infection of left foot Conclusion/Plan: Patient appears to have a severe diabetic foot ulcer in the left foot. The ulcer appears to be infected within creasing swelling and erythema. Patient has significant amount of pain in the left foot. She presented with leukocytosis, tachycardia, acute kidney injury and DKA with sepsis secondary to diabetic foot infection. Patient appears to have open infection on the plantar aspect of the left foot which could be secondary to gram-positive, gram-negative or anaerobic organisms. We will treat the patient's infection with broad-spectrum antibiotics vancomycin and Zosyn. I will give 1 dose of IV clindamycin in the case of possible necrotizing fasciitis. It appears unlikely that the patient has necrotizing fasciitis as she would likely be more ill however we will get a CT of the patient's left leg, repeat lactic acid level and a CK level If we do have higher suspicion for necrotizing fasciitis the patient will need to be transferred. We will consult orthopedic surgery in the morning as patient will likely need debridement of the left foot and possible amputation. Patient would benefit from MRI to rule out osteomyelitis but we will treat with IV antibiotics for now. Patient x-ray of the left foot was negative for osteomyelitis. Pain control with IV Dilaudid Check ABIs for possible peripheral arterial disease (3) Diabetic ketoacidosis Conclusion/Plan: Patient presents with diabetic ketoacidosis likely secondary to ongoing sepsis from diabetic foot infection. Patient admitted to the intensive care unit on insulin drip Patient currently n.p.o. Anion gap is 19 on presentation with positive ketones and glucose of 509. On VBG patient does not appear to have acidosis as she likely has a mixed blood gas due to metabolic alkalosis from severe dehydration after 2 days of persistent vomiting. Give IV fluids Once anion gap closes patient can be started on Lantus, sliding scale insulin and carb controlled diet Check hemoglobin A1c Qualifiers: Diabetes mellitus type: type 1 Diabetes mellitus complication detail: [facility] coma Qualified Code(s): E10.10 - Type 1 diabetes mellitus with keto acidosis without coma (4) MARTITA (acute kidney injury) Conclusion/Plan: Likely secondary to severe dehydration from DKA and sepsis Creatinine is elevated to 2.2 with BUN of 48 patient's baseline creatinine 0.6. Patient given 1 L fluid bolus in the emergency department and now will be on maintenance fluid with treatment of DKA. Monitor creatinine closely Avoid nephrotoxic agent (5) Hypertension Conclusion/Plan: We will hold patient's home dose of metoprolol in the setting of diabetic foot infection and sepsis Monitor blood pressure closely Qualifiers: Hypertension type: essential hypertension Qualified Code(s): I10 - Essential (primary) hypertension (6) Hypothyroidism Conclusion/Plan: Continue home dose of levothyroxine Stable Qualifiers: Hypothyroidism type: due to medication Qualified Code(s): E03.2 - Hypothyroidism due to medicaments and other exogenous substances (7) Hyponatremia Conclusion/Plan: Patient appears to have hypovolemic hyponatremia secondary to severe dehydration in the setting of sepsis and DKA. Patient will be given IV fluids and we will continue to monitor sodium Partially the patient has pseudohyponatremia secondary to hyperglycemia. (8) Depression Conclusion/Plan: Patient continued on home dose of Celexa and Abilify Qualifiers: Depression Type: unspecified Qualified Code(s): F32.9 - Major depressive disorder, single episode, unspecified (9) Tobacco abuse Conclusion/Plan: Patient counseled and placed on nicotine patch (10) Peripheral neuropathy Conclusion/Plan: Patient has peripheral neuropathy secondary to diabetes Continue gabapentin (11) Asthma Conclusion/Plan: Patient does not appear to have acute exacerbation We will place on duo nebs as needed Qualifiers: Asthma severity: mild Asthma persistence: intermittent - Lab Results Lab results reviewed: Yes Fish Bones: 07/17/19 17:20 07/17/19 17:20 Other Lab Results: Laboratory Results WBC 25.6 x10^3/uL (4.8-10.8) H 07/17/19 17:20 RBC 3.55 10^6/uL (4.20-5.40) L 07/17/19 17:20 Hgb 10.4 g/dL (12.0-16.0) L 07/17/19 17:20 Hct 31.5 % (37.0-47.0) L 07/17/19 17:20 MCV 88.7 fL (81.0-99.0) 07/17/19 17:20 MCH 29.3 pg (27.0-31.0) 07/17/19 17: MCHC 33.0 g/dL (32.0-36.0) 07/17/19 17:20 RDW 13.1 % (12.0-15.0) 07/17/19 17:20 Plt Count 398 10^3/uL (130-450) 07/17/19 17:20 MPV 9.1 fL (7.9-10.8) 07/17/19 17:20 Neut # (Auto) 21.6 10^3/uL (1.5-6.6) H 07/17/19 17:20 Lymph # (Auto) 1.5 10^3/uL (1.5-3.5) 07/17/19 17:20 [place] # (Auto) 1.9 10^3/uL (0.0-1.0) H 07/17/19 17:20 Eos # (Auto) 0.0 10^3/uL (0.0-0.7) 07/17/19 17:20 Baso # (Auto) 0.0 10^3/uL (0.0-0.1) 07/17/19 17:20 Absolute Nucleated RBC 0.00 x10^3/uL 07/17/19 17:20 Nucleated RBC % 0.0 /100WBC 07/17/19 17:20 Manual Slide Review Indicated 07/17/19 17:20 WBC Morphology 1+ SMUDGE CELLS (NORMAL) 1+ TOXIC GRANULATION (NORMAL) 07/17/19 17:20 WBC Morphology 1+ SMUDGE CELLS (NORMAL) 1+ TOXIC GRANULATION (NORMAL) 07/17/19 17:20 Platelet Estimate NORMAL (130-450,000) (NORMAL) 07/17/19 17:20 Platelet Morphology NORMAL APPEARANCE (NORMAL) 07/17/19 17:20 RBC Morph Micro Appear 1+ HYPOCHROMASIA (NORMAL) 1+ STOMATOCYTES (NORMAL) 07/17/19 17:20 RBC Morph Micro Appear 1+ HYPOCHROMASIA (NORMAL) 1+ STOMATOCYTES (NORMAL) 07/17/19 17:20 ESR 36 mm/Hr (0-20) H 07/17/19 17:20 VBG pH 7.465 (7.31-7.41) H 07/17/19 18:27 VBG pCO2 35.5 mmHg (41-51) L 07/17/19 18: VBG pO2 177.7 mmHg (25-47) H 07/17/19 18: VBG HCO3 25.0 mmol/L (23-28) 07/17/19 18: VBG Total CO2 26.1 mmol/L (24-29) 07/17/19 18: VBG O2 Saturation 98.7 % (60-80) H 07/17/19 18:27 VBG Base Excess 1.4 mmol/L (-2 - +2) 07/17/19 18: Sodium 122 mmol/L (135-145) L 07/17/19 17:20 Potassium 3.9 mmol/L (3.5-5.0) 07/17/19 17:20 Chloride 77 mmol/L (101-111) L* 07/17/19 17:20 Carbon Dioxide 26 mmol/L (21-32) 07/17/19 17:20 Anion Gap 19.0 (6-13) H 07/17/19 17:20 BUN 48 mg/dL (6-20) H 07/17/19 17:20 Creatinine 2.2 mg/dL (0.4-1.0) H 07/17/19 17:20 Estimated GFR (MDRD) 24 (>89) L 07/17/19 17:20 Glucose 509 mg/dL (70-100) H* 07/17/19 17:20 Lactic Acid 1.4 mmol/L (0.5-2.2) 07/17/19 17:20 Calcium 8.5 mg/dL (8.5-10.3) 07/17/19 17:20 Total Bilirubin 1.1 mg/dL (0.2-1.0) H 07/17/19 17:20 AST 16 IU/L (10-42) 07/17/19 17:20 ALT 14 IU/L (10-60) 07/17/19 17:20 Alkaline Phosphatase 133 IU/L (42-121) H 07/17/19 17:20 C-Reactive Protein 28.3 mg/dL (0-1.0) H 07/17/19 17:20 Total Protein 7.1 g/dL (6.7-8.2) 07/17/19 17:20 Albumin 3.3 g/dL (3.2-5.5) 07/17/19 17:20 Globulin 3.8 g/dL (2.1-4.2) 07/17/19 17:20 Albumin/Globulin Ratio 0.9 (1.0-2.2) L 07/17/19 17:20 Lipase 15 U/L (22-51) L 07/17/19 17:20 Serum Ketones SMALL (NEGATIVE) H 07/17/19 17:20 - Diagnostic Imaging Results Diagnostic Imaging Results: positive: Final report reviewed Diagnostic Imaging Results Comments: Left foot x-ray: Progressive neuropathic arthropathy. No evidence of fracture or obvious osteomyelitis. Midfoot soft tissue swelling.
[2019-07-17] MEDS: HYDROmorphone 1 MG/ML CARPUJECT IVP PRN ×2 (19:50→22:01)
[2019-07-17] MEDS ORDERED: SODIUM CHLORIDE 0.9% 1,000 ML IV SCH (20:30)
[2019-07-17] MEDS ORDERED: CLINDAMYCIN 900 MG/50 ML 50 ML IV SCH (21:00)
--- NOTE | 2019-07-17 21:24 | ANESTHESIA PROCEDURE NOTE ---
Anesth Central Line Template - Central Line Central Line Preparation: Consent Obtained, Time out completed, Ultrasound used, Sterile prep and drape Central line location: Right IJ Central line type: Triple lumen Central line aftercare: Chlorhexidine disc placed, Secured, Placement confirmed, No pneumothorax, No complications, Bundle checklist complete, Pt tolerated well Other Info/Details: Secured at 14cm depth at skin
[2019-07-17] MEDS ORDERED: IPRATROPIUM/ALBUTEROL 3 ML NEB INH PRN (21:40)
[2019-07-17] MEDS ORDERED: INSULIN REGULAR HUMAN 300 UNIT/3 ML VIAL ONE (21:53)
--- NOTE | 2019-07-17 21:53 | XRAY Report ---
Reason: central line placement Procedure Date: 07/17/2019 Accession Number: [id number] / [id number] Procedure: XR - Chest for Line Placement CPT Code: Final Report FULL RESULT: EXAM: CHEST RADIOGRAPHY EXAM DATE: 07/17/2019 09:33 PM. CLINICAL HISTORY: Central line placement. COMPARISON: CHEST 2 VIEW 03/28/2019 1:28 PM. TECHNIQUE: 1 view. FINDINGS: Lungs/Pleura: No focal opacities evident. No pleural effusion. No pneumothorax. Mediastinum: Within exam limitations, the cardiomediastinal contour is normal. Right jugular venous catheter noted. Other: None. IMPRESSION: No acute cardiopulmonary process. Well-positioned right jugular venous catheter. [facility]
[2019-07-17] MEDS: HEPARIN 5,000 UNIT/ML VIAL SUBQ SCH (22:02)
[2019-07-17 22:25] LABS: BILIRUBIN,URINE NEGATIVE (NEGATIVE); GLUCOSE, URINE (UA) >=1000 mg/dL (NEGATIVE); KETONES,URINE (UA) 15 mg/dL (NEGATIVE); LEUKOCYTE ESTERASE, URINE NEGATIVE (NEGATIVE); NITRITE,URINE NEGATIVE (NEGATIVE); OCCULT BLOOD,URINE MODERATE (NEGATIVE); PH,URINE 5.5 PH (5.0-7.5); PROTEIN,URINE NEGATIVE (NEGATIVE); UROBILINOGEN,URINE 0.2 (NORMAL) E.U./dL (NORMAL)
[2019-07-17 22:26] LABS: CLARITY,URINE SL. CLOUDY (CLEAR)
[2019-07-17 22:28] LABS: HCG UR QUAL NEGATIVE
[2019-07-17 22:34] LABS: BACTERIA,URINE None Seen /HPF (None Seen); RBC,URINE 0-5 /HPF (0-5); SQUAMOUS EPITHELIAL CELL,UR MOD Squamous (<= Few)
[2019-07-17] MEDS: GABAPENTIN 300 MG CAPSULE PO SCH (22:52)
--- NOTE | 2019-07-17 23:02 | CT Report ---
Reason: Left foot swelling, erythema and ulcer Procedure Date: 07/17/2019 Accession Number: [id number] / [id number] Procedure: CT - LOWER EXTREMITY WO - LT CPT Code: Final Report FULL RESULT: EXAM: LEFT FOOT CT WITHOUT CONTRAST EXAM DATE: 07/17/2019 10:05 PM. CLINICAL HISTORY: Left foot swelling, erythema and ulcer. COMPARISON: FOOT 3 VIEW LT 07/17/2019 4:59 PM FOOT 3 VIEW LT 11/30/2015 3:18 PM FOOT 3 VIEW LT 11/09/2015 8:56 AM. TECHNIQUE: Thin-section axial images were acquired of the foot without contrast. Post-processing: Coronal and sagittal reformats. Other: None. In accordance with CT protocol optimization, one or more of the following dose reduction techniques were utilized for this exam: automated exposure control, adjustment of mA and/or KV based on patient size, or use of iterative reconstructive technique. FINDINGS: Soft tissue ulcer at the plantar medial aspect of the forefoot, plantar to the first MTP joint. There is isodense subcutaneous tissue at the plantar medial aspect of the forefoot, deep to the ulcer. There is an approximately 9 x 8 mm slightly hypodense subcutaneous focus of tissue also at the plantar medial aspect of the forefoot, deep to the ulcer. No soft tissue gas. Diffuse subcutaneous edema with swelling of the foot. Severe chronic osteoarthropathy with chronic bony fragmentation, sclerosis, subcortical cysts, cortical irregularity at the tarsometatarsal joints. Lateral subluxation of the base of the second metatarsal relative to the middle cuneiform by approximately 4 mm. Mild to moderate first MTP joint osteoarthritis. Chronic healed fracture at the distal aspect of the second metatarsal. Chronic, healed fractures at the distal aspects of the third and fourth metatarsals. Probable chronic healed fractures at the bases of the second and third and fourth proximal phalanges. Periarticular erosion at the fourth metatarsal head. Periarticular erosion at the fifth metatarsal head. Central erosion at the base of the fifth proximal phalanx. Chronic healed fracture at the distal aspect of the first distal phalanx. Moderate to severe narrowing and central erosions at the third PIP joint. Musculature: Normal. No fatty atrophy. IMPRESSION: 1. Soft tissue ulcer at the plantar medial aspect of the forefoot, plantar to the first MTP joint. There is an approximately 9 x 8 mm slightly hypodense subcutaneous focus of tissue deep to the ulcer which may represent phlegmon or abscess. Evaluation of the soft tissues is technically limited on this non-IV contrast exam. If warranted, further evaluation with MR imaging is suggested. No definitive evidence of osteomyelitis. 2. 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 Lateral subluxation of the base of the second metatarsal relative to the middle cuneiform. Differential may include neuropathic osteoarthropathy or an inflammatory arthritis. 3. Multiple healed fractures at the forefoot. No acute fracture. 4. Erosions at the fourth and fifth metatarsal heads, base of the fifth proximal phalanx, and third PIP joint. Differential may include neuropathic osteoarthropathy, inflammatory arthritis. Preliminary report given by Dr. Elliott on 07/17/2019, time 11:01 PM. [facility]
[2019-07-18 00:25] LABS: BASOPHILS # (AUTO) 0.2 10^3/uL (0.0-0.1); BASOPHILS % (AUTO) 0.9 %; EOSINOPHILS # (AUTO) 0.2 10^3/uL (0.0-0.7); EOSINOPHILS % (AUTO) 1.2 %; HGB - HEMOGLOBIN 8.7 g/dL (12.0-16.0); LYMPHOCYTES # (AUTO) 2.3 10^3/uL (1.5-3.5); MEAN CORPUSCULAR HEMOGLOBIN 29.5 pg (27.0-31.0); MEAN CORPUSCULAR HGB CONC 33.2 g/dL (32.0-36.0); MEAN CORPUSCULAR VOLUME 88.8 fL (81.0-99.0); MEAN PLATELET VOLUME 8.8 fL (7.9-10.8); MONOCYTES % (AUTO) 5.2 %; NEUTROPHILS # (AUTO) 15.5 10^3/uL (1.5-6.6); NEUTROPHILS % (AUTO) 78.8 %; PLT - PLATELET COUNT 316 10^3/uL (130-450); RED BLOOD COUNT 2.95 10^6/uL (4.20-5.40); RED CELL DISTRIBUTION WIDTH 13.2 % (12.0-15.0); WHITE BLOOD COUNT 19.6 x10^3/uL (4.8-10.8)
[2019-07-18] MEDS: PIPERACILLIN/TAZOBACTAM 4.5 GM in SODIUM CHLORIDE 0.9% MINIBAG 100 ML IV SCH ×7 (00:27→11:52)
--- NOTE | 2019-07-18 00:34 | Ultrasound Report ---
Reason: Left foot diabetic ulcer concern for PAD Procedure Date: 07/17/2019 Accession Number: [id number] / [id number] Procedure: US - Ankle Brachial Index CPT Code: Final Report FULL RESULT: EXAM: BILATERAL ANKLE/BRACHIAL INDEX EXAM DATE: 07/17/2019 11:30 PM. CLINICAL HISTORY: Left foot diabetic ulcer concern for PAD. History of hypertension, smoking, diabetes. COMPARISON: None. TECHNIQUE: A blood pressure cuff and pulse volume recording Doppler ultrasound was used to evaluate the arterial pressures in the arms and ankle. No images were acquired. FINDINGS: Brachial pressure: Right brachial artery: 104 mmHg, Left brachial artery: 102 mmHg, Right ankle: Posterior tibial artery is patent, with a triphasic waveform. Peak systolic velocity measures 114 cm/s. Dorsalis pedis artery is patent with peak systolic velocity of 80 cm/s. Pressure at the right ankle measures 127 mmHg. Left ankle: Peak systolic velocity within the posterior tibial artery measures 117 cm/s. Abnormal monophasic waveform. There is a monophasic waveform within the dorsalis pedis artery as well, with peak systolic velocity of 152 cm/s. This suggests greater than 50% stenosis within the dorsalis pedis artery. Furthermore, monophasic waveforms within the posterior tibial as well as dorsalis pedis artery suggest proximal stenosis. Pressure at the left ankle measures 120 mmHg. IMPRESSION: 1. Right ankle/brachial index: 1.22. 2. Left ankle/brachial index: 1.15. 3. Abnormal waveforms within the left-sided posterior tibial and dorsalis pedis arteries suggest proximal stenosis. ANKLE/BRACHIAL INDEX REFERENCE STANDARDS 1.0-1.4: Normal 0.90-0.99: Borderline < 0.9: Abnormal [facility]
[2019-07-18 00:35] LABS: CALCIUM 7.6 mg/dL (8.5-10.3); CREATININE 1.6 mg/dL (0.4-1.0); MAGNESIUM 1.6 mg/dL (1.7-2.8); PHOSPHORUS 3.4 mg/dL (2.5-4.6)
[2019-07-18] MEDS ORDERED: MAGNESIUM SULFATE 2 GRAM 2 GM/50 ML BAG IV ONE ×2 (00:42→01:37)
[2019-07-18] MEDS ORDERED: INSULIN GLARGINE 300 UNIT/3 ML PEN SUBQ SCH (00:49)
[2019-07-18] MEDS: HYDROmorphone 1 MG/ML CARPUJECT IVP PRN ×3 (00:57→08:45)
[2019-07-18] MEDS ORDERED: POTASSIUM CHLOR 10 MEQ/100 ML 10 MEQ/100 ML BAG IV SCH (01:00)
[2019-07-18] MEDS: SODIUM CHLORIDE 0.9% 1,000 ML IV SCH ×2 (01:05→07:53)
[2019-07-18] MEDS: SODIUM CHLORIDE FLUSH 0.9% 10 ML SYRINGE IVP SCH ×2 (01:05→09:22)
[2019-07-18 01:59] LABS: VBG PH 7.325 (7.31-7.41)
[2019-07-18] MEDS: POTASSIUM CHLOR 20 MEQ/100 ML 20 MEQ/100 ML BAG IV SCH ×4 (02:13→05:23)
[2019-07-18] MEDS ORDERED: CALCIUM GLUCONATE 1,000 MG in SODIUM CHLORIDE 0.9% 50 ML IV ONE (02:15)
[2019-07-18 05:11] LABS: BASOPHILS # (AUTO) 0.1 10^3/uL (0.0-0.1); BASOPHILS % (AUTO) 0.7 %; EOSINOPHILS # (AUTO) 0.4 10^3/uL (0.0-0.7); EOSINOPHILS % (AUTO) 2.1 %; HGB - HEMOGLOBIN 8.9 g/dL (12.0-16.0); LYMPHOCYTES # (AUTO) 2.3 10^3/uL (1.5-3.5); MEAN CORPUSCULAR HEMOGLOBIN 29.6 pg (27.0-31.0); MEAN CORPUSCULAR HGB CONC 33.1 g/dL (32.0-36.0); MEAN CORPUSCULAR VOLUME 89.4 fL (81.0-99.0); MONOCYTES # (AUTO) 1.3 10^3/uL (0.0-1.0); MONOCYTES % (AUTO) 7.2 %; NEUTROPHILS # (AUTO) 13.2 10^3/uL (1.5-6.6); NEUTROPHILS % (AUTO) 75.5 %; PLT - PLATELET COUNT 340 10^3/uL (130-450); RED BLOOD COUNT 3.01 10^6/uL (4.20-5.40); RED CELL DISTRIBUTION WIDTH 13.2 % (12.0-15.0); WHITE BLOOD COUNT 17.5 x10^3/uL (4.8-10.8)
[2019-07-18 05:30] LABS: CALCIUM 8.1 mg/dL (8.5-10.3); CREATININE 1.5 mg/dL (0.4-1.0); CRP - C-REACTIVE PROTEIN 30.1 mg/dL (0-1.0); MAGNESIUM 2.5 mg/dL (1.7-2.8); PHOSPHORUS 3.3 mg/dL (2.5-4.6)
[2019-07-18] MEDS: GABAPENTIN 300 MG CAPSULE PO SCH ×2 (05:30→13:28)
[2019-07-18 05:50] LABS: HB2 TOTAL 9.4 g/dL; HEMOGLOBIN A1C 1.18 g/dL; HEMOGLOBIN A1C % 13.6 % (4.6-6.2)
[2019-07-18] MEDS ORDERED: LEVOTHYROXINE 75 MCG TABLET PO SCH (07:00)
[2019-07-18] MEDS: INSULIN ASPART 300 UNIT/3 ML PEN SUBQ SCH ×2 (08:10→12:40)
[2019-07-18] MEDS ORDERED: HYDROmorphone 0.5 MG/0.5 ML SYRINGE IVP PRN (08:16)
--- NOTE | 2019-07-18 08:17 | CONSULTATION NOTE ---
DATE OF SERVICE: 07/18/2019 Physician: Juan Lisa MD ORTHOPEDIC INPATIENT CONSULTATION REFERRING PHYSICIAN: Dr. Infante of the medical service. CHIEF COMPLAINT: "My left foot is infected." HISTORY OF PRESENT ILLNESS: Patient is a 44-year-old female diabetic, who presented to the ER on the day of her admission with a several day history of progressive swelling, redness and drainage from her left medial forefoot region. She denies any trauma to her foot. No history of any fever or chills. She does, however, have a rather dense peripheral neuropathy from her diabetes affecting her lower extremities. PHYSICAL EXAMINATION: Patient was noted to be afebrile. Left foot: There appears to have had a debridement of a plantar ulceration over the medial forefoot of the left foot. Appears to be superficial with minimal active drainage now. There is no obvious fluctuance on palpation around the forefoot area of this leg. She does have surrounding erythema and mild swelling, which does extend proximally to above her ankle. Patient has no obvious pain or tenderness though she again does have a rather dense peripheral neuropathy noted. Patient has active motion of her toes noted. IMAGING: Review of the CT scan and x-rays of her foot show no obvious osteomyelitis present on these films. There is a suggestion of a rather small subcutaneous abscess seen on CT scan. Also, evidence of prior healed fractures in the forefoot. LABORATORY DATA: Patient's blood work did show evidence of elevated white count of 25,600 with a left shift. Has a sedimentation rate of 36 as well as a C- reactive protein of 30. ASSESSMENT: Left foot diabetic infection - appears as if it may be associated with a small abscess seen on the CT scanner. Unclear whether there may be bony involvement or not. PLAN: Would advise getting an MRI scan. Since this is not available at our facility for the next 3-4 days, would suggest possible transfer to another facility where the MRI scan can be completed and a more definitive plan with regard to any surgery can be made. The patient is a [facility] patient, and we will try to see if [facility] will take her in transfer. In the meantime, would continue with broad-spectrum antibiotics as she is on for treatment of the cellulitic component of her problem. She may or may not require peripheral vascular workup as well, although her ABIs were not horrible on her admission here. If unable to transfer her this weekend, would continue on bedrest with elevation and IV antibiotics and see if clinically there is any loom changeover operator the weekend, would then get an MRI scan when it is possible here at this facility, again if she is unable to be transferred to [facility] prior to that time. TD: 07/18/2019 08:08 SAMEER
[2019-07-18] MEDS: HEPARIN 5,000 UNIT/ML VIAL SUBQ SCH (08:31)
--- NOTE | 2019-07-18 08:54 | PHARMACY PROGRESS NOTE ---
- Therapy Status Therapy status: Awaiting steady state Basis for treatment: Empirical Treatment indication: CELLULITIS Trough goal: 15-20 Concurrent antibiotics: ZOSYN - MARTITA Risk Risk level for Acute Kidney Injury: Moderate Acute Kidney Injury risk factors: Piperacillin/Tozobactam, Goal trough >15, Admission to ICU - Monitoring and Recommendation Clinical response to treatment: I&O Previous 24 hours 07/16/19 07/17/19 07/18/19 23:59 23:59 23:59 Intake Total 150 6207 Output Total 300 500 Balance -150 5707 Lab Results 07/18/19 07/18/19 07/17/19 04:35 00:10 17:20 ESR 36 H BUN 40 H 41 H Creatinine 1.5 H 1.6 H Estimated GFR (MDRD) 38 L 35 L 07/17/19 17:20 ESR BUN 48 H Creatinine 2.2 H Estimated GFR (MDRD) 24 L Cultures 07/17/19 17:45 Foot - Left Wound Culture - Preliminary 07/17/19 16:53 Foot - Left Wound Culture - Preliminary Monitoring plan: Daily serum creatinine (TROUGH SCHEDULED 07/19 @ 1700 (BEFORE 4TH DOSE))
[2019-07-18] MEDS ORDERED: NICOTINE 14 MG PATCH TOP SCH (09:00)
[2019-07-18] MEDS ORDERED: CITALOPRAM HYDROBROMIDE 20 MG TABLET PO SCH (09:00)
[2019-07-18] MEDS ORDERED: polyethylene glycoL 3350 17 GM PACKET PO SCH (11:00)
--- NOTE | 2019-07-18 12:07 | DISCHARGE SUMMARY ---
"Discharge Summary Admit Date: 07/17/19 Discharge Date: 07/18/19 Discharging Provider: Isai Verduzco Primary Care Provider: Adelia Dee Code Status: Attempt Resuscitation Condition at Discharge: Stable Discharge Disposition: 02 Transfer Acute Care Hosp Discharge [facility] Name: [facility] - DIAGNOSES Admission Diagnoses: Sepsis Diabetic infection of left foot Diabetic ketoacidosis MARTITA Hypertension Hypothyroidism Hyponatremia Depression Tobacco abuse Peripheral neuropathy Asthma Discharge Diagnoses with Status of Each Condition: Sepsis - improving. She was never hypotensive or tachycardic. Her white count was 25 on admission's is improved to 17. She never required vasopressors. She remains on IV saline. Diabetic infection of left foot - ongoing. Cassius on IV vancomycin and Zosyn at this time. She did receive 1 dose of clindamycin IV yesterday. White count is improving but her CRP is increasing. Will be transferred for further imaging with MRI. Diabetic ketoacidosis - resolved. She was treated with IV insulin transition to subcutaneous insulin. Her A1c was 13.6%. MARTITA - improving. Creatinine was 2 on admission is improved to 1.5. Her baseline is approximately 1.0. Charcot foot - stable. She did follow with Dr. Cho on an outpatient basis who is a exam proctor in [place]. Hypothyroidism - stable. Continued on her home Synthroid. Hyponatremia - improving. Likely hypovolemic hyponatremia and pseudo secondary to hypoglycemia. Has improved with IV saline. Depression/Anxiety - stable. She has been continued on her home Abilify, Celexa. Tobacco abuse - stable. She was placed on a nicotine patch. Peripheral neuropathy - stable. Her home gabapentin was continued. Asthma - stable. Not in exacerbation. She was continued on DuoNeb as needed. - HPI History of Present Illness: H&P per Dr. Infante on 07/17/19: Patient is a 44-year-old female with a past medical history significant for type 1 diabetes mellitus since the age of 9 on insulin, hypertension, hypothyroidism, peripheral neuropathy, Charcot's joint of the left foot, asthma, diabetic retinopathy, diabetic gastroparesis and carpal tunnel syndrome who p resented to the emergency department with a chief complaint of left foot pain and swelling. According to the patient she began having some pain in her left foot a few days ago when she looked down she noticed that she had a small area of on the bottom of her left foot beneath her big toe which appeared to be blistered. The patient states that the blister became worse yesterday and first today. She states after the blister burst she noted that she has had increased swelling in the foot and today her pain became so severe that she had to come into the emergency department. The patient denies having had any fevers or chills. She states that at home she has been checking her blood sugars and they have been running in the 200-300s. She does admit that for the last 2 days that she has had increased nausea and vomiting. She states overall she has not been feeling well. She states that she is not been able to keep much down over the last 2 days. She denies any headaches, blurred vision, runny nose, sore throat, nasal congestion, chest pain, shortness of air, cough, orthopnea, PND, increased lower extremity swelling, urinary urgency, urinary frequency, dysuria, back pain, neck stiffness, recent unintentional weight loss, night sweats or any focal neurologic deficits. The patient does state that today she is noted that she has polydipsia and polyphagia. She states although she has not eaten much the last 2 days she does feel as though she has increased appetite today. On presentation to the emergency department the patient was afebrile, tachycardic with heart rate of 98 and had a borderline blood pressure of 99/61. The patient was not tachypneic and not in any respiratory distress or hypoxic. She underwent routine lab work which did reveal leukocytosis of 25.6 with a left shift, elevated ESR of 36 and CRP of 28.3. The patient also had severe dehydration on lab work with a sodium of 122, chloride of 77, creatinine of 2.2 which was significantly elevated from her baseline. The patient's blood glucose on presentation was 519 and she had an elevated anion gap with positive ketones in her serum. The patient's left foot was extremely swollen with a ulcerated ar ea on the plantar aspect of the medial left foot. The area was large with overlying swelling and erythema. The patient appeared to have sepsis secondary to a diabetic foot infection with secondary diabetic ketoacidosis. She was admitted to the intensive care unit on an insulin drip. The patient was given IV vancomycin and Zosyn in the emergency department. Blood cultures and wound cultures were obtained in the emergency department. - CONSULTS | PROCEDURES Consultations: Orthopedics Procedures: CT of the left lower extremity showed a soft tissue ulcer the plantar medial aspect of the forefoot, plantar to the first MTP joint. There is an approximate 9 x 8 mm slightly hypodense subcutaneous focus of tissue deep to the ulcer which may represent phlegmon or abscess. Evaluation of the soft tissues is technically limited on this non-IV contrast exam. If warranted, further evaluation with MR imaging is suggested. No evidence of osteomyelitis. 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 Lateral subluxation of the base of the second metatarsal out of the medial cuneiform. Differential may include neuropathic osteoarthropathy or inflammatory arthritis. Multiple healed fracture of the forefoot. No acute fracture. Origin of the fourth and fifth metatarsal heads, base of the fifth proximal phalanx, and third PIP joint. Differential may include neuropathy osteoarthropathy, inflammatory arthritis. ELEN of both extremities showed right ankle/brachial index is 1.22. Left ankle/brachial index is 1.15. Abnormal waveforms the left-sided posterior tibial and dorsalis pedis artery suggest proximal stenosis. - HOSPITAL COURSE Hospital Course: She was admitted to the ICU for sepsis secondary to diabetic infection of the left foot. She also had mild diabetic ketoacidosis as well as acute kidney injury. The reason she was in the intensive care unit was for an insulin drip given the diabetic ketoacidosis as this is not possible on the [facility] floor here at our facility. She was treated with vancomycin and Zosyn IV. There was initial concern for possible necrotizing fasciitis and so she was given a dose of clindamycin IV. Initial x-ray of the left foot did not suggest osteomyelitis or any gas. A CT of the left lower extremity was obtained without IV contrast given her acute kidney injury which showed a soft tissue ulcer the plantar medial aspect of the forefoot, plantar to the first MTP joint. There is an approximate 9 x 8 mm slightly hypodense subcutaneous focus of tissue deep to the ulcer which may represent phlegmon or abscess. Repeat lactic acid and CK were checked which were within normal limits. ABIs were also obtained which showed right ankle/brachial index is 1.22. Left ankle/brachial index is 1.15. Abnormal waveforms the left-sided posterior tibial and dorsalis pedis artery suggest proximal stenosis. She was maintained on vancomycin and Zosyn IV during this hospitalization. Her white count did improve the following day down to 17 from 25. Her CRP did increase from 28-30. Her DKA had resolved and she was transitioned to sub cutaneous insulin. She likely on admission, had mixed metabolic alkalosis and acidosis from the DKA given she had nausea and vomiting for 2 days prior to admission. Her VBG and labs were suggestive of this. She also had hyponatremia which was likely due to hypovolemia as well as her hyperglycemia. This has improved with IV saline and she remains on normal saline at 150 cc an hour. He was evaluated by orthopedics in the morning who recommended obtaining an MRI of the left foot. Unfortunately not available at our facility until the following Sunday. A decision was made to transfer the patient to a higher level of care to obtain further imaging and for possible surgical intervention. The patient was graciously accepted by Dr. Gi Cobos of [place] [facility]. Patient was transferred in stable condition. - ALLERGIES Allergies/Adverse Reactions: Allergies Allergy/AdvReac Type Severity Reaction Status Date / Time morphine Allergy Hallucinati Verified 07/17/19 16:45 ons - MEDICATIONS Home Medications: Ambulatory Orders Medication Instructions Recorded Confirmed Gabapentin 300 mg PO TID 08/21/17 07/17/19 Ondansetron [Ondansetron Odt] 4 mg TL Q6H PRN 08/21/17 07/17/19 Metoclopramide [Reglan] 10 mg PO BID 10/07/17 07/18/19 Ipratropium/Albuterol [Duoneb] 3 ml INH QID PRN 11/06/17 07/17/19 Pantoprazole Sodium 40 mg PO BID 11/06/17 07/18/19 ARIPiprazole [Aripiprazole] 10 mg PO QPM 07/17/19 07/17/19 Albuterol Sulfate [Albuterol 2 puffs INH Q4H PRN 07/17/19 07/17/19 Sulfate Hfa] Citalopram Hydrobromide [Celexa] 40 mg PO DAILY 07/17/19 07/17/19 Insulin Glargine [Lantus Solostar] 12 units SQ QDBREAKFAST 07/17/19 07/18/19 Insulin Glulisine [Apidra] 30 unit SUBQ UD 07/17/19 07/18/19 Levothyroxine Sodium 75 mcg PO QDAC 07/17/19 07/17/19 Insulin Glargine [Lantus Solostar] 6 units SQ QPM 07/18/19 07/18/19 - PHYSICAL EXAM AT DISCHARGE General Appearance: positive: Alert Eyes Bilateral: positive: Normal inspection ENT: positive: ENT inspection nml Neck: positive: Nml inspection Respiratory: positive: No respiratory distress. negative: Wheezes, Rales, Rhonchi Cardiovascular: positive: Regular rate & rhythm, No murmur. negative: Tachycardia, Bradycardia, Systolic murmur Abdomen: positive: Non-tender, No distention. negative: Tenderness Skin: positive: Warm, Dry, Other (There is erythema over the dorsum of the left foot with edema.) Extremities: positive: Pedal edema (She has +1 pitting edema in her left lower extremity.), Other (There is a large area of ulceration and skin breakdown over the medial plantar aspect of the left foot. The area is warm to touch with serosanguineous drainage. The left large toe ppears dusky. She is able to move her toes.) Neurologic/Psychiatric: positive: Oriented x3, Depressed mood/affect (She is tearful and anxious about possibility of her losing her left foot.). negative: Disoriented to person, Disoriented to place, Disoriented to time Physical Exam Other/Comments: Vital Signs - 24 hr 07/17/19 07/17/19 07/17/19 16:39 17:37 18:30 Temperature 36.9 C Heart Rate 98 92 87 Heart Rate [ Monitoring electrodes] Respiratory 16 16 16 Rate Blood Pressure 99/61 138/83 H 108/74 Blood Pressure [Right Brachial artery] O2 Saturation 98 99 96 07/17/19 07/17/19 07/17/19 19:00 20:00 21:00 Temperature 36.8 C Heart Rate Heart Rate [ 83 80 Monitoring electrodes] Respiratory 14 13 15 Rate Blood Pressure Blood Pressure 118/79 108/68 115/75 [Right Brachial artery] O2 Saturation 98 95 94 07/17/19 07/17/19 07/18/19 22:24 23:00 00:00 Temperature 36.9 C Heart Rate Heart Rate [ 82 83 76 Monitoring electrodes] Respiratory 12 14 12 Rate Blood Pressure Blood Pressure 109/67 126/64 99/68 [Right Brachial artery] O2 Saturation 99 95 91 L 07/18/19 07/18/19 07/18/19 01:00 02:00 03:00 Temperature Heart Rate Heart Rate [ 79 75 79 Monitoring electrodes] Respiratory 10 L 11 L 12 Rate Blood Pressure Blood Pressure 104/66 94/63 96/59 L [Right Brachial artery] O2 Saturation 93 94 96 07/18/19 07/18/19 07/18/19 04:00 05:00 05:37 Temperature 36.8 C Heart Rate 85 Heart Rate [ 79 79 Monitoring electrodes] Respiratory 14 12 18 Rate Blood Pressure Blood Pressure 104/72 93/64 [Right Brachial artery] O2 Saturation 96 96 07/18/19 07/18/19 07/18/19 06:00 07:00 08:00 Temperature Heart Rate Heart Rate [ 79 77 86 Monitoring electrodes] Respiratory 13 9 L 19 Rate Blood Pressure Blood Pressure 97/62 95/67 116/76 [Right Brachial artery] O2 Saturation 96 93 98 07/18/19 07/18/19 07/18/19 09:00 10:00 11:00 Temperature 37.1 C Heart Rate Heart Rate [ 81 74 75 Monitoring electrodes] Respiratory 12 10 L 11 L Rate Blood Pressure Blood Pressure 95/63 104/67 117/77 [Right Brachial artery] O2 Saturation 90 L 100 100 07/18/19 12:00 Temperature 36.9 C Heart Rate Heart Rate [ 81 Monitoring electrodes] Respiratory 22 Rate Blood Pressure Blood Pressure 130/85 H [Right Brachial artery] O2 Saturation 100 Oxygen O2 Source Room air - LABS Result Diagrams: 07/18/19 04:35 07/18/19 04:35 Other Lab Results: Laboratory Tests 07/17/19 07/17/19 07/17/19 17:20 17:20 17:20 WBC 25.6 H RBC 3.55 L Hgb 10.4 L Hct 31.5 L MCV 88.7 MCH 29.3 MCHC 33.0 RDW 13.1 Plt Count 398 MPV 9.1 Neut # (Auto) 21.6 H Lymph # (Auto) 1.5 Dougherty # (Auto) 1.9 H Eos # (Auto) 0.0 Baso # (Auto) 0.0 Absolute Nucleated RBC 0.00 Nucleated RBC % 0.0 Manual Slide Review Indicated WBC Morphology 1+ TOXIC GRANULATION Platelet Estimate NORMAL (130-450,000) Platelet Morphology NORMAL APPEARANCE RBC Morph Micro Appear 1+ STOMATOCYTES ESR VBG pH VBG pCO2 VBG pO2 VBG HCO3 VBG Total CO2 VBG O2 Saturation VBG Base Excess Ionized Calcium Sodium 122 L Potassium 3.9 Chloride 77 L* Carbon Dioxide 26 Anion Gap 19.0 H BUN 48 H Creatinine 2.2 H Estimated GFR (MDRD) 24 L Glucose 509 H* POC Whole Bld Glucose Glycated Hemoglobin Estim Average Glucose Lactic Acid 1.4 Calcium 8.5 Phosphorus Magnesium Total Bilirubin 1.1 H AST 16 ALT 14 Alkaline Phosphatase 133 H Total Creatine Kinase C-Reactive Protein 28.3 H Total Protein 7.1 Albumin 3.3 Globulin 3.8 Albumin/Globulin Ratio 0.9 L Lipase 15 L Urine Color Urine Clarity Urine pH Ur Specific [place] Urine Protein Urine Glucose (UA) Urine Ketones Urine Occult Blood Urine Nitrite Urine Bilirubin Urine Urobilinogen Ur Leukocyte Esterase Urine RBC Urine WBC Ur Squamous Epith Cells Urine Bacteria Ur Microscopic Review Urine Culture Comments Urine HCG, Qual Nasal Screen MRSA (PCR) Serum Ketones SMALL H 07/17/19 07/17/19 07/17/19 17:20 18:27 19:00 WBC RBC Hgb Hct MCV MCH MCHC RDW Plt Count MPV Neut # (Auto) Lymph # (Auto) Dougherty # (Auto) Eos # (Auto) Baso # (Auto) Absolute Nucleated RBC Nucleated RBC % Manual Slide Review WBC Morphology Platelet Estimate Platelet Morphology RBC Morph Micro Appear ESR 36 H VBG pH 7.465 H VBG pCO2 35.5 L VBG pO2 177.7 H VBG HCO3 25.0 VBG Total CO2 26.1 VBG O2 Saturation 98.7 H VBG Base Excess 1.4 Ionized Calcium Sodium Potassium Chloride Carbon Dioxide Anion Gap BUN Creatinine Estimated GFR (MDRD) Glucose POC Whole Bld Glucose Glycated Hemoglobin Estim Average Glucose Lactic Acid Calcium Phosphorus Magnesium Total Bilirubin AST ALT Alkaline Phosphatase Total Creatine Kinase C-Reactive Protein Total Protein Albumin Globulin Albumin/Globulin Ratio Lipase Urine Color Urine Clarity Urine pH Ur Specific [place] Urine Protein Urine Glucose (UA) Urine Ketones Urine Occult Blood Urine Nitrite Urine Bilirubin Urine Urobilinogen Ur Leukocyte Esterase Urine RBC Urine WBC Ur Squamous Epith Cells Urine Bacteria Ur Microscopic Review Urine Culture Comments Urine HCG, Qual Nasal Screen MRSA (PCR) NEGATIVE Serum Ketones 07/17/19 07/17/19 07/17/19 22:00 22:21 23:32 WBC RBC Hgb Hct MCV MCH MCHC RDW Plt Count MPV Neut # (Auto) Lymph # (Auto) Dougherty # (Auto) Eos # (Auto) Baso # (Auto) Absolute Nucleated RBC Nucleated RBC % Manual Slide Review WBC Morphology Platelet Estimate Platelet Morphology RBC Morph Micro Appear ESR VBG pH VBG pCO2 VBG pO2 VBG HCO3 VBG Total CO2 VBG O2 Saturation VBG Base Excess Ionized Calcium Sodium Potassium Chloride Carbon Dioxide Anion Gap BUN Creatinine Estimated GFR (MDRD) Glucose POC Whole Bld Glucose 433 H 356 H Glycated Hemoglobin Estim Average Glucose Lactic Acid Calcium Phosphorus Magnesium Total Bilirubin AST ALT Alkaline Phosphatase Total Creatine Kinase C-Reactive Protein Total Protein Albumin Globulin Albumin/Globulin Ratio Lipase Urine Color YELLOW Urine Clarity SL. CLOUDY Urine pH 5.5 Ur Specific [place] 1.015 Urine Protein NEGATIVE Urine Glucose (UA) >=1000 H Urine Ketones 15 H Urine Occult Blood MODERATE H Urine Nitrite NEGATIVE Urine Bilirubin NEGATIVE Urine Urobilinogen 0.2 (NORMAL) Ur Leukocyte Esterase NEGATIVE Urine RBC 0-5 Urine WBC 0-3 Ur Squamous Epith Cells MOD Squamous H Urine Bacteria None Seen Ur Microscopic Review INDICATED Urine Culture Comments NOT INDICATED Urine HCG, Qual NEGATIVE Nasal Screen MRSA (PCR) Serum Ketones 07/18/19 07/18/19 07/18/19 00:10 00:10 00:10 WBC RBC Hgb Hct MCV MCH MCHC RDW Plt Count MPV Neut # (Auto) Lymph # (Auto) Dougherty # (Auto) Eos # (Auto) Baso # (Auto) Absolute Nucleated RBC Nucleated RBC % Manual Slide Review WBC Morphology Platelet Estimate Platelet Morphology RBC Morph Micro Appear ESR VBG pH VBG pCO2 VBG pO2 VBG HCO3 VBG Total CO2 VBG O2 Saturation VBG Base Excess Ionized Calcium Sodium 127 L Potassium 2.9 L Chloride 89 L Carbon Dioxide 28 Anion Gap 10.0 BUN 41 H Creatinine 1.6 H Estimated GFR (MDRD) 35 L Glucose 335 H POC Whole Bld Glucose Glycated Hemoglobin Estim Average Glucose Lactic Acid 1.0 Calcium 7.6 L Phosphorus 3.4 Magnesium 1.6 L Total Bilirubin AST ALT Alkaline Phosphatase Total Creatine Kinase 35 C-Reactive Protein Total Protein Albumin Globulin Albumin/Globulin Ratio Lipase Urine Color Urine Clarity Urine pH Ur Specific [place] Urine Protein Urine Glucose (UA) Urine Ketones Urine Occult Blood Urine Nitrite Urine Bilirubin Urine Urobilinogen Ur Leukocyte Esterase Urine RBC Urine WBC Ur Squamous Epith Cells Urine Bacteria Ur Microscopic Review Urine Culture Comments Urine HCG, Qual Nasal Screen MRSA (PCR) Serum Ketones 07/18/19 07/18/19 07/18/19 00:10 00:38 01:50 WBC 19.6 H RBC 2.95 L Hgb 8.7 L Hct 26.2 L MCV 88.8 MCH 29.5 MCHC 33.2 RDW 13.2 Plt Count 316 MPV 8.8 Neut # (Auto) 15.5 H Lymph # (Auto) 2.3 Dougherty # (Auto) 1.0 Eos # (Auto) 0.2 Baso # (Auto) 0.2 H Absolute Nucleated RBC 0.00 Nucleated RBC % 0.0 Manual Slide Review WBC Morphology Platelet Estimate Platelet Morphology RBC Morph Micro Appear ESR VBG pH 7.325 VBG pCO2 VBG pO2 VBG HCO3 VBG Total CO2 VBG O2 Saturation VBG Base Excess Ionized Calcium 1.05 L Sodium Potassium Chloride Carbon Dioxide Anion Gap BUN Creatinine Estimated GFR (MDRD) Glucose POC Whole Bld Glucose 294 H Glycated Hemoglobin Estim Average Glucose Lactic Acid Calcium Phosphorus Magnesium Total Bilirubin AST ALT Alkaline Phosphatase Total Creatine Kinase C-Reactive Protein Total Protein Albumin Globulin Albumin/Globulin Ratio Lipase Urine Color Urine Clarity Urine pH Ur Specific [place] Urine Protein Urine Glucose (UA) Urine Ketones Urine Occult Blood Urine Nitrite Urine Bilirubin Urine Urobilinogen Ur Leukocyte Esterase Urine RBC Urine WBC Ur Squamous Epith Cells Urine Bacteria Ur Microscopic Review Urine Culture Comments Urine HCG, Qual Nasal Screen MRSA (PCR) Serum Ketones 07/18/19 07/18/19 07/18/19 04:02 04:35 04:35 WBC 17.5 H RBC 3.01 L Hgb 8.9 L Hct 26.9 L MCV 89.4 MCH 29.6 MCHC 33.1 RDW 13.2 Plt Count 340 MPV 9.0 Neut # (Auto) 13.2 H Lymph # (Auto) 2.3 Dougherty # (Auto) 1.3 H Eos # (Auto) 0.4 Baso # (Auto) 0.1 Absolute Nucleated RBC 0.00 Nucleated RBC % 0.0 Manual Slide Review WBC Morphology Platelet Estimate Platelet Morphology RBC Morph Micro Appear ESR VBG pH VBG pCO2 VBG pO2 VBG HCO3 VBG Total CO2 VBG O2 Saturation VBG Base Excess Ionized Calcium Sodium 129 L Potassium 4.3 Chloride 93 L Carbon Dioxide 28 Anion Gap 8.0 BUN 40 H Creatinine 1.5 H Estimated GFR (MDRD) 38 L Glucose 183 H POC Whole Bld Glucose 164 H Glycated Hemoglobin Estim Average Glucose Lactic Acid Calcium 8.1 L Phosphorus 3.3 Magnesium 2.5 Total Bilirubin AST ALT Alkaline Phosphatase Total Creatine Kinase C-Reactive Protein 30.1 H Total Protein Albumin Globulin Albumin/Globulin Ratio Lipase Urine Color Urine Clarity Urine pH Ur Specific [place] Urine Protein Urine Glucose (UA) Urine Ketones Urine Occult Blood Urine Nitrite Urine Bilirubin Urine Urobilinogen Ur Leukocyte Esterase Urine RBC Urine WBC Ur Squamous Epith Cells Urine Bacteria Ur Microscopic Review Urine Culture Comments Urine HCG, Qual Nasal Screen MRSA (PCR) Serum Ketones 07/18/19 07/18/19 07/18/19 04:35 04:35 07:56 WBC RBC Hgb Hct MCV MCH MCHC RDW Plt Count MPV Neut # (Auto) Lymph # (Auto) Doug[place] # (Auto) Eos # (Auto) Baso # (Auto) Absolute Nucleated RBC Nucleated RBC % Manual Slide Review WBC Morphology Platelet Estimate Platelet Morphology RBC Morph Micro Appear ESR VBG pH VBG pCO2 VBG pO2 VBG HCO3 VBG Total CO2 VBG O2 Saturation VBG Base Excess Ionized Calcium Sodium Potassium Chloride Carbon Dioxide Anion Gap BUN Creatinine Estimated GFR (MDRD) Glucose POC Whole Bld Glucose 155 H Glycated Hemoglobin 13.6 H Estim Average Glucose 344 H Lactic Acid Calcium Phosphorus Magnesium Total Bilirubin AST ALT Alkaline Phosphatase Total Creatine Kinase C-Reactive Protein Total Protein Albumin 2.5 L Globulin Albumin/Globulin Ratio Lipase Urine Color Urine Clarity Urine pH Ur Specific [place] Urine Protein Urine Glucose (UA) Urine Ketones Urine Occult Blood Urine Nitrite Urine Bilirubin Urine Urobilinogen Ur Leukocyte Esterase Urine RBC Urine WBC Ur Squamous Epith Cells Urine Bacteria Ur Microscopic Review Urine Culture Comments Urine HCG, Qual Nasal Screen MRSA (PCR) Serum Ketones 07/18/19 11:33 WBC RBC Hgb Hct MCV MCH MCHC RDW Plt Count MPV Neut # (Auto) Lymph # (Auto) Dougherty # (Auto) Eos # (Auto) Baso # (Auto) Absolute Nucleated RBC Nucleated RBC % Manual Slide Review WBC Morphology Platelet Estimate Platelet Morphology RBC Morph Micro Appear ESR VBG pH VBG pCO2 VBG pO2 VBG HCO3 VBG Total CO2 VBG O2 Saturation VBG Base Excess Ionized Calcium Sodium Potassium Chloride Carbon Dioxide Anion Gap BUN Creatinine Estimated GFR (MDRD) Glucose POC Whole Bld Glucose 215 H Glycated Hemoglobin Estim Average Glucose Lactic Acid Calcium Phosphorus Magnesium Total Bilirubin AST ALT Alkaline Phosphatase Total Creatine Kinase C-Reactive Protein Total Protein Albumin Globulin Albumin/Globulin Ratio Lipase Urine Color Urine Clarity Urine pH Ur Specific [place] Urine Protein Urine Glucose (UA) Urine Ketones Urine Occult Blood Urine Nitrite Urine Bilirubin Urine Urobilinogen Ur Leukocyte Esterase Urine RBC Urine WBC Ur Squamous Epith Cells Urine Bacteria Ur Microscopic Review Urine Culture Comments Urine HCG, Qual Nasal Screen MRSA (PCR) Serum Ketones Microbiology 07/17/19 16:53 Wound Culture - Preliminary Foot - Left Beta Hemolytic Strep Group B 07/17/19 17:45 Wound Culture - Preliminary Foot - Left Beta Hemolytic Strep Group B - SEPSIS Current Stage of Sepsis: Sepsis Possible source of Sepsis: Skin/soft tissue Sepsis Criteria: Recorded Heart Rate greater than 90 bpm, WBC count greater than 12,000 or less than 4000, Renal: urine output less than 0.5ml/kg/hr for 2 hours or creatinine gr - TIME SPENT Time Spent in Discharge (Minutes): 45"
--- NOTE | 2019-07-18 12:10 | PHARMACY PROGRESS NOTE ---
- Best Possible Medication History Admit Date and Time: 07/17/19 1820 Processed by: Pharmacy Medication History completed: Yes Patient Interview: Completed Secondary Source(s): Insurance records (PATIENT WAS ABLE TO CONFIRM HOME MEDICATIONS ) As the person ultimately responsible for medication therapy, providers are able to order a medication from an existing home medication list in [facility] via the "Reconcile Routine" prior to Confirmation of that medication by technical support agent. Such practice is discouraged except when the physician, in their clinical judgment, deems that a medical need exists for a medication without regard to previous use.
[2019-07-18 13:14] VITALS: BP 138/83
[2019-07-18] MEDS ORDERED: VANCOMYCIN INJ 0.75 GM in SODIUM CHLORIDE 0.9% 250 ML IV SCH (18:00)
[2019-07-18] MEDS ORDERED: VANCOMYCIN INJ 1 GM, VANCOMYCIN INJ 250 MG in SODIUM CHLORIDE 0.9% 250 ML IV SCH (18:00)
[2019-07-18] MEDS ORDERED: ARIPiprazole 5 MG TABLET PO SCH (21:00)
[2019-07-18] MEDS ORDERED: PRAVASTATIN 10 MG TABLET PO SCH (21:00)
== END 2019-07-18 13:25 | disposition short-term general hospital (02) | DRG 871 ==
LOC: ED 16:35 → ICU 18:20
PROVIDERS: ADMIT Internal Medicine; ATTEND Internal Medicine
PROC: 05HM33Z Insertion of Infusion Device into Right Internal Jugular Vein, Percutaneous Approach (ICD-10-PCS; principal; 2019-07-17)
DX: A41.9 Sepsis, unspecified organism (principal); E10.10 Type 1 diabetes mellitus with ketoacidosis without coma; N17.9 Acute kidney failure, unspecified; E87.1 Hypo-osmolality and hyponatremia; L97.429 Non-pressure chronic ulcer of left heel and midfoot with unspecified severity; L02.612 Cutaneous abscess of left foot; E10.628 Type 1 diabetes mellitus with other skin complications; E10.621 Type 1 diabetes mellitus with foot ulcer; R65.20 Severe sepsis without septic shock; E10.42 Type 1 diabetes mellitus with diabetic polyneuropathy; E10.610 Type 1 diabetes mellitus with diabetic neuropathic arthropathy; E10.319 Type 1 diabetes mellitus with unspecified diabetic retinopathy without macular edema; E10.43 Type 1 diabetes mellitus with diabetic autonomic (poly)neuropathy; K31.84 Gastroparesis; E86.0 Dehydration; F17.210 Nicotine dependence, cigarettes, uncomplicated; E03.9 Hypothyroidism, unspecified; I10 Essential (primary) hypertension; F32.9 Major depressive disorder, single episode, unspecified; F41.9 Anxiety disorder, unspecified; J45.909 Unspecified asthma, uncomplicated; G56.00 Carpal tunnel syndrome, unspecified upper limb; K21.9 Gastro-esophageal reflux disease without esophagitis; G89.29 Other chronic pain; M81.0 Age-related osteoporosis without current pathological fracture; M19.90 Unspecified osteoarthritis, unspecified site; Z72.89 Other problems related to lifestyle; Z79.4 Long term (current) use of insulin; Z79.51 Long term (current) use of inhaled steroids; Z87.01 Personal history of pneumonia (recurrent)
CPT/HCPCS: 36415; 73630; 73700; 80048; 80053; 81001; 81025; 82009; 82040; 82330; 82550; 82803; 83036; 83605; 83690; 83735; 84100; 85025; 85651; 86140; 87040; 87070; 87077; 87150; 87181; 87205; 93922; 94640; 96365; 96375; 99284; 99285; A9270; J1170; J1815; J3370; J7040; J8499; 71045; 81003; 87086

== ENCOUNTER 2019-07-18 13:37 | Outpatient (CLI) | payer OTHER | END 2019-07-18 13:38 | disposition short-term general hospital (02) | LOC: EMS 13:37 | PROVIDERS: ATTEND Surgery | DX: A41.9 Sepsis, unspecified organism (principal); L03.116 Cellulitis of left lower limb | CPT/HCPCS: A0425; A0428 ==

== ENCOUNTER 2019-09-07 18:14 | Outpatient (CLI) | payer OTHER | END 2019-09-07 18:15 | disposition short-term general hospital (02) | LOC: EMS 18:14 | PROVIDERS: ATTEND Surgery | DX: R55 Syncope and collapse (principal); R41.0 Disorientation, unspecified | CPT/HCPCS: A0425; A0427 ==

== ENCOUNTER 2019-10-13 05:07 | Outpatient (CLI) | payer OTHER | END 2019-10-13 05:08 | disposition critical access hospital (66) | LOC: EMS 05:07 | PROVIDERS: ATTEND Surgery | DX: R11.2 Nausea with vomiting, unspecified (principal); R73.09 Other abnormal glucose; R53.1 Weakness; R52 Pain, unspecified | CPT/HCPCS: A0425; A0427 ==